=== PATIENT | male | born 1955 | race Caucasian/White ===

== ENCOUNTER 2025-03-05 13:26 | Outpatient (OUT) | payer MEDICARE, OTHER, SELFPAY ==
--- OUTSIDE RECORDS SUMMARY | 2025-02-19 23:59 | XMS_ITS | Continuity of Care Document ---
Author Organization [facility] Address Unknown Care Team Providers Care Egg Separator Name Role Phone ELIOT MUÑOZ Primary Care Physician Gladys Mix Unavailable Unavailable Encounter [facility] [id number] Date(s): 02/19/25 - 02/19/25 [address] [place], [place] [address] Discharge Disposition: Home (Routine DC) Attending Physician: Norman HOU MD Admitting Physician: Norman HOU MD Encounter Type: Lab Drop off Allergies, Adverse Reactions, Alerts SubstanceCriticalitySeverityReactionReaction SeverityStatusVicodinHigh criticalitySevereItchingActive Treatment Plan Future Appointments Appointment Date:02/26/2025 08:45:00 AM Scheduled Provider:Norman HOU MD Location:[facility] Appointment Type:URO Office Visit Immunizations Given and Recorded VaccineDateStatusRefusal Reasoninfluenza virus vaccine, dgepzetjuxn19/6/24 Recordedinfluenza virus vaccine, cylwydoykpq93/19/23Recordedinfluenza virus vaccine, kbduafzaecw77/8/22Recordedinfluenza virus vaccine, rjnxyddbulj86/23/21 Recordedinfluenza virus vaccine, inactivated01/06/20Recordedinfluenza virus vaccine, inactivated12/30/19Recordedinfluenza virus vaccine, inactivated01/03/19 Recordedinfluenza virus vaccine, xpsrucziznz19/8/18Recordedinfluenza virus vaccine, vlowkirhppl46/1/18Recordedinfluenza virus vaccine, inactivated12/31/16 Recordedinfluenza virus vaccine, rasjpzleafj11/9/16Recordedpneumococcal 23- valent kxmejet64/20/18XoalczyaRIZY-EjN-6 (COVID-19) mRNAMUL.ORD![id number] RecordedSARSCoV2 mRNA(nfsccwkdp-byiz-ixjdwf) vac07/17/2108BhodhlzrHFYE-FvR-9 (COVID- 19) mRNA BNT-162b2 vax10/09/2812UphlotjsPYCI-DqE-7 (COVID-19) mRNA BNT-162b2 vax2 07/10/2040KyfcsRERP-DjV-6 (COVID-19) mRNA BNT-162b2 vax3/03/30Givenzoster vaccine, ddnlbtsexkn03/10/19Recordeddiphtheria/pertussis, acel/tetanus adult09/18/18 Recordedpneumococcal 13-valent vaccine12/31/16Recorded 1Result Comment: 2023-07-03: TOLERATED WELL 2Reason for Medication: Prophylaxis 3Reason for Medication: Prophylaxis Medications atorvastatin 20 mg Tab 20 mg = 1 tab(s), Oral, Daily, Refills(s) 0, High cholesterol Start Date: 03/05/18 Status: Ordered Medication Dispense Status: Completed Total Allowed Fills: 1 Fills Dispensed: 0 Cipro 500 mg Tab 500 mg = 1 tab(s), Oral, q12hr, X 30 day(s), # 60 tab(s), Refills(s) 0, Pharmacy: [facility] [id number], 171, cm, 01/22/25 9:00:00 EDT, Height/Length Dosing, 90, kg, 01/22/25 9:00:00 EDT, Weight Dosing Start Date: 01/22/25 Stop Date: 02/21/25 Status: Ordered Medication Dispense Status: Completed Quantity: 60.0 Unit: tab(s) Total Allowed Fills: 1 Fills Dispensed: 0 Indications: Inflammatory disease of prostate, unspecified; duloxetine 30 mg oral delayed release capsule 30 mg = 1 cap(s), Oral, BID Start Date: 01/22/25 Status: Ordered Medication Dispense Status: Completed Total Allowed Fills: 1 Fills Dispensed: 0 Fiber Tabs 625 mg oral tablet 625 mg = 1 tab(s), Oral, BID, Constipation Start Date: 02/10/22 Status: Ordered Medication Dispense Status: Completed Total Allowed Fills: 1 Fills Dispensed: 0 Lunesta 3 mg Tab 3 mg = 1 tab(s), Oral, Once a day (at bedtime), PRN for insomnia Start Date: 01/22/25 Status: Ordered Medication Dispense Status: Completed Total Allowed Fills: 1 Fills Dispensed: 0 Lyrica 200 mg Cap 200 mg = 1 cap(s), Oral, BID Start Date: 01/22/25 Status: Ordered Medication Dispense Status: Completed Total Allowed Fills: 1 Fills Dispensed: 0 MCT MCT, 1 tab, Oral, Daily Start Date: 01/22/25 Status: Ordered Medication Dispense Status: Completed Total Allowed Fills: 1 Fills Dispensed: 0 metoprolol succinate 25 mg ER Tab 25 mg = 1 tab(s), Oral, Daily Start Date: 01/22/25 Status: Ordered Medication Dispense Status: Completed Total Allowed Fills: 1 Fills Dispensed: 0 [place]-3 Fish Oil Oral, Daily Start Date: 01/22/25 Status: Ordered Medication Dispense Status: Completed Total Allowed Fills: 1 Fills Dispensed: 0 tamsulosin 0.4 mg Cap 0.4 mg = 1 cap(s), Oral, BID, X 30 day(s), # 60 cap(s), Refills(s) 11, Pharmacy: [facility] [id number], 171, cm, 01/22/25 9:00:00 EDT, Height/Length Dosing, 90, kg, 01/22/25 9:00:00 EDT, Weight Dosing Start Date: 01/22/25 Stop Date: 01/17/26 Status: Ordered Medication Dispense Status: Completed Quantity: 60.0 Unit: cap(s) Total Allowed Fills: 12 Fills Dispensed: 0 Indications: Benign prostatic hyperplasia with lower urinary tract symptoms; Testosterone Cypionate 200 mg/mL intramuscular solution 200 mg = 1 mL, IntraMuscular, q2wk, Refills(s) 0 Start Date: 07/10/23 Status: Ordered Medication Dispense Status: Completed Total Allowed Fills: 1 Fills Dispensed: 0 Vitamin B-12 1000 mcg oral tablet 1,000 mcg = 1 tab(s), Oral, Daily Start Date: 01/22/25 Status: Ordered Medication Dispense Status: Completed Total Allowed Fills: 1 Fills Dispensed: 0 Vitamin D3 5000 intl units (125 mcg) oral tab 125 mcg = 1 tab(s), Oral, Daily Start Date: 01/22/25 Status: Ordered Medication Dispense Status: Completed Total Allowed Fills: 1 Fills Dispensed: 0 Problem List ConditionConfirmationCourseEffective DatesStatusHealth StatusInformantAnxiety ConfirmedActiveAsymptomatic microscopic hematuriaConfirmedActiveBPH with obstruction/lower urinary tract symptomsConfirmedActiveBMI 32.0-32.9,adult ConfirmedActiveCAD (coronary artery disease)ConfirmedActiveAnticoagulated ConfirmedActiveDysuriaConfirmedResolvedErectile dysfunctionConfirmedActiveFormer smokerConfirmedActiveHypercholesteremiaConfirmedResolvedHigh cholesterol ConfirmedActiveHTN (hypertension)ConfirmedResolvedImpotenceConfirmedActive Incomplete bladder emptyingConfirmedActiveLower back painConfirmedActiveMale hypogonadismConfirmedActiveMicroscopic hematuriaConfirmedResolvedNocturia ConfirmedActiveObesityConfirmedActiveHealed myocardial infarctionConfirmed ResolvedOsteoarthritisConfirmedActiveKnee qxuoxbvcwnvnkk9YqqbquadoUbwgfu Screening PSA (prostate specific antigen)ConfirmedActiveWeak urine stream ConfirmedResolvedProstate noduleConfirmedResolvedProstatitisConfirmedActive Elevated PSAConfirmedActiveRCT (rotator cuff tear)ConfirmedActiveSleep apnea ConfirmedActiveLeaking of urineConfirmedResolvedStarting and stopping of urinary stream during micturitionConfirmedResolved 1left Procedures ProcedureDateRelated DiagnosisBody FnhiBuygxqJtaosgf73874IeehutpziEybbnedbq of right sacroiliac puleq650/7/23CompletedIschial bursa dkecidxwc531/31/23Completed L4/5, L5/S1 left transforaminal epidural steroid ofdzkghza73/22/23Completed Injection of sacroiliac joint using fluoroscopic ecfxniqo49/13/23Completed Injection of nerve root of lumbar spine using fluoroscopic bxkyqnfj24/24/23 CompletedArthroscopy of gxsainpv63/18/79ZmzzmelxpZjbiptlsnv2/22/21Completed Transrectal biopsy of prostate using ultrasound (US) gsdwxuer42/29/19Completed Total knee tqytqopixsmw14/9/19CompletedACDF C5-S9IlpkmjaneCezjiunfe MBB L3-L58 CompletedInsertion of coronary artery eldrb8Vmcazsikaltcsi inguinal hernia repairCompleted 1penile 290% relief 3left ischial bursa injection-0% relief 430% relief 5Right- 100% relief 6L4/5 + L5/S1 65-70% relief 7left 8B/L MBB L3-L5 90% Relief for 6 hours 910 years ago Results Laboratory List NameDateCBC w/ Auto Diff02/19/25PSA Free & Total02/19/25 Most recent to oldest [Reference Range]:1PSA Free&Total [>=25.0 %]16.7 % *LOW* (02/19/25 9:45 AM)Basophil Auto [0.0-2.0 %]0.4 % (02/19/25 9:45 AM)Eos Auto [0.0-8.0 %]0.7 % (02/19/25 9:45 AM)Hct [37.7-49.0 %]41.3 % (02/19/25 9:45 AM)Hgb [13.5-17.5 gm/dL]13.5 gm/dL (02/19/25 9:45 AM)Lymph Auto [14.0-50.0 %]31.0 % (02/19/25 9:45 AM)PSA [0.1-3.5 ng/mL]2.4 ng/mL1 (02/19/25 9:45 AM)RBC [4.3-5.9 E12/L]5.1 E12/L (02/19/25 9:45 AM)RDW [10.9-14.2 %]21.3 % *HI* (02/19/25 9:45 AM)MCH [27.0-34.0 pg]26.5 pg *LOW* (02/19/25 9:45 AM)MCHC [31.4-36.0 gm/dL]32.7 gm/dL (02/19/25 9:45 AM)MCV [80.0-100.0 fL]81.0 fL (02/19/25 9:45 AM)[place] Auto [4.0-14.0 %]7.7 % (02/19/25 9:45 AM)MPV [6.4-10.8 fL]9.1 fL (02/19/25 9:45 AM)Neutro Auto [36.0-75.0 %]60.2 % (02/19/25 9:45 AM)Platelet [150.0-500.0 E9/L]159.0 E9/L (02/19/25 9:45 AM)WBC [4.0-11.0 E9/L]8.0 E9/L (02/19/25 9:45 AM)PSA Free0.4 ng/mL2 *NA* (02/19/25 9:45 AM)[place] Absolute [0.2-1.0 E9/L]0.6 E9/L (02/19/25 9:45 AM)Eos Absolute [0.0-0.5 E9/L]0.1 E9/L (02/19/25 9:45 AM)Basophil Absolute [0.0-0.2 E9/L]0.0 E9/L (02/19/25 9:45 AM)Neutro Absolute [2.0-7.5 E9/L]4.8 E9/L (02/19/25 9:45 AM)Lymph Absolute [1.0-4.0 E9/L]2.5 E9/L (02/19/25 9:45 AM) 1Interpretive Data: The concentration of PSA determined by different manufacturers can vary due to differences in assay methods and reagent specificity. Values obtained from different assay methods cannot be used interchangeably. The methodology used for this result was chemiluminescence using [employer]'s Access Hybritech PSA reagent. 2Interpretive Data: The concentration of free PSA and total PSA determined with assays from different manufacturers can vary due to differences in assay methods and specificity. Values obtained with different dock or pier laborer's assays cannot be used interchangeably. The methodology used to obtain this result was chemiluminescence using [employer]'s Access Hybritech PSA reagent and Access Hybritech free PSA reagent. Social History Social History TypeResponseSmoking StatusFormer smoker, quit more than 30 days ago; Tobacco Use: quit 40 years ago;Never; Type: Cigarettes; Tobacco use per day: 10; Stopped at age: 39; entered on: 01/22/25Birth SexMaleSex RepresentationMale (finding) Implantable Device List ProcedureProviderProcedure DateDevice TypeSiteSHOULDER ARTHROSCOPY W/ POSSIBLE REPAIRBrown Tevin NAVARRO A104/27/21UnknownShoulder RDevice IdentifierSerial Number Lot or Batch NumberManufacturing DateExpiration DateDistinct Identification Code MRI SafetyImplantable StatusAssigning [id number] 10/07/2539BzzojgwSbqdshtReg[id number]/31/26Unknown DtzuhreThc[id number]/UnknownUnknownActive [id number]/31/27UnknownUnknownActiveUnknownUnknown [id number]/31/27UnknownUnknownActiveUnknown Patient Care team information Care Team Personnel Name: ELIOT MUÑOZ MD Position: FT Physician Member Role: Primary Care Physician Address: [address] [place] [id number] Telecom: Name: Gladys Mix [facility] Staff Search Member Role: Other Care Team Related Persons Name: JUANA MOE Name: JUANA MOE Insurance Providers Guarantor name: MARÍA SANTIAGO [employer] Plan Information #: 1 Payer: MEDICARE Payer Identifier: [id number] Member Number: [id number] Group Number: AB Subscriber Identifier: [id number] Relationship to Subscriber: self Coverage Type: MEDICARE Coverage Verification Date: Telecom: [phone] Address: [facility] [address] Health Plan Information #: 2 Payer: [employer] Payer Identifier: [id number] Member Number: [id number] Group Number: [id number] Subscriber Identifier: [id number] Relationship to Subscriber: self Coverage Type: PRIVATE HEALTH INSURANCE Coverage Verification Date: LEONA Telecom: [phone] Address: [facility] [address] [place] [id number]
--- OUTSIDE RECORDS SUMMARY | 2025-02-19 23:59 | XMS_ITS | Continuity of Care Document ---
Author Organization [facility] Address [address] [place] [address] Care Team Providers Care Clinic Physician Director Name Role Phone ELIOT MUÑOZ Primary Care Physician [phone] Gladys Mix Unavailable Unavailable Encounter [facility] [id number] Date(s): 02/19/25 - 02/19/25 [facility] [address] [place] [address] [place] Encounter Diagnosis BPH with obstruction/lower urinary tract symptoms(Discharge Diagnosis) - 02/19/25 Discharge Disposition: Home (Routine DC) Attending Physician: Norman HOU MD Encounter Type: Clinic Allergies, Adverse Reactions, Alerts SubstanceCriticalitySeverityReactionReaction SeverityStatusVicodinHigh criticalitySevereItchingActive Treatment Plan Future Appointments Appointment Date:02/26/2025 08:45:00 AM Scheduled Provider:Norman HOU MD Location:[facility] Appointment Type:URO Office Visit Immunizations Given and Recorded VaccineDateStatusRefusal Reasoninfluenza virus vaccine, thyryjyatul14/6/24 Recordedinfluenza virus vaccine, odepfctwtfv32/19/23Recordedinfluenza virus vaccine, ahhsiugacug35/8/22Recordedinfluenza virus vaccine, mqistktgefv69/23/21 Recordedinfluenza virus vaccine, inactivated01/05/Recordedinfluenza virus vaccine, inactivated12/29/Recordedinfluenza virus vaccine, inactivated01/03/19 Recordedinfluenza virus vaccine, xgpmuueupph19/8/18Recordedinfluenza virus vaccine, orezscxbujh28/1/18Recordedinfluenza virus vaccine, inactivated12/31/16 Recordedinfluenza virus vaccine, qdvxkudocik08/9/16Recordedpneumococcal 23- valent /20/94YwntubvkWCEZ-LhY-1 (COVID-19) mRNAMUL.ORD![id number] RecordedSARSCoV2 mRNA(fwzihewxw-hpzg-megcaz) vac07/17/2126GarjlavtIKCQ-YbP-5 (COVID- 19) mRNA BNT-162b2 vax10/09/2804AybpenagABQF-CrQ-0 (COVID-19) mRNA BNT-162b2 vax2 07/10/2057KwshzURKV-MtV-7 (COVID-19) mRNA BNT-162b2 vax33/03/30Givenzoster vaccine, zjbtrbgjiff69/10/19Recordeddiphtheria/pertussis, acel/tetanus adult09/18/18 Recordedpneumococcal 13-valent vaccine12/31/16Recorded 1Result Comment: [...] day(s), # 60 tab(s), Refills(s) 0, Pharmacy: [facility] [id number], 171, cm, 01/22/25 9:00:00 EDT, Height/Length Dosing, [...] Total Allowed Fills: 1 Fills Dispensed: 0 Rose-3 Fish Oil Oral, Daily Start Date: 01/22/25 Status: Ordered Medication Dispense Status: Completed Total Allowed Fills: 1 Fills Dispensed: 0 tamsulosin 0.4 mg Cap 0.4 mg = 1 cap(s), Oral, BID, X 30 day(s), # 60 cap(s), Refills(s) 11, Pharmacy: [facility] [id number], 171, cm, 01/22/25 9:00:00 EDT, Height/Length Dosing, [...] painConfirmedActiveMale hypogonadismConfirmedActiveMicroscopic hematuriaConfirmedResolvedNocturia ConfirmedActiveObesityConfirmedActiveHealed myocardial infarctionConfirmed ResolvedOsteoarthritisConfirmedActiveKnee fkvtbfaegdvffu3ZhfzgagzvFcixci Screening PSA (prostate specific antigen)ConfirmedActiveWeak urine stream ConfirmedResolvedProstate noduleConfirmedResolvedProstatitisConfirmedActive Elevated PSAConfirmedActiveRCT (rotator cuff tear)ConfirmedActiveSleep apnea ConfirmedActiveLeaking of urineConfirmedResolvedStarting and stopping of urinary stream during micturitionConfirmedResolved 1left Procedures ProcedureDateRelated DiagnosisBody UomaRwdkczKxwjmre05317XvanomwowGfhxjsljz of right sacroiliac qxyue375/7/23CompletedIschial bursa xhojirwwm106/31/23Completed L4/5, L5/S1 left transforaminal epidural steroid lbudqmeus97/22/23Completed Injection of sacroiliac joint using fluoroscopic mslyzatd43/13/23Completed Injection of nerve root of lumbar spine using fluoroscopic /24/23 CompletedArthroscopy of bebjwtmf10/18/42WvvldcxfzSgopzwdizq4/22/21Completed Transrectal biopsy of prostate using ultrasound (US) rfzoudxe41/29/19Completed Total knee yzlwhqhyuifg05/9/19CompletedACDF C5-X9OaolhhqhkDioagkaio MBB L3-L58 CompletedInsertion of coronary artery cdfss8Nawkdlvvhcqjqm inguinal hernia repairCompleted 1penile 290% relief 3left ischial bursa injection-0% relief 430% relief 5Right- 100% relief 6L4/5 + L5/S1 65-70% relief 7left 8B/L MBB L3-L5 90% Relief for 6 hours 910 years ago Social History Social History TypeResponseSmoking StatusFormer smoker, quit more than 30 days ago; Tobacco Use: quit 40 years ago;Never; Type: Cigarettes; Tobacco use per day: 10; Stopped at age: 39; entered on: 01/22/25Birth SexMaleSex RepresentationMale (finding) Implantable Device List ProcedureProviderProcedure DateDevice TypeSiteSHOULDER ARTHROSCOPY W/ POSSIBLE REPAIRBrowTevin graham DO04/27/21UnknownShoulder RDevice IdentifierSerial Number Lot or Batch NumberManufacturing DateExpiration DateDistinct Identification Code MRI SafetyImplantable StatusAssigning [id number] 10/07/2556FvicqtcLpdsbgvZvq[id number]/31/26Unknown WbkxsmkYhnp[id number]/31/27UnknownUnknownActive [id number]/31/27UnknownUnknownActiveUnknownUnknown [id number]/31/27UnknownUnknownActiveUnknown Patient Care team information Care Team Personnel Name: ELIOT MUÑOZ MD Position: FT Physician Member Role: Primary Care Physician Address: [address] [place], [place] [address] Telecom: Name: Gladys Mix Position: [employer] Outreach Office Staff Search Member Role: Other Care Team Related Persons Name: JUANA MOE Name: JUANA MOE Insurance Providers Guarantor name: MARÍA Vazquez [facility] [place] Plan Information #: 1 Payer: MEDICARE Payer Identifier: [id number] Member Number: [id number] Group Number: AB Subscriber Identifier: [id number] Relationship to Subscriber: self Coverage Type: MEDICARE Coverage Verification Date: 25 Telecom: [phone] Address: [facility] [address] [place], [place] [address] Health Plan Information #: 2 Payer: [employer] Payer Identifier: [id number] Member Number: [id number] Group Number: [id number] Subscriber Identifier: [id number] Relationship to Subscriber: self Coverage Type: PRIVATE HEALTH INSURANCE Coverage Verification Date: 25 Telecom: [phone] Address: [address] [place] [address]
--- OUTSIDE RECORDS SUMMARY | 2025-02-25 13:20 | XMS_ITS | Encounter Summary ---
Author Organization [facility] Address [address] [facility] [place] [address] Care Team Providers Care Cloth Dyer Name Role Phone Moy Villa MD Primary Care Provider [phone] Moy Villa MD Unavailable [phone] Coral Ceballos [employer] Unavailable [phone] Radha Weiner RN Unavailable [phone] Encounter Details DateTypeDepartmentCare Team (Latest Contact Info)Srmkssjjrbw93/18/2025 1:20 PM ESTOffice Visit [facility] [address] [place] [address] Coral Ceballos, [place] [employer] [address] [place] [address] Routine general medical examination at health care facility (Primary Dx); Low libido; Major depressive disorder with single episode, in partial remission; Primary insomnia; Medicare annual wellness visit, subsequent; BMI 31.0-31.9,adult Social History Tobacco UseTypesPacks/DayYears UsedDateSmoking Tobacco: FormerCigarettesQuit: 1993Smokeless Tobacco: Never Tobacco Cessation:Counseling Given: Not Answered Alcohol UseStandard Drinks/WeekCommentsYes6 (1 standard drink = 0.6 oz pure alcohol)caffeine intake: 2-3 cups per day of [id number] Health LiteracyAnswer Date RecordedHow often do you [...] times a week11/01/2024How often do you attend christianity or zoroastrian services?Never11/01/2024Do you belong to any clubs or organizations such as christianity groups, unions, fraternal or athletic groups, or [...] have six or more drinks on one occasion?Gabtzb1708/13/2024Overall Financial Resource Strain (CARDIA)AnswerDate RecordedHow hard is it for you to pay for the very basics like food, housing, medical care, and heating?Not hard at all 04/09/2024HQ-2AnswerDate RecordedPatient Health Questionnaire-2 Score0 02/25/2025Fin[facility] [place] of Occupational Health - Occupational Stress QuestionnaireAnswerDate RecordedDo you feel stress - tense, restless, nervous, or anxious, or unable to sleep at night because yourmind is troubled all the time - these days?Only a phrjjq8204/09/2024Exercise Vital SignAnswerDate Recorded On average, how many [...] steady place to sleep or slept in [place]ter (including now)?No10/20/2022Housing Stability Vital SignAnswerDate RecordedIn the last 12 months, was there a time when you were not able to pay the mortgage or rent on time?No11/01/2024In the past 12 months, how many times have you moved where you were living? At any time in the past 12 months, were you homeless or living in a nursing home (including now)?No11/01/2024Sex and Gender InformationValueDate RecordedSex Assigned at BirthNot on fileLegal EuuZhsz9906/22/2022 7:05 PM EDTGender Identity Not on fileSexual VovovluxhuxNpkjwuwx88/24/2023 8:33 PM EDTOccupationIndustryJob Start DateJob End DateRetiredNot on fileNot on fileNot on filedocumented as of this encounter Last Filed Vital Signs Vital SignReadingTime TakenCommentsBlood Lehhgmaj938/7002/25/2025 1:21 PM EST Uxhdj883002/25/2025 1:21 PM DVUNgxayzhcqtj58.3 ??C (97.3 ??F)02/25/2025 1:21 PM ESTRespiratory Fsnt990204/27/2024 1:21 PM ESTOxygen Qdiepbszuu58%02/25/2025 1:21 PM ESTInhaled Oxygen Concentration--Pheags78.4 kg (206 lb)02/25/2025 1:21 PM EST Oomyis843.7 cm (5' 8 )02/25/2025 1:21 PM ESTBody [...] 1:00 PM Stella Law MAPatient Health Questionnaire-2 Algep82004/27/2024 1:00 PM Stella Law MA * QuestionAnswerDate [...] 1:00 PM Stella Law, MAPatient Health Questionnaire-9 Htysr33004/27/2024 1:00 PM Stella Law MA documented as of this encounter Progress Notes * oCral Ceballos, [place] - 02/25/2025 1:20 PM EST Images from [...] every 30 (thirty) days 9 each 0 kwmusctu-rolwxpwnf-wtyVMGGEpbckc (Polydex) 3.5-87806-5.1 ointment ophthalmic ointment pregabalin (Lyrica) 200 MG [...] Moy Villa MD as PCP - [facility] Coral Ceballos NP as Nurse Practitioner (Family [...] Do you have a medical power of crane operator cab?: Yes Who is your medical power of crane operator cab?: Daughter Objective : BP 102/70 Pulse 78 [...] Plan of Treatment DateTypeDepartmentCare Team (Latest Contact Info)Yyklruytsxc54/18/2026 10:00 AM ESTOffice Visit [facility] [address] [place] [address] Moy Villa MD [address] [place] [address] documented as of this encounter Visit Diagnoses Diagnosis Routine general medical examination at health care facility- Primary Routine general medical examination at a health care facility Low libido Major depressive disorder with single episode, in partial remission Primary insomnia Persistent disorder of initiating or maintaining sleep Medicare annual wellness visit, subsequent BMI 31.0-31.9,adult documented in this encounter Additional Health Concerns AssessmentNoted TimePHQ-9 Depression Total Score: 1:00 PM EST documented as of this encounter Care Teams Team MemberRelationshipSpecialtyStart DateEnd Date Moy Villa MD [address] [place] [address] PCP - GeneralFamily Medicine09/28/22 Moy Villa MD [address] [place] [address] PCP - ACO [facility]01/07/23 Coral Ceballos [place] [address] [place] [phone] Nurse PractitionerFamily Scucxvck03/30/24 Radha Weiner, YING [address] [place] [address] Registered NurseFamily Medicine10/30/24documented as of this encounter
--- OUTSIDE RECORDS SUMMARY | 2025-02-26 23:59 | XMS_ITS | Continuity of Care Document ---
Author Organization [facility] Address [address] [place] [address] Care Team Providers Care Manager Beauty Name Role Phone ELIOT MUÑOZ Primary Care Physician Gladys Mix Unavailable Unavailable Encounter [facility] [id number] Date(s): 02/26/25 - 02/26/25 [facility] [address] [facility] 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) - 02/26/25 Prostatitis(Discharge Diagnosis) - 02/26/25 Discharge Disposition: Home (Routine DC) Attending Physician: Norman HOU MD Encounter Type: Clinic Allergies, Adverse Reactions, Alerts SubstanceCriticalitySeverityReactionReaction SeverityStatusVicodinHigh criticalitySevereItchingActive Immunizations Given and Recorded VaccineDateStatusRefusal Reasoninfluenza virus vaccine, umejmvnicjy02/6/24 Recordedinfluenza virus vaccine, yftqhyqimna36/19/23Recordedinfluenza virus vaccine, znosikrwzna94/8/22Recordedinfluenza virus vaccine, znmakpbjfrs38/23/21 Recordedinfluenza virus vaccine, inactivated01/05/Recordedinfluenza virus vaccine, inactivated12/30/19Recordedinfluenza virus vaccine, inactivated01/03/19 Recordedinfluenza virus vaccine, pzpqyuvhfly10/8/18Recordedinfluenza virus vaccine, giaubyccmew06/1/18Recordedinfluenza virus vaccine, inactivated12/31/16 Recordedinfluenza virus vaccine, ppdjulyauto31/9/16Recordedpneumococcal 23- valent kmkboro15/20/93GjcplokdZEPZ-AoP-4 (COVID-19) mRNAMUL.ORD![id number] RecordedSARSCoV2 mRNA(ngkkgabxa-niet-axbgiz) vac07/17/2119XjlsdzbpQUML-DsC-4 (COVID- 19) mRNA BNT-162b2 vax10/09/2898IorjwlvgRHWV-LaU-5 (COVID-19) mRNA BNT-162b2 vax2 07/10/2028HtyovPIOS-DvX-2 (COVID-19) mRNA BNT-162b2 vax3/03/30Givenzoster vaccine, utkdfkwrwjz94/10/19Recordeddiphtheria/pertussis, acel/tetanus adult09/18/18 Recordedpneumococcal 13-valent vaccine12/31/16Recorded 1Result Comment: 2023-07-03: TOLERATED WELL 2Reason for Medication: Prophylaxis 3Reason for Medication: Prophylaxis Medications atorvastatin 20 mg Tab 20 mg = 1 tab(s), Oral, Daily, Refills(s) 0, High cholesterol Start Date: 03/05/18 Status: Ordered Medication Dispense Status: Completed Total Allowed Fills: 1 Fills Dispensed: 0 Cipro 500 mg Tab 500 mg = 1 tab(s), Oral, Daily, take one tab day before procedure and one tab after procedure, # 2 tab(s), Refills(s) 0, Pharmacy: [facility] [id number], 171, cm, 02/26/25 8:50:00 EST, Height/Length Dosing, 94.1, kg, 02/26/25 8:50:00 EST, Weight Dosing Start Date: 02/26/25 Status: Ordered Medication Dispense Status: Completed Quantity: 2.0 Unit: tab(s) Total Allowed Fills: 1 Fills Dispensed: 0 duloxetine 30 mg oral delayed release capsule [...] Total Allowed Fills: 1 Fills Dispensed: 0 Dorado-3 Fish Oil Oral, Daily Start Date: 01/22/25 Status: Ordered Medication Dispense Status: Completed Total Allowed Fills: 1 Fills Dispensed: 0 tamsulosin 0.4 mg Cap 0.4 mg = 1 cap(s), Oral, BID, X 30 day(s), # 60 cap(s), Refills(s) 11, Pharmacy: [facility] [id number], 171, cm, 01/22/25 9:00:00 EDT, Height/Length Dosing, [...] painConfirmedActiveMale hypogonadismConfirmedActiveMicroscopic hematuriaConfirmedResolvedNocturia ConfirmedActiveObesityConfirmedActiveHealed myocardial infarctionConfirmed ResolvedOsteoarthritisConfirmedActiveKnee avygrgsspnqnvs5CpdefajkeUpcmml Screening PSA (prostate specific antigen)ConfirmedActiveWeak urine stream ConfirmedResolvedProstate noduleConfirmedResolvedProstatitisConfirmedActive Elevated PSAConfirmedActiveRCT (rotator cuff tear)ConfirmedActiveSleep apnea ConfirmedActiveLeaking of urineConfirmedResolvedStarting and stopping of urinary stream during micturitionConfirmedResolved 1left Procedures ProcedureDateRelated DiagnosisBody WztuCqxmqdKspumcj11307IozigwkzdDssnvnthx of right sacroiliac anlra986/7/23CompletedIschial bursa koqdsstwa186/31/23Completed L4/5, L5/S1 left transforaminal epidural steroid hgdlakzly02/22/23Completed Injection of sacroiliac joint using fluoroscopic jgtkpuob84/13/23Completed Injection of nerve root of lumbar spine using fluoroscopic kfhparbs91/24/23 CompletedArthroscopy of ycixocdu06/18/65BwfjckrbhNombaperjc5/22/21Completed Transrectal biopsy of prostate using ultrasound (US) wrzkhirh56/29/19Completed Total knee hnnfhwvqatgz68/9/19CompletedACDF C5-D5HaahjlfybUwdgiwwdu MBB L3-L58 CompletedInsertion of coronary artery rhaqf7Jnbygfiauslcig inguinal hernia repairCompleted 1penile 290% relief 3left [...] 10; Stopped at age: 39; entered on: 02/26/25Birth SexMaleSex RepresentationMale (finding) Implantable Device List ProcedureProviderProcedure DateDevice TypeSiteSHOULDER ARTHROSCOPY W/ POSSIBLE REPAIRBrown DODavidTevin A104/27/21UnknownShoulder RDevice IdentifierSerial Number Lot or Batch NumberManufacturing DateExpiration DateDistinct Identification Code MRI SafetyImplantable StatusAssigning [id number] 10/07/2529RowwxxkPmxoiszCwv[id number]/31/26Unknown KfvvyqjQiw[id number]/31/27UnknownUnknownActive [id number]/31/27UnknownUnknownActiveUnknownUnknown [id number]/31/27UnknownUnknownActiveUnknown Hospital Discharge Instructions Patient Education 02/26/2025 09:34:13 Urodynamic Testing Urodynamic Testing Urodynamic tests are done to determine how well your lower urinary tract is working. The lower urinary tract includes your bladder and the part of your body that drains urine from the bladder (urethra). When your kidneys filter your blood, urine is stored in your bladder until you feel the urge to urinate. Urination requires coordination between the nerves and muscles of your bladder and urethra. When your lower urinary tract is working well, you should be able to: ??? Start urinating when your bladder is full. ??? Empty your bladder completely. ??? Control the flow of your urine. Why do I need urodynamic testing? You may need urodynamic testing to help find the cause of any of these problems: ??? Leaking urine (incontinence). ??? Problems starting or stopping your urine flow. ??? Frequent or painful urination. ??? Frequent urinary tract infections. ??? Being unable to empty your bladder completely. ??? Having strong urges to pass urine (urgency). ??? Having a weak flow of urine. What are the risks? Generally, these tests are safe. However, some of the tests have risks, including: ??? Discomfort. ??? Frequent urge to urinate. ??? Bleeding. ??? Infection. ??? Allergic reactions to medicines or dyes (contrast material). What happens before the test? Ask your health care provider about changing or stopping your regular medicines. This is especially important if you are taking diabetes medicines or blood thinners. ??? You may be asked to avoid urinating before coming to the test so that you arrive with a full bladder. ??? Tell a health care provider about: ??? Any allergies you have. ??? All medicines you are taking, including vitamins, herbs, eye drops, creams, and riqj-abz-judhcqn medicines. ??? Whether you are or may be . What happens during the test? You may have various urodynamic tests. The tests may be done separately or may all be done during one visit. You may be given an antibiotic medicine before or after testing to help prevent infection. The types of tests that may be done include: Uroflowmetry This test measures how much urine you pass and how long it takes to pass. ??? You will urinate into a certain type of toilet or device (flowmeter). ??? The device will measure the volume and the time of your urine flow. ??? These measurements will be sent to a computer that creates a graph of your urine flow. Postvoid residual measurement This test measures how much urine is left in your bladder after you urinate. ??? The test may be done with ultrasound. In this method, sound waves and a computer will be used to create an image of your bladder. ??? The test can also be done by inserting a thin, flexible tube (catheter) into your bladder afteryou urinate. The remaining urine will be removed through the catheter so it can be measured. ??? Remaining urine will be measured in milliliters (mL). If you have more than 100 mL left in yourbladder after you urinate, your bladder is not emptying as it should. Cystometric testing This test uses a type of bladder catheter that can measure pressure. ??? You may be given a medicine to numb the area (local anesthetic). ??? The area around the opening of your urethra will be cleaned. ??? A urinary catheter will be passed through your urethra into your bladder and used to empty yourbladder completely. ??? A measuring catheter will be placed, and your bladder will be filled with warm, germ-free (sterile) water. ??? Pressure measurements will be taken: ??? As your bladder fills. ??? When you feel the need to urinate. ??? As your bladder is emptied. ??? You may be asked to cough or bear down to check for leakage. ??? In some cases, your bladder may be filled with a material that shows up on X-rays (contrast material) so that X-ray pictures can be taken during the test. Electromyogram This test measures the electrical activity of the nerves and muscles of your bladder and the opening of your urethra. ??? Sticky patches (electrodes) will be placed near your rectum and urethra to measure electrical activity. ??? The measurements will show how well your nerves are communicating with your muscles. What can I expect after the test? You should be able to go home right away and do your usual activities. ??? You may be told to drink a glass of water every 30 minutes for the first 2 hours after testing. ??? Taking a warm bath or using warm, wet cloths (warm compresses) may relieve any discomfort near your urethra. What do the results mean? Talk with your health care provider about what your results mean. Some common causes for abnormal results from urodynamic tests include: ??? Enlarged prostate in men. ??? Overactive bladder. ??? Urinary tract infection. ??? Nervous system diseases. ??? Spinal cord damage. Questions to ask your health care provider Ask your health care provider, or the department that is doing the test: ??? When will my results be ready? How will I get my results? What are my treatment options? What other tests do I need? What are my next steps? Contact a health care provider if: ??? You have pain. ??? You have blood in your urine. ??? You have chills. ??? You have a fever. Summary ??? Urodynamic tests are done to determine how well your lower urinary tract is working. The lower urinary tract includes your bladder and urethra. ??? You may need urodynamic testing to help find the cause of various problems with urination, suchas leaking urine (incontinence) or problems starting or stopping your urine flow. ??? You may have various urodynamic tests. The tests may be done separately or may all be done during one testing visit. ??? Talk with your health care provider about what your results mean. ??? Contact your health care provider if you have pain, chills, a fever, or blood in your urine. This information is not intended to replace advice given to you by your health care provider. Make sure you discuss any questions you have with your health care provider. Document Revised: 12/08/2021 Document Reviewed: 10/30/2020 [employer] Patient Education ?? 2023 [employer]. 02/26/2025 09:34:11 Cystoscopy Cystoscopy Cystoscopy is a procedure that is used to help diagnose and sometimes treat conditions that affect the lower urinary tract. The lower urinary tract includes the bladder and the urethra. The urethra is the tube that drains urine from the bladder. Cystoscopy is done using a thin, tube-shaped instrument with a light and camera at the end (cystoscope). The cystoscope may be hard or flexible, depending on the goal of the procedure. The cystoscope is inserted through the urethra, into the bladder. Cystoscopy may be recommended if you have: ??? Urinary tract infections that keep coming back. ??? Blood in the urine (hematuria). ??? An inability to control when you urinate (urinary incontinence) or an overactive bladder. ??? Unusual cells found in a urine sample. ??? A blockage in the urethra, such as a urinary stone. ??? Painful urination. ??? An abnormality in the bladder found during an intravenous pyelogram (IVP) or CT scan. Cystoscopy may also be done to remove a sample of tissue to be examined under a microscope (biopsy). Tell a health care provider about: ??? Any allergies you have. ??? All medicines you are taking, including vitamins, herbs, eye drops, creams, and oxcx-bgj-kmdpgtq medicines. ??? Any problems you or family members have had with anesthetic medicines. ??? Any blood disorders you have. ??? Any surgeries you have had. ??? Any medical conditions you have. ??? Whether you are or may be . What are the risks? Generally, this is a safe procedure. However, problems may occur, including: ??? Infection. ??? Bleeding. ??? Allergic reactions to medicines. ??? Damage to other structures or organs. What happens before the procedure? Medicines Ask your health care provider about: ??? Changing or stopping your regular medicines. This is especially important if you are taking diabetes medicines or blood thinners. ??? Taking medicines such as aspirin and ibuprofen. These medicines can thin your blood. Do not take these medicines unless your health care provider tells you to take them. ??? Taking obtw-ncn-qcuuenk medicines, vitamins, herbs, and supplements. Tests You may have an exam or testing, such as: ??? X-rays of the bladder, urethra, or kidneys. ??? CT scan of the abdomen or pelvis. ??? Urine tests to check for signs of infection. General instructions ??? Follow instructions from your health care provider about eating or drinking restrictions. ??? Ask your health care provider what steps will be taken to help prevent infection. These steps may include: ??? Washing skin with a germ-killing soap. ??? Taking antibiotic medicine. ??? Plan to have a responsible adult take you home from the hospital or clinic. What happens during the procedure? You will be given one or more of the following: ??? A medicine to help you relax (sedative). ??? A medicine to numb the area (local anesthetic). ??? The area around the opening of your urethra will be cleaned. ??? The cystoscope will be passed through your urethra into your bladder. ??? Germ-free (sterile) fluid will flow through the cystoscope to fill your bladder. The fluid willstretch your bladder so that your health care provider can clearly examine your bladder matthew. ??? Your doctor will look at the urethra and bladder. Your doctor may take a biopsy or remove stones. ??? The cystoscope will be removed, and your bladder will be emptied. The procedure may vary among health care providers and hospitals. What can I expect after the procedure? After the procedure, it is common to have: ??? Some soreness or pain in your abdomen and urethra. ??? Urinary symptoms. These include: ??? Mild pain or burning when you urinate. Pain should stop within a few minutes after you urinate.This may last for up to 1 week. ??? A small amount of blood in your urine for several days. ??? Feeling like you need to urinate but producing only a small amount of urine. Follow these instructions at home: Medicines ??? Take wwze-eao-rkaxbkr and prescription medicines only as told by your health care provider. ??? If you were prescribed an antibiotic medicine, take it as told by your health care provider. Donot stop taking the antibiotic even if you start to feel better. General instructions ??? Return to your normal activities as told by your health care provider. Ask your health care provider what activities are safe for you. ??? If you were given a sedative during the procedure, it can affect you for several hours. Do not drive or operate machinery until your health care provider says that it is safe. ??? Watch for any blood in your urine. If the amount of blood in your urine increases, call your health care provider. ??? Follow instructions from your health care provider about eating or drinking restrictions. ??? If a tissue sample was removed for testing (biopsy) during your procedure, it is up to you to get your test results. Ask your health care provider, or the department that is doing the test, when your results will be ready. ??? Drink enough fluid to keep your urine pale yellow. ??? Keep all follow-up visits. This is important. Contact a health care provider if: ??? You have pain that gets worse or does not get better with medicine, especially pain when you urinate. ??? You have trouble urinating. ??? You have more blood in your urine. Get help right away if: ??? You have blood clots in your urine. ??? You have abdominal pain. ??? You have a fever or chills. ??? You are unable to urinate. Summary ??? Cystoscopy is a procedure that is used to help diagnose and sometimes treat conditions that affect the lower urinary tract. ??? Cystoscopy is done using a thin, tube-shaped instrument with a light and camera at the end. ??? After the procedure, it is common to have some soreness or pain in your abdomen and urethra. ??? Watch for any blood in your urine. If the amount of blood in your urine increases, call your health care provider. ??? If you were prescribed an antibiotic medicine, take it as told by your health care provider. Donot stop taking the antibiotic even if you start to feel better. This information is not intended to replace advice given to you by your health care provider. Make sure you discuss any questions you have with your health care provider. Document Revised: 12/08/2021 Document Reviewed: 11/06/2020 [employer] Patient Education ?? 2023 [employer]. 02/26/2025 09:31:50 Magnetic Resonance Imaging Magnetic Resonance Imaging Magnetic resonance imaging (MRI) is a painless test that produces detailed images of organs and tissues inside the body without using X-rays. During an MRI, strong magnets and radio waves work together to form images. MRI images may provide more details about a medical condition than X-rays, CT scans, and ultrasounds can provide. For a standard MRI, you will lie on a table that slides into a tunnel. In an open MRI, the tunnel will be open at the sides. In some cases, dye (contrast material) may be injected into your bloodstream to make the MRI images even clearer. Tell a health care provider about: ??? Any allergies you have. ??? All medicines you are taking, including vitamins, herbs, eye drops, creams, and xagb-piw-pmkrxps medicines. ??? Any surgeries you have had. ??? Any medical conditions you have. ??? Any metal you may have in your body. The magnets used in an MRI can cause metal objects in yourbody to move. Metal can also make it difficult to get clear images. Objects that may contain metal include: ??? Any joint replacement (prosthesis), such as an artificial knee or hip. ??? An implanted defibrillator, pacemaker, or neurostimulator. ??? A metallic ear implant (cochlear implant). ??? An artificial heart valve. ??? A metallic object in the eye. ??? Metal splinters. ??? Bullet fragments. ??? A port for delivering insulin or chemotherapy. ??? Any tattoos you have. Some of the darker inks can cause problems with testing. ??? Whether you are using a control implant such as an intrauterine device (IUD). ??? Whether you are , may be , or are . ??? Any fear of cramped spaces (claustrophobia). If this is a problem, it usually can be managed with medicines given prior to the MRI. What are the risks? Generally, this is a safe test. However, problems may occur, such as: ??? If you have metal in your body and it is close to the area being tested, it may be hard to get high-quality images. ??? If you are , you should avoid MRI tests during the first three months of . An MRI may affect an unborn baby. ??? If dye is used: ??? You may need to stop until the dye leaves your body naturally, if this applies. ??? There is a risk of an allergic reaction to the dye. You can take medicines to prevent this reaction or to treat it if you have allergy symptoms. ??? The dye can cause damage to your kidneys. Drinking plenty of water before and after the procedure can help prevent this problem. What happens before the procedure? You will be asked to remove all metal, including: ??? A watch, jewelry (including jewelry in piercings), and other metal objects. ??? Hearing aids. ??? Dentures. ??? An underwire bra. ??? Makeup. Some makeup contains small amounts of metal. ??? Braces and fillings are normally not a problem. ??? If you are , ask your health care provider if you need to pump before your test. You may need to stop temporarily if dye will be used. What happens during the procedure? You may be given earplugs or headphones to listen to music. The MRI machine can be noisy. ??? You will lie flat on your back on a long table. ??? If dye will be used, an IV will be inserted into one of your veins. Dye will be injected into your IV and travel through your bloodstream. ??? The table will slide into a tunnel that has magnets inside. When you are inside the tunnel, youwill still be able to talk to your health care provider. ??? You will be asked to lie very still while images are taken. Your health care provider will tellyou when you can move. You may have to wait a few minutes to make sure that the images produced during the test are clear. ??? When all images are produced, the table will slide out of the tunnel. The procedure can last from 30 minutes to over an hour. The procedure may vary among health care providers and hospitals. What can I expect after the procedure? You may be taken to a recovery area if sedation medicines were used. Your blood pressure, heartrate, breathing rate, and blood oxygen level will be monitored until you leave the hospital or clinic. ??? If dye was used: ??? It will leave your body through your urine within a day. You may be told to drink plenty of fluids to help flush the dye out of your system. ??? Do not breastfeed your child until your health care provider says that this is safe. Follow these instructions at home: ??? You may return to your normal activities right away, or as told by your health care provider. ??? It is up to you to get your test results. Ask your health care provider, or the department thatis doing the test, when your results will be ready. ??? Keep all follow-up visits. This is important. Talk with your health care provider about what your test results mean. Summary ??? Magnetic resonance imaging (MRI) is a painless test that produces detailed pictures of the inside of your body without using X-rays. Strong magnets and radio waves work together to form very detailed and clear images. ??? In some cases, dye (contrast material) may be injected into your body to make MRI images even clearer. ??? Before your MRI, be sure to tell your health care provider about any metal you may have in yourbody. ??? Talk with your health care provider about what your test results mean. This information is not intended to replace advice given to you by your health care provider. Make sure you discuss any questions you have with your health care provider. Document Revised: 12/08/2021 Document Reviewed: 07/29/2020 [employer] Patient Education ?? 2023 [employer] Follow Up Care 01/22/2025 09:43:24 With:SAVI PUGH, Norman Crowe, URL Address: [address] [place] [id number] When: Unknown Comments:sched??cysto/uros Patient Care team information Care Team Personnel Name: ELIOT MUÑOZ MD Position: FT Physician Member Role: Primary Care Physician Address: [address] [place] [id number] Telecom: Name: Gladys Mix Position: [facility] Staff Search Member Role: Other Care Team Related Persons Name: JUANA MOE Name: JUANA MOE Insurance Providers Guarantor name: MARÍA Taylor JACK Health Plan Information #: 1 Payer: MEDICARE Payer Identifier: [id number] Member Number: [id number] Group Number: [id number] Subscriber Identifier: [id number] Relationship to Subscriber: self Coverage Type: MEDICARE Coverage Verification Date: 25 Telecom: [phone] Address: [address] [address] [place] [id number] Health Plan Information #: 2 Payer: [employer] Payer Identifier: [id number] Member Number: [id number] Group Number: [id number] Subscriber Identifier: [id number] Relationship to Subscriber: self Coverage Type: PRIVATE HEALTH INSURANCE Coverage Verification Date: Telecom: [phone] Address: [address] [place] [address]
--- NOTE | 2025-03-05 13:31 | XR_ITS ---
The [address] [address] Patient Name: MARÍA SANTIAGO MRN: [id number] date: 1955 Sex: M Assigned Patient Location: [facility] Current Patient Location: [facility] Accession/Order Number: [id number] Exam Date: 03/05/2025 14:10 Report Date: 03/05/2025 16:33 At the request of: DINA HOU MD Procedure: XR chest 2V PA AND LATERAL CHEST: CLINICAL HISTORY: Preop exam COMPARISON: None FINDINGS: Unremarkable cardiomediastinal silhouette. Lungs clear. No effusion or pneumothorax. Degenerative changes of thoracic spine. XR/XR chest 2V IMPRESSION: NO ACUTE CARDIOPULMONARY ABNORMALITY. Impression dictated by: Deny Guadarrama M.D. 03/05/2025 4:33 PM Dictation Location: [place] [address] Electronically authenticated by: [id number] Y Date: 03/05/2025 16:33
--- OUTSIDE RECORDS SUMMARY | 2025-03-05 13:32 | XMS_ITS | Clinical Summary ---
Author Organization [facility] Address [address] [place] [address] Phone Care Team Providers Care Production Clerk Name Role Phone Moy Villa MD Primary Care Provider [phone] Allergies Active AllergyReactionsCriticalityNoted DateCommentsHydrocodone-Acetaminophen IstcidpGdx14/10/2024 Medications MedicationSigDispense QuantityRefillsLast FilledStart DateEnd DateStatus cholecalciferol (Vitamin D3) 50 MCG (1999 UT) tablet Take 1 tablet (50 mcg) by mouth once daily.Active celecoxib (CeleBREX) 100 mg capsule Take 1 capsule (100 mg) by mouth once daily.Active tamsulosin (Flomax) 0.4 mg 24 hr capsule Take 1 capsule (0.4 mg) by mouth once daily.Active pregabalin (Lyrica) 225 mg capsule Take 1 capsule (225 mg) by mouth 2 times a day.Active tadalafil (Cialis) 5 mg tablet Take 1 tablet (5 mg) by mouth once daily as needed for erectile dysfunction. Active DULoxetine (Cymbalta) [address] capsule Take 1 capsule (60 mg) by mouth once daily. Do not crush or chew.Active meloxicam (Mobic) 15 mg tablet Take 1 tablet (15 mg) by mouth once daily.Active atorvastatin (Lipitor) 20 mg tablet Take 1 tablet (20 mg) by mouth once daily at bedtime.Active FIBER-CAPS, PSYLLIUM HUSK, ORAL Take 1 capsule by mouth 2 times a day.Active melatonin 5 mg tablet,chewable Chew 5 mg once daily at bedtime.Active eszopiclone (Lunesta) 3 mg tablet Take 1 tablet (3 mg) by mouth once daily at bedtime. Take immediately before bedtimeActive cyclobenzaprine (Flexeril) 10 mg tablet Take 1 tablet (10 mg) by mouth if needed for muscle spasms.Active omega-3 acid ethyl esters (Lovaza) 1 gram capsule Take 1 capsule (1 g) by mouth 2 times a day.Active testosterone cypionate (Depo-Testosterone) 200 mg/mL injection Inject 1 mL (200 mg) into the muscle every 14 (fourteen) days.03/27/2023ctive magnesium 200 mg tablet Take 1 tablet (200 mg) by mouth early in the morning..Active aspirin 81 mg EC tablet Indications:ASHD (arteriosclerotic heart disease)Take 1 tablet (81 mg) by mouth once daily. 30 tablet 11006/04/66367906/04/2025ctive metoprolol succinate XL (Toprol-XL) 25 mg 24 hr tablet Indications:ASHD (arteriosclerotic heart disease)Take 0.5 tablets (12.5 mg) by mouth once daily. Do not crush or chew.ctive metoprolol succinate XL (Toprol-XL) 50 mg 24 hr tablet Take 1 tablet (50 mg) by mouth once daily. Do not crush or chew.02/04/2025 Discontinued(Dose adjustment) metoprolol succinate XL (Toprol-XL) 25 mg 24 hr tablet Indications:ASHD (arteriosclerotic heart disease)Take 1 tablet (25 mg) by mouth once daily. Do not crush or chew. 90 tablet Discontinued(Reorder) Active Problems ProblemNoted DateDiagnosed DateEssential rmkvcvzugluv47/25/2025 Assessment & Plan (02/05/2025 10:58 AM EDT): Asymptomatic hypotension noted in the office today, he reports this is unusual for him At time of stress test systolic blood pressure in the 100-110s Will reduce Toprol Assessment & Plan (06/04/2024 3:09 PM EST): Optimal in office BMI 31.0-31.9,adult06/04/2024 Assessment & Plan (02/05/2025 10:58 AM EDT): Reviewed the merits of healthy lifestyle choices on overall cardiovascular health. Assessment & Plan (06/04/2024 3:09 PM EST): Reviewed the merits of healthy lifestyle choices on overall cardiovascular health. Mixed laartvtbqzeidh53/10/2024 Assessment & Plan (02/05/2025 10:58 AM EDT): Moderate intensity statin January 2025 LDL 61, HDL 39 Assessment & Plan (06/04/2024 3:09 PM EST): Moderate intensity statin February 2024 LDL 59, HDL 39 History of percutaneous transluminal coronary jjndpuyovkl79/10/2024SHD (arteriosclerotic heart disease)04/19/2023 Assessment & Plan (02/05/2025 10:57 AM EDT): September 2010 no ACS admit pLAD PCI/stent March 2013 cardiac cath Proximal LAD patent stent with mild diffuse luminal regularities Circumflex luminal regularities RCA luminal regularities LVEF 65% March 2018 MPI no ischemia, no infarct. EF 69%. TID ratio 0.Jan MPI No ischemia/infarct EF 50% TID ratio 1.09 Assessment & Plan (06/04/2024 3:10 PM EST): September 2010 - no ACS admit pLAD PCI/stent March 2013 cardiac cath Proximal LAD patent stent with mild diffuse luminal regularities Circumflex luminal regularities RCA luminal regularities LVEF 65% March 2018 MPI no ischemia, no infarct. EF 69%. TID ratio 0.99 Former feoqod8404/19/2023 Encounters DateTypeDepartmentCare ShytOqvsopxcyni48/21/2025Telephone [address] [address] Faina Sebastian LPN 02/10/2025Refill [address] [place] [address] Faina Sebastian LPN ASHD (arteriosclerotic heart disease)02/04/2025 2:30 PM EDTOffice Visit [address] [place] [address] Ashvin Jc, INTERSTATE BUS DRIVER-AIR POLLUTION COMPLIANCE INSPECTOR ASHD (arteriosclerotic heart disease) (Primary Dx); Essential hypertension; Mixed hyperlipidemia; BMI 31.0-31.9,adult02/04/20250549Wysbsz64/15/2025Results Follow-Up [place] [address] [place] [address] Leann Renteria LPN Nuclear Stress Test01/20/2025 8:25 AM EDT - 01/20/2025 11:59 PM EDTHospital Encounter at [facility] [address] [place] [phone] Discharge Disposition: Home01/20/2025 8:25 AM EDT - 01/20/2025 11:59 PM EDT Hospital Encounter [facility] [address] [place] [phone] Discharge Disposition: Home01/20/2025 8:25 AM EDTHospital Encounter [facility] [address] [facility] [place] [address] Discharge Disposition: Home01/20/2025 8:24 AM EDTHospital Encounter [facility] [address] [facility] [place] [address] Discharge Disposition: Home01/20/2025 8:24 AM EDTHospital Encounter [facility] [address] [facility] [place] [address] ASHD (arteriosclerotic heart disease) Discharge Disposition: Home01/20/2025Scanned Document [facility] [address] [place] [address] Scanning, Generic Provider 01/20/20251744Umekbf11/24/2025Telephone [place] [address] [place] [address] Cyndi Younger, ONELIA from Last 3 Months Family History Medical HistoryRelationNameCommentsLung cancerFatherAAAMotherRelationNameStatus CommentsFatherMother Social History Tobacco UseTypesPacks/DayYears UsedDateSmoking Tobacco: FormerCigarettesQuit: 1990Smokeless Tobacco: NeverAlcohol UseStandard Drinks/WeekCommentsYes6 (1 standard drink = 0.6 oz pure alcohol)Sex and Gender InformationValueDate RecordedSex Assigned at BirthNot on fileLegal RahCwal45/26/2022 7:55 PM EST Gender IdentityNot on fileSexual OrientationNot on file Last Filed Vital Signs Vital SignReadingTime TakenCommentsBlood Mouurhbr62/6602/04/2025 2:38 PM EDT Quadv135802/04/2025 2:38 PM EDTTemperature--Respiratory Rate--Oxygen Saturation-- Inhaled Oxygen Concentration--Dtfrxs57.3 kg (210 lb)02/04/2025 2:38 PM EDTHeight 172.7 cm (5' 8 )02/04/2025 2:38 PM EDTBody Mass Index31.9302/04/2025 2:38 PM EDT Plan of Treatment DateTypeDepartmentCare Team (Latest Contact Info)Fqzoktndhdn23/25/2026 1:00 PM ESTOffice Visit [address] [address] Ashvin Jc, INTERSTATE BUS DRIVER-AIR POLLUTION COMPLIANCE INSPECTOR [address] [facility] 2, [address] [address] 10/01/2025 2:30 PM EDTOffice Visit [address] [address] Ashvin Jc, INTERSTATE BUS DRIVER-AIR POLLUTION COMPLIANCE INSPECTOR [address] [facility] 2, [facility] [address] [place] [address] Health MaintenanceDue DateLast DoneCommentsCT Shfduicxyixo11/10/1956FIT 1955Medicare Annual Wellness Visit (AWV)1955 7346Degdtxbfexmcb13/01/1956 MMR Vaccines (1 of 1 - Standard series)11/18/1955Diabetes Wwcggcbcs52/10/1973 Hepatitis C Noezyvksp69/10/1973RSV High Risk: (Elderly (60+) or Population) (1 - Risk 50-74 years 1-dose series)2004Zoster Vaccines (2 of 2)Abdominal Aortic Aneurysm (AAA) Doitziksu13/10/2020 Influenza Vaccine (#1)/09/2023, 01/26/2023, 01/15/2022, Additional history existsCOVID-19 Vaccine ( season)/11/2021, 07/17/2021, 07/10/2020, Additional history existsFIT-DNA (Cologuard)03/27/2025 2DTaP/Tdap/Td Vaccines (2 - Td or Tdap)Lipid Panel 5Colonoscopy, 3Colorectal Cancer Duggcycbp07/31/2033Pneumococcal FvzuabuTzrhprnza33/20/2023, 12/31/2016, 02/26/2015HIB VaccinesAged OutNo longer eligible based on patient's age to complete this topicHPV VaccinesAged OutNo longer eligible based on patient's age to complete this topicHepatitis A VaccinesAged OutNo longer eligible based on patient's age to complete this topicHepatitis B VaccinesAged OutNo longer eligible based on patient's age to complete this topicIPV VaccinesAged OutNo longer eligible based on patient's age to complete this topicMeningococcal VaccineAged OutNo longer eligible based on patient's age to complete this topic Rotavirus VaccinesAged OutNo longer eligible based on patient's age to complete this topic Procedures Procedure NamePriorityDate/TimeAssociated DiagnosisCommentsSTRESS TEST, REGADENOSON W MYOCARDIAL PERFUSION SPECT (MULTI STUDY)Glwaegk3701/20/2025 10:52 AM EDT ASHD (arteriosclerotic heart disease) from Last 3 Months Results * STRESS TEST, REGADENOSON W MYOCARDIAL PERFUSION SPECT (MULTI STUDY) (01/20/2025 10:52 AM EDT)Anatomical RegionLateralityModalityNuclear Medicine Specimen (Source)Anatomical Location / LateralityCollection Method / Volume Collection TimeReceived Time01/21/2025 5:11 PM EDT1 5:11 PM EDT Impressions 01/21/2025 5:10 PM EDT Normal Lexiscan Myoview cardiac perfusion stress test. No evidence of ischemia or myocardial infarction by perfusion imaging. Normal left ventricular systolic function, ejection fraction 50%. No previous study available for comparison. ? Signed by: Kris Tate 01/21/2025 5:10 PM Dictation workstation: ?? [id number] Narrative 01/21/2025 5:10 PM EDT Interpreted By: Kris Tate and Giannuzzi Michael STUDY: MYOCARDIAL PERFUSION STRESS TEST WITH LEXISCAN ?? Performing facility: [facility], [address] [place] [address], [address], [place] [id number] [facility] Provider: ??Ashvin Jc RN, AIR POLLUTION COMPLIANCE INSPECTOR PCP: ??Dr. Kun Villa Supervising provider: ??[facility] ?? INDICATION: Signs/Symptoms:chest pain. ?? ,I25.10 Atherosclerotic heart disease of [place] coronary artery without angina pectoris ?? HISTORY: Gender: ??M; Age: ??69 y/o ; Height: ??HT 172.7 cm cm; Weight: ?? WT 95.981 kg kg. ?? High Cholesterol; ??CAD; ??HTN; ??Fatigue; Quit smoking 35 years ago. ?? Cardiac catheterization on 2012. ??PTCA on 2010. ?? COMPARISON: Previous nuclear testing completed [id number] at [facility]. ? ACCESSION NUMBER(S): [id number] ?? ORDERING CLINICIAN: ASHVIN JC ?? TECHNIQUE: ONE DAY protocol. Stress injection: Date:01-20-25, 32.8 mCi of Myoview IV 20 seconds after rapid injection of Lexiscan. Rest injection: Date: 01-20-25, 10.5 mCi of Myoview IV at rest. The patient had a rapid injection of 0.4 mg of Lexiscan IV over 10 seconds. Imaging was performed by gated tomographic technique. Reason for Lexiscan: ??DJD ?? STRESS TEST DATA: Resting heart rate was 71 BPM. Resting blood pressure was 120/76 mmHg. Peak blood pressure was 116/62 mmHg. Peak heart rate was 82 BPM. ?? TEST TERMINATED DUE TO: ??Protocol completed ?? FINDINGS: STRESS TEST RESULTS: ?? Resting electrocardiogram revealed normal sinus rhythm. There were no significant ischemic ECG changes or dysrhythmias. The patient did not have chest pains/symptoms during procedure. There was a normal recovery phase. ?? IMAGING RESULTS: ?? Image quality was good. Rest and stress tomographic images were reviewed and revealed normal perfusion without evidence of ischemia, myocardial infarction, or left ventricular dilatation with stress. Overall left ventricular systolic function appeared to be normal without regional wall motion abnormalities. Ejection fraction was 58%. TID is 1.09 and is normal. There were no evidence of ??attenuation artifact. ?? Procedure Note Kris Tate MD - 01/21/2025 Interpreted By: Kris Tate and Giannuzzi Michael STUDY: MYOCARDIAL PERFUSION STRESS TEST WITH LEXISCAN Performing facility: [facility], [address] [place] [address], [address], [address] Provider: Ashvin Jc RN, AIR POLLUTION COMPLIANCE INSPECTOR PCP: Dr. Kun Villa Supervising provider: Nhung Rader MD, [facility] INDICATION: Signs/Symptoms:chest pain. ,I25.10 Atherosclerotic heart disease of [place] coronary artery without angina pectoris HISTORY: Gender: M; Age: 69 y/o ; Height: HT 172.7 cm cm; Weight: WT 95.981 kg kg. High Cholesterol; CAD; HTN; Fatigue; Quit smoking 35 years ago. Cardiac catheterization on 2012. PTCA on 2010. COMPARISON: Previous nuclear testing completed [id number] at [facility]. ACCESSION NUMBER(S): [id number] ORDERING CLINICIAN: ASHVIN JC TECHNIQUE: ONE DAY protocol. Stress injection: Date:01-20-25, 32.8 mCi of Myoview IV 20 seconds after rapid injection of Lexiscan. Rest injection: Date: 01-20-25, 10.5 mCi of Myoview IV at rest. The patient had a rapid injection of 0.4 mg of Lexiscan IV over 10 seconds. Imaging was performed by gated tomographic technique. Reason for Lexiscan: DJD STRESS TEST DATA: Resting heart rate was 71 BPM. Resting blood pressure was 120/76 mmHg. Peak blood pressure was 116/62 mmHg. Peak heart rate was 82 BPM. TEST TERMINATED DUE TO: Protocol completed FINDINGS: STRESS TEST RESULTS: Resting electrocardiogram revealed normal sinus rhythm. There were no significant ischemic ECG changes or dysrhythmias. The patient did not have chest pains/symptoms during procedure. There was a normal recovery phase. IMAGING RESULTS: Image quality was good. Rest and stress tomographic images were reviewed and revealed normal perfusion without evidence of ischemia, myocardial infarction, or left ventricular dilatation with stress. Overall left ventricular systolic function appeared to be normal without regional wall motion abnormalities. Ejection fraction was 58%. TID is 1.09 and is normal. There were no evidence of attenuation artifact. IMPRESSION: Normal Lexiscan Myoview cardiac perfusion stress test. No evidence of ischemia or myocardial infarction by perfusion imaging. Normal left ventricular systolic function, ejection fraction 50%. No previous study available for comparison. Signed by: Kris Tate 01/21/2025 5:10 PM Dictation workstation: [id number] Authorizing ProviderResult TypeResult Seema Jc INTERSTATE BUS DRIVER-CNPCV STRESS PROCEDURESFinal Result from Last 3 Months Insurance MemberSubscriberPlan / Payer (Effective 2021-Present)Name:Rob Hernandez Relation to Subscriber:SelfName:MaryRob Taylor Payer ID:Not on file Type:Not on file Address: [facility] [address] [place] [id number] Care Teams Team MemberRelationshipSpecialtyStart DateEnd Moy Villa MD [address] [place] [address] [facility] - [facility] Gxdmlpnj04/27/23
--- OUTSIDE RECORDS SUMMARY | 2025-03-05 13:32 | XMS_ITS | Clinical Summary ---
Author Organization [facility] Address [address] [place] [address] Care Team Providers Care Dental Hygiene Instructor Name Role Phone Moy Villa MD Primary Care Provider [phone] Moy Villa MD Unavailable [phone] Coral Ceballos DATA NETWORK ARCHITECT Unavailable [phone] Radha Weiner RN Unavailable [phone] Allergies Active AllergyReactionsCriticalityNoted DateCommentsAcetaminophenUnknown 05/04/2021 Other Reaction(s): Itching TjoqedvkcraHwoxjno26/20/2023Hydrocodone-AnqmjncjwsjrfYlypabyCmq63/10/2024 Medications MedicationSigDispense QuantityRefillsLast FilledStart DateEnd DateStatus metoprolol succinate XL (Toprol-XL) 25 MG 24 hr tablet Indications:Essential hypertensionTake 1 tablet (25 mg) by mouth Daily 90 tablet 5Active atorvastatin (Lipitor) 20 MG tablet Indications:Pure hypercholesterolemiaTake 1 tablet (20 mg) by mouth Daily 90 tablet 6Active pregabalin (Lyrica) 200 MG capsule Indications:Lumbar radiculopathyTake 1 capsule (200 mg) by mouth every 12 (twelve) hours 180 capsule 5Active acetaminophen (Tylenol) 500 MG tablet Take 1,000 mg by mouth every 8 (eight) hours if rhgouy7303/04/2024ctive celecoxib (CeleBREX) 100 MG capsule Take 100 mg by mouth in the morning.Active chlorhexidine (Peridex) 0.12 % solution 5Active cbgcefqv-npmxpolju-ijyHATVGfsimo (Polydex) 3.5-26846-4.1 ointment ophthalmic ointment 5Active tamsulosin (Flomax) 0.4 MG 24 hr capsule Take 0.4 mg by mouth6Active erythromycin (Romycin) 5 MG/GM ophthalmic ointment 5Active testosterone cypionate (Depo-Testosterone) 200 MG/ML injection Indications:Low libidoInject 1 mL (200 mg) into the shoulder, thigh, or buttocks every 14 (fourteen) days 2 mL 6Active DULoxetine (Cymbalta) [address] capsule Indications:Major depressive disorder with single episode, in partial remission Take 1 capsule (30 mg) by mouth in the morning and 1 capsule (30 mg) before bedtime. Do not crush or chew. 180 capsule 6Active eszopiclone (Lunesta) 3 MG tablet Indications:Primary insomniaTake 1 tablet (3 mg) by mouth at bedtime 90 tablet ctive Needle, Disp, (B-D DISP NEEDLE 25GX1 ) 25G X 1 misc Indications:Low testosterone level in maleInject 1 Needle into the shoulder, thigh, or buttocks every 14 (fourteen) days 9 each tive cyclobenzaprine (Flexeril) 10 MG tablet Indications:Lumbar radiculopathyTake 1 tablet (10 mg) by mouth at bedtime for 20 days 20 tablet Discontinued(Therapy completed) DULoxetine (Cymbalta) [address] capsule Indications:Major depressive disorder with single episode, in partial remission Take 1 capsule (30 mg) by mouth in the morning and 1 capsule (30 mg) before bedtime. Do not crush or chew. 180 capsule Discontinued(Reorder) eszopiclone (Lunesta) 3 MG tablet Indications:Primary insomniaTake 1 tablet (3 mg) by mouth at bedtime 90 tablet Discontinued(Reorder) Needle, Disp, (B-D DISP NEEDLE 25GX1 ) 25G X 1 misc Indications:Low testosterone level in maleInject 1 Needle into the shoulder, thigh, or buttocks every 30 (thirty) days 9 each Discontinued(Dose adjustment) testosterone cypionate (Depo-Testosterone) 200 MG/ML injection Indications:Low libidoInject 1 mL (200 mg) into the shoulder, thigh, or buttocks every 14 (fourteen) days 2 mL Discontinued(Reorder) Cipro 500 MG tablet Take 500 mg by mouthDiscontinued(Therapy completed) testosterone cypionate (Depo-Testosterone) 200 MG/ML injection Indications:Low libidoInject 1 mL (200 mg) into the shoulder, thigh, or buttocks every 14 (fourteen) days 2 mL Discontinued(Reorder)Hospital, Clinic, or Other Facility Administered MedicationOrdered DoseRouteFrequencyStart DateEnd DateStatus betamethasone acetate-betamethasone sodium phosphate (Celestone) injection 0.5 mL Indications:Trigger middle finger of left hand.5 mLIXOnce PRN Procedure Ended Active Problems ProblemNoted DateDiagnosed DateElevated PSA02/05/20255717Rcyykcxlsbl13/29/2025 Incomplete bladder /25/2025Male sevunakfevzm38/25/2025PH with obstruction/lower urinary tract /08/2024Engages in binge consumption of tqymgah6502/16/2024S/P PTCA (percutaneous transluminal coronary angioplasty) 02/16/2024MI 31.0-31.9,adult02/16/2024elayed ucycevabhud84/26/2024eyronie's cbwmtic4611/03/2023Sacroiliac joint dysfunction of right side08/21/2023History of percutaneous transluminal coronary muqvazyirmc97/10/2024Mixed hyperlipidemia 04/19/2023Former hkxgzj8011/01/2022rteriosclerosis of coronary indshm3910/27/2022 Lower back pain10/27/2022Sleep apnea10/27/2022Lumbar iwnookoihktku00/20/2021 Assessment & Plan (08/13/2024 9:34 AM EDT): Patient did report some flare-up for pain but of her all pain meds well refills sent Orders: pregabalin (Lyrica) 200 MG capsule; Take 1 capsule (200 mg) by mouth every 12 (twelve) hours Mcwlgtc41/17/2021rolapsed internal rogmavffeub96/03/2021lcohol abuse09/21/2020 Chronic pain04/29/2020ower urinary tract symptoms due to benign prostatic kbfmeghvkbj46/15/2020 Assessment & Plan (08/13/2024 9:34 AM EDT): - Due for blood work for PSA and testosterone. - Blood work for PSA and testosterone to be conducted when due. Labs were sent to [facility]. Organic erectile hpxfwmvcivy32/16/2019 Assessment & Plan (08/13/2024 9:34 AM EDT): Patient reports needing a note from his PCP Dr. Villa regarding the medical necessity of his recent urologic procedure for implantation of penis prosthesis pump Primary aunxpirrwvbjja24/11/0873Rfpiyaawbvzzca86/22/2019Artificial knee joint grhtylv7705/08/2018Essential putqnmtibusk16/15/2018 Assessment & Plan (08/13/2024 9:34 AM EDT): - BP well controlled in office today. Continue current med regimen. Orders: metoprolol succinate XL (Toprol-XL) 25 MG 24 hr tablet; Take 1 tablet (25 mg) by mouth Daily Vitamin D /15/2018Atherosclerosis of coronary artery without angina adxlkkri48/16/2018Pure yivhwlgkufzwqyxckyoe99/16/2018 Assessment & Plan (08/13/2024 9:34 AM EDT): Orders: atorvastatin (Lipitor) 20 MG tablet; Take 1 tablet (20 mg) by mouth Daily Generalized anxiety cxkwiuik71/15/2018BMI 32.0-32.9,adult12/13/2016Fatigue 02/12/2008 Resolved Problems ProblemNoted DateDiagnosed DateResolved DateAsymptomatic microscopic hematuria Screening PSA (prostate specific antigen)11/01/2024 11/01/2024Stage 3 chronic kidney scucpjq66Major depression, single Encounters DateTypeDepartmentCare DguuMcjrtknwhqd80/26/2025Patient Outreach [facility] [address] [place] [address] Radha Weiner, YING 03/04/2025Refill formerly [facility] [address] [place] [address] Coral Ceballos NP Primary joiijiht91/19/2025Orders Only formerly [facility] [address] [place] [address] Coral Ceballos NP 02/26/2025Telephone formerly [facility] [address] [place] [address] Coral Ceballos NP lab icyfryaa69/19/2025Telephone formerly [facility] [address] [place] [address] Stella Child MA 02/25/2025 1:20 PM ESTOffice Visit formerly [facility] [address] [place] [address] Coral Ceballos, DATA NETWORK ARCHITECT Routine general medical examination at health care facility (Primary Dx); Low libido; Major depressive disorder with single episode, in partial remission; Primary insomnia; Medicare annual wellness visit, subsequent; BMI 31.0-31.9,adult02/25/20250959Jiatcu39/18/2025[facility] [address] [place] [address] Radha Weiner, YIGN 02/24/2025Refill formerly [facility] [address] [place] [address] Coral Ceballos NP Low vrqaij5802/20/2025bstract [facility] [address] [place] [address] Moy Villa MD 02/18/2025 10:30 AM ESTOffice Visit [facility] [address] [place] [address] Tevin Lake, DO Pain in both knees, unspecified chronicity (Primary Dx); Trigger middle finger of left hand02/18/2025 8:30 AM ESTAncillary Procedure [facility] [address] [place] [address] 02/18/2025 8:25 AM ESTAncillary Procedure [facility] [address] [place] [address] 02/18/20251523Mswcjp72/05/2025Telephone formerly [facility] [address] [place] [address] [phone] Coral Ceballos NP Form that needs tigydx6502/12/2025Patient Outreach [facility] [address] [place] [address] Radha Weiner RN 02/05/2025bstract formerly [facility] [address] [place] [address] Moy Villa MD 02/05/2025Patient Outreach [facility] [address] [place] [address] Radha Weiner, YING 01/29/2025Results Follow-Up formerly [facility] [address] [place] [address] Coral Ceballos NP CBC auto differential, Magnesium, TSH, Additional followed-up results: 6 01/27/2025 3:00 PM EDTFollow-Up formerly [facility] [address] [place] [address] Coral Ceballos NP Right hip pain (Primary Dx); Low testosterone level in male; Low libido; Left hip pain; Elevated PSA; Left hand pain01/27/20250370Cnwchr36/17/2025Refill formerly [facility] [address] [place] [address] Christian Angulo, DO Benign prostatic hyperplasia without lower urinary tract /13/2025 Results Follow-Up formerly [facility] [address] [place] [address] Coral Ceballos NP PSA SCREEN (YEARLY) W/REFLEX ([facility])01/02/2025Patient Outreach [facility] [address] [place] [address] Radha Weiner, RN 12/16/2024 3:20 PM EDTOffice Visit formerly [facility] [address] [place] [address] Coral Ceballos NP Left hand weakness (Primary Dx); Alcohol abuse; Left hand pain; Screening for prostate nvigpj9212/16/2024amboo flowsheet formerly [facility] [address] [place] [address] Coral Ceballos NP 12/16/20247821Ytfkgr03/27/2025Patient Outreach [facility] [address] [place] [address] Radha [place], RN 12/04/2024Refill formerly [facility] [address] [place] [address] Christian Angulo, DO Primary tsjtcyeu65/27/2025Refill formerly [facility] [address] [place] [address] Christian Angulo DO Primary uchkdvrg87/26/2025[facility] [address] [place] [address] Victoria Longoria LPN Primary insomnia; Pure hypercholesterolemia ; Lumbar radiculopathy; Major depressive disorder with single episode, in partial remission ; Low libidofrom Last 3 Months Immunizations ImmunizationAdministration DatesNext DueInfluenza, High Dose Seasonal, Preservative Free01/06/2020Influenza, High-dose Seasonal, Quadrivalent, Preservative Free01/15/2022,03/02/2021,12/30/2019Influenza, Seasonal, Quadrivalent, Nivbfgyqze85/19/2023Influenza, injectable, MDCK, preservative free, nqmtikwgufhz52/08/2018Influenza, injectable, quadrivalent, preservative free01/03/2019,01/08/2018,12/31/2016Influenza, recombinant, quadrivalent, injectable, preservative free01/19/2018Influenza, seasonal, intradermal, preservative free02/17/2016,02/26/2015Influenza, trivalent, /06/2024 Moderna Bivalent Booster Sybeddgzjcb54/08/2022neumococcal Conjugate PCV 13 12/31/2016,02/26/2015Pneumococcal Polysaccharide [id number] (COVID-19) vaccine, mRNA, spike protein, LNP, bivalent, preservative free, 30 mcg/0.3 mLdose, kennedy-sucrose otcufnmqigt09/08/8984Drvs31/11/2019Zoster, Wnaawrgyzyw30/10/2019 Family History Medical HistoryRelationNameCommentsArthritisBrother 2WilliamMental illness Brother 3MickeyCancerFatherRichard OwenDepressionMotherGrace WilhelminaHearing lossMotherGrace WilhelminaBreast cancerNeg HxColon cancerNeg HxOvarian cancerNeg HxRelationNameStatusCommentsBrother 8x0Cecmdch 2WilliamAliveBrother 3MickeyAlive FatherRob OwenAliveMotherGrrebeca WilhelminaAliveSisterx4 Social History Tobacco UseTypesPacks/DayYears UsedDateSmoking Tobacco: FormerCigarettesQuit: 1993Smokeless Tobacco: Never Tobacco Cessation:Counseling Given: Not Answered Alcohol UseStandard Drinks/WeekCommentsYes6 (1 standard drink = 0.6 oz pure alcohol)caffeine intake: 2-3 cups per day of [id number] Health LiteracyAnswer Date RecordedHow often do you [...] times a week11/01/2024How often do you attend pentecostalism or mosque services?Never11/01/2024Do you belong to any clubs or organizations such as pentecostalism groups, unions, fraternal or athletic groups, or [...] have six or more drinks on one occasion?Hludwy8508/13/2024Overall Financial Resource Strain (CARDIA)AnswerDate RecordedHow hard is it for you to pay for the very basics like food, housing, medical care, and heating?Not hard at all 04/09/2024HQ-2AnswerDate RecordedPatient Health Questionnaire-2 Score0 02/25/2025[facility] [place] [facility] - Occupational Stress QuestionnaireAnswerDate RecordedDo you feel stress - tense, restless, nervous, or anxious, or unable to sleep at night because yourmind is troubled all the time - these days?Only a rrkggt2004/09/2024Exercise Vital SignAnswerDate Recorded On average, how many [...] steady place to sleep or slept in [facility] (including now)?No10/20/2022Housing Stability Vital SignAnswerDate RecordedIn the last 12 months, was there a time when you were not able to pay the mortgage or rent on time?No11/01/2024In the past 12 months, how many times have you moved where you were living? At any time in the past 12 months, were you homeless or living in a alf (including now)?No11/01/2024Sex and Gender InformationValueDate RecordedSex Assigned at BirthNot on fileLegal VfvXvfq2906/22/2022 7:05 PM EDTGender Identity Not on fileSexual UzmjewsvuydVlwcntvk53/24/2023 8:33 PM EDTOccupationIndustryJob Start DateJob End DateRetiredNot on fileNot on fileNot on file Last Filed Vital Signs Vital SignReadingTime TakenCommentsBlood Rmextvjs246/7002/25/2025 1:21 PM EST Pxssf141102/25/2025 1:21 PM KTSKtpjddhqqnf75.3 ??C (97.3 ??F)02/25/2025 1:21 PM ESTRespiratory Yszw993704/27/2024 1:21 PM ESTOxygen Khuiovapca53%02/25/2025 1:21 PM ESTInhaled Oxygen Concentration--Qbxcsj64.4 kg (206 lb)02/25/2025 1:21 PM EST Splbff685.7 cm (5' 8 )02/25/2025 1:21 PM ESTBody Mass Index31.32104/27/2024 1:21 PM EST Plan of Treatment DateTypeDepartmentCare Team (Latest Contact Info)Nfztbacwwzp86/18/2026 10:00 AM ESTOffice Visit [facility] [address] [place] [address] Moy Villa MD [address] [place] [address] Health MaintenanceDue DateLast DoneCommentsCT Zmmcimuyqpzc98/10/1955FIT 1954FOBT1954 4778Wflramtpetael59/10/1955FIT-DNA5105/28/2021, 03/27/2022, 03/21/2019, Additional history existsInfluenza Vaccine (#1) 6104/15/2023, 01/26/2023, 01/15/2022, Additional history existsPostponed from 12/09/2024 (Patient Refused)Medicare Annual Wellness (AWV)02/25/2026 02/25/2025, 02/25/2025, 02/14/2024, Additional history existsColonoscopy 3Colorectal Cancer Gosstbsyr65/31/2033COVID-19 Vaccine Efedatfqbhao91/08/2022, 07/17/2021, 01/13/2021, Additional history exists Pneumococcal Vaccine: 65+ QlkduBonvejnjq11/20/2023, 12/31/2016, 02/26/2015 Procedures Procedure NamePriorityDate/TimeAssociated DiagnosisCommentsCBC (INCLUDES DIFF/PLT)Jodnmyl4902/26/2025 11:30 AM ESTPSA, TOTAL AND JXVCKtrztun30/19/2025 11:30 AM ESTPR ARTHROCENTESIS ASPIR&/INJ SMALL JT/BURSA W/O FEUyvynyv24/11/2025 11:06 AM EST Trigger middle finger of left hand XR LUMBAR SPINE 2-3 ZAWGOIhuycpy79/11/2025 8:21 AM EST Pain in both knees, unspecified chronicity XR HIPS BILATERAL 2 VW WITH OR WITHOUT CRZPDAOyxnbuk19/11/2025 8:21 AM EST Pain in both knees, unspecified chronicity PSA SCREEN (YEARLY) W/REFLEX ([facility])Eywbmli4101/20/2025 8:03 AM EDT Screening for prostate cancer MALCOLM SCREEN W/WWGDDILlghtjh92/13/2025 8:03 AM EDT Left hand weakness Left hand pain RHEUMATOID PXYHYQNwdrulo67/13/2025 8:03 AM EDT Left hand weakness Left hand pain TESTOSTERONE FREE AND VLNWDCxwaunp28/13/2025 8:03 AM EDT Low libido COMPREHENSIVE METABOLIC DMNVVElcospo53/13/2025 8:03 AM EDT Peripheral vascular disease, unspecified IRON AND TOTAL IRON BINDING ZPENUAATCqaukrj80/13/2025 8:03 AM EDT Peripheral vascular disease, unspecified LIPID JPUUNXnceoob41/13/2025 8:03 AM EDT Pure hypercholesterolemia VITAMIN D 25 HYDROXY TBDAXAsdeevs85/13/2025 8:03 AM EDT Vitamin D deficiency URIC AVWGFnfxoic00/13/2025 8:03 AM EDT Lumbar radiculopathy IFNRknoiah96/13/2025 8:03 AM EDT Essential hypertension JDVLVYZNGXkkzqhk90/13/2025 8:03 AM EDT Routine general medical examination at health care facility Essential hypertension CBC WITH AUTO BQJHQWYOHPJDSgktidw06/13/2025 8:03 AM EDT Adult general medical examination HNJCBCMLKQQPwscxmu58/31/2023 12:00 PM EST LAB COLOGUARD?? COLON CANCER MNWRHEZttodic89/18/2022 from Last 3 Months or Most Recently Relevant to Health Maintenance Results * CBC and differential (02/26/2025 11:30 AM EST)Specimen (Source)Anatomical Location / LateralityCollection Method / VolumeCollection TimeReceived Time BloodVenous blood specimen / Unknown Narrative Authorizing ProviderResult TypeResult StatusJeingrid Ceballos NPLAB BLOOD ORDERABLESFinal Result * PSA, total and free (02/26/2025 11:30 AM EST)Specimen (Source)Anatomical Location / LateralityCollection Method / VolumeCollection TimeReceived Time BloodVenous blood specimen / Unknown Narrative Authorizing ProviderResult TypeResult StatusCoral Ceballos NPLAB BLOOD ORDERABLESFinal Result * IA ARTHROCENTESIS ASPIR&/INJ SMALL JT/BURSA W/O US (02/18/2025 11:06 AM EST) Narrative Gladys Mix, ARRT - 02/18/2025 11:06 AM EST Gladys MixJENNIE 02/19/2025 4:52 PM S Inj/Asp: L long MCP on 02/18/2025 11:06 AM Indications: pain Details: 25 G needle Medications: 0.5 mL betamethasone acetate-betamethasone sodium phosphate 6 (3-3) MG/ML Consent was given by the patient. Authorizing ProviderResult TypeResult Chris [facility]/BEDSIDE ORDERABLESFinal Result * XR lumbar spine 2 or 3 views (02/18/2025 8:21 AM EST)Anatomical Region LateralityModalitySpine, L-spineRadiographic ImagingSpecimen (Source) Anatomical Location / LateralityCollection Method / VolumeCollection Time Received Time Narrative 02/19/2025 4:50 PM EST Imaging Result: 3 views lumbar spine, AP/lateral/L5-S1, taken today and saved to the permanent medical record. Mild scoliosis. ??Large bridging osteophytes anteriorly between L5 and S1 which has progressed compared to his previous radiographs. ??To space narrowing at all levels with endplate osteophytes at all levels. ??Severe facet joint arthritis at L3, L4, L5. Authorizing ProviderResult TypeResult Chris LUNDY XR PROCEDURES Final Result * XR hips bilateral 2 views (02/18/2025 8:21 AM EST)Anatomical RegionLaterality ModalityLower Extremities, HipBilateralRadiographic ImagingSpecimen (Source) Anatomical Location / LateralityCollection Method / VolumeCollection Time Received Time Narrative 02/19/2025 4:51 PM EST Imaging Result: AP pelvis, lateral bilateral hip(s) taken today and saved to the permanent medical record. Joint spaces at the hips are well-preserved. ??No avascular changes. ??No cam lesions. Authorizing ProviderResult TypeResult StatusJason A Brown DOIMG XR PROCEDURES Final Result * (ABNORMAL) PSA SCREEN (YEARLY) W/REFLEX ([facility]) (01/20/2025 8:03 AM EDT) ComponentValueRef RangeTest MethodAnalysis TimePerformed AtPathologist SignaturePSA SCREEN (YEARLY) W/GJGZTA57.960(H)0.000 - 4.000 ng/mL01/20/2025 1:02 PM [facility] CtrComment: Serial tumor marker results determined by assays using different manufacturers or methods may not be comparable. [facility] technology sales representative and method: [employer] DXI, CHEMILUMINESCENT IMMUNOASSAY. Specimen (Source)Anatomical Location / LateralityCollection Method / Volume Collection TimeReceived TimeOtherTopography unknown / Kxnfdkj7501/20/2025 8:03 AM EDT1 8:03 AM EDT Narrative Authorizing ProviderResult TypeResult StatusJessjerry Ceballos NPLAB BLOOD ORDERABLESFinal ResultPerforming OrganizationAddressCity/State/ZIP CodePhone Number [facility] [address] [place] [address], [facility] [address] [place] [address] * (ABNORMAL) CBC auto differential (01/20/2025 8:03 AM EDT)ComponentValueRef RangeTest MethodAnalysis TimePerformed AtPathologist OmoedeafcJIR01.1(H)4.1 - 10.5 [CFU]/mL01/20/2025 12:03 PM [facility] CtrUNCORRECTED WHITE BLOOD COUNT14.1(H)4.1 - 10.5 10*3/uL01/20/2025 12:03 PM [facility] CtrRBC5.093.90 - 5.60 10*6/uL01/20/2025 12:03 PM [facility] BzaKUNLLAVBDS98.113.0 - 17.0 g/dL01/20/2025 12:03 PM EDT [facility] CifMGIMFFVXSZ04.238.8 - 50.0 %01/20/2025 12:03 PM [facility] UlkCLA84.0(L)83.5 - 101 fL01/20/2025 12:03 PM [facility] BoxQPE36.7(L)27.5 - 35.2 pg10/ 12:03 PM [facility] VifHVGF66.532.5 - 35.6 g/dL01/20/2025 12:03 PM [facility] CtrRED CELL DISTRIBUTION WIDTH, RDW19.5(H)12.0 - 14.8 %01/20/2025 12:03 PM [facility] CtrPLATELET HREYE920 150 - 450 10*3/uL01/20/2025 12:03 PM [facility] CtrMEAN PLATELET VOLUME, MPV8.16.6 - 10.1 fL01/20/2025 12:03 PM [facility] CtrNEUTROPHILS, %74.2. %01/20/2025 12:03 PM [facility] CtrLYMPHOCYTES, %15.9. %01/20/2025 12:03 PM [facility] CtrMONOCYTE/MACROPHAGE, %9.0. %01/20/2025 12:03 PM [facility] CtrEOSINOPHILS, %0.6. %01/20/2025 12:03 PM [facility] CtrBASOPHILS, %0.3. %01/20/2025 12:03 PM [facility] CtrNRBC0.00 - 0.5 /100{WBC}01/20/2025 12:03 PM [facility] HjiYPQZYWOENRO47.5(H)1.8 - 7.7 10*3/uL01/20/2025 12:03 PM [facility] CtrLYMPHOCYTES2.31.00 - 4.8 10*3/uL01/20/2025 12:03 PM [facility] CtrMONOCYTES1.3(H)0.0 - 0.8 10*3/uL 01/20/2025 12:03 PM [facility] CtrEOSINOPHILS0.10.0 - 0.45 10*3/uL01/20/2025 12:03 PM [facility] CtrBASOPHILS0.00.0 - 0.2 10*3/uL01/20/2025 12:03 PM [facility] CtrSpecimen (Source)Anatomical Location / LateralityCollection Method / VolumeCollection TimeReceived TimeBlood (Blood)01/20/2025 8:03 AM EDT1 8:03 AM EDT Narrative Authorizing ProviderResult TypeResult StatusMoy GARCÍA BLOOD ORDERABLESFinal ResultPerforming OrganizationAddressCity/State/ZIP CodePhone Number [facility] [address] [place] [address], [facility] [address] [place] [address] * (ABNORMAL) Iron and TIBC (01/20/2025 8:03 AM EDT)ComponentValueRef RangeTest MethodAnalysis TimePerformed AtPathologist CdtwmyhckKUUV18(L)50 - 212 ug/dL 01/20/2025 12:21 PM [facility] CtrTOTAL IRON BINDING OMRXGVCS060332 - 450 ug/dL01/20/2025 12:21 PM [facility]% IRON SATURATION5.1(L)20 - 50 %01/20/2025 12:21 PM [facility] VlvTJPAVXVFYXZ963542 - 362 mg/dL01/20/2025 12:21 PM [facility] CtrSpecimen (Source)Anatomical Location / Laterality Collection Method / VolumeCollection TimeReceived TimeOtherTopography unknown / Qzbhkcx3601/20/2025 8:03 AM EDT1 8:03 AM EDT Narrative Authorizing ProviderResult TypeResult StatusMoy GARCÍA BLOOD ORDERABLESFinal ResultPerforming OrganizationAddressCity/State/ZIP CodePhone Number [facility] [address] [place] [address], [facility] [address] [place] [address] * Vitamin D 25 hydroxy Total (01/20/2025 8:03 AM EDT)ComponentValueRef RangeTest MethodAnalysis TimePerformed AtPathologist SignatureVITAMIN D 25 HYDROXY TOTAL87.330 - 100 ng/mL01/20/2025 12:48 PM [facility] Comment: VITAMIN D STATUS ?? 25(OH)VITAMIN D RANGE (ng/mL) Deficient <20 Insufficient 20 to <30 Sufficient ? 30 to 100 Reference: Chester MF,Speedy [place], Noemy AMAYA, et al. Evaluation,treatment, and prevention of vitamin D deficiency; an Endocrine Society clinical practice guideline. JCEM. 2010; 96(7):1911-30. Specimen (Source)Anatomical Location / LateralityCollection Method / Volume Collection TimeReceived TimeOtherTopography unknown / Pbclysg5401/20/2025 8:03 AM EDT1 8:03 AM EDT Narrative Authorizing ProviderResult TypeResult StatusMoy Villa [facility] BLOOD ORDERABLESFinal ResultPerforming OrganizationAddressty/[facility]/RUST CodePhone Number [facility] [address] [place] [address], [place] [address] * Rheumatoid factor (01/20/2025 8:03 AM EDT)ComponentValueRef RangeTest Method Analysis TimePerformed AtPathologist SignatureRHEUMATOID ROCHRZ78.0<14.0 01/21/2025 3:36 AM EDTFIRELANDSComment: Performed at: ??[facility] - [facility] [address] ??[id number] Talent Scout: Sergio Fox PhD, Phone: ??[phone] Specimen (Source)Anatomical Location / LateralityCollection Method / Volume Collection TimeReceived TimeOtherTopography unknown / Dhmemyc6501/20/2025 8:03 AM EDT1 8:03 AM EDT Narrative Authorizing ProviderResult TypeResult StatusCoral Ceballos [facility] BLOOD ORDERABLESFinal ResultPerforming OrganizationAddressWhite Hospital/[facility]/ZIP CodePhone Number [address] * Testosterone, free, total (01/20/2025 8:03 AM EDT)ComponentValueRef RangeTest MethodAnalysis TimePerformed AtPathologist SignatureTESTOSTERONE,401920 - 916 ng/dL01/22/2025 3:07 AM EDTFIRELANDSComment: Adult male reference interval is based on a population of healthy nonobese males (BMI <30) between 19 and 39 years old. Haley et.al. JCEM 2017,102;8036-4946. PMID: [id number]. TESTOSTERONE,FREE3.06.6 - 18.1 pg/mL01/22/2025 3:07 AM EDTFIRELANDSComment: Performed at: ??[facility] ??[id number] Talent Scout: Sergio oFx PhD, Phone: ??[phone] Performed at: ??[facility] ??[id number] Talent Scout: Siddhartha Lomeli MD, Phone: ??[phone] Specimen (Source)Anatomical Location / LateralityCollection Method / Volume Collection TimeReceived TimeOtherTopography unknown / Gthxmob5201/20/2025 8:03 AM EDT1 8:03 AM EDT Narrative Authorizing ProviderResult TypeResult StatusMoy Villa [facility] BLOOD ORDERABLESFinal ResultPerforming OrganizationAddressCity/State/RUST CodePhone Number [address] [address], * [place] (01/20/2025 8:03 AM EDT)ComponentValueRef RangeTest MethodAnalysis Time Performed AtPathologist SignatureANTINUCLEAR ABS, IFANegative.01/21/2025 5:08 PM EDTFIRELANDSComment: Negative <1:80 ? Borderline ??1:80 Positive >1:80 ICAP nomenclature: AC-0 For more information about Hep-2 cell patterns use ANApatterns.org, the official website for the International Consensus on Antinuclear Antibody ([place]) Patterns (ICAP). Performed at: ??[facility] ??[id number] Talent Scout: Sergio Fox PhD, Phone: ??[phone] Specimen (Source)Anatomical Location / LateralityCollection Method / Volume Collection TimeReceived TimeOtherTopography unknown / Iqfyqib7801/20/2025 8:03 AM EDT1 8:03 AM EDT Narrative Authorizing ProviderResult TypeResult StatusCoral Crowe Tucker [facility] BLOOD ORDERABLESFinal ResultPerforming OrganizationAddressty/State/ZIP CodePhone Number [address] [place] [address], * Uric acid (01/20/2025 8:03 AM EDT)ComponentValueRef RangeTest MethodAnalysis TimePerformed AtPathologist SignatureURIC ACID4.84.4 - 7.6 mg/dL01/20/2025 12:21 PM [facility] CtrSpecimen (Source)Anatomical Location / LateralityCollection Method / VolumeCollection TimeReceived TimeOther Topography unknown / Gcqmzcw7601/20/2025 8:03 AM EDT1 8:03 AM EDT Narrative Authorizing ProviderResult TypeResult StatusMoy Villa [facility] BLOOD ORDERABLESFinal ResultPerforming OrganizationAddressCity/State/ZIP CodePhone Number [address] [place] [address], [facility] [address] [place] [address] * TSH (01/20/2025 8:03 AM EDT)ComponentValueRef RangeTest MethodAnalysis Time Performed AtPathologist SignatureTHYROID STIMULATING HORMONE1.980.45 - 5.33 u[iU]/mL01/20/2025 12:36 PM [facility] CtrSpecimen (Source) Anatomical Location / LateralityCollection Method / VolumeCollection Time Received TimeOtherTopography unknown / Dfvirah9701/20/2025 8:03 AM EDT1 8:03 AM EDT Narrative Authorizing ProviderResult TypeResult StatusMoy Villa [facility] BLOOD ORDERABLESFinal ResultPerforming OrganizationAddressCity/State/ZIP CodePhone Number [address] [place] [address], [facility] [address] [place] [address] * Magnesium (01/20/2025 8:03 AM EDT)ComponentValueRef RangeTest MethodAnalysis TimePerformed AtPathologist SignatureMAGNESIUM2.41.9 - 2.7 mg/dL01/20/2025 12:21 PM [facility] CtrSpecimen (Source)Anatomical Location / LateralityCollection Method / VolumeCollection TimeReceived TimeOther Topography unknown / Wbkofba6901/20/2025 8:03 AM EDT1 8:03 AM EDT Narrative Authorizing ProviderResult TypeResult StatusMoy GARCÍA BLOOD ORDERABLESFinal ResultPerforming OrganizationAddressCity/State/ZIP CodePhone Number [facility] [address] [place] [address], [facility] [address] [place] [address] * (ABNORMAL) Lipid panel (01/20/2025 8:03 AM EDT)ComponentValueRef RangeTest MethodAnalysis TimePerformed AtPathologist PfnqysvrpZCENPBDWYOS492(L)140 - 200 mg/dL01/20/2025 12:21 PM [facility] CtrComment: Chol less than 200 mg/dl ?low risk Chol 201-239 mg/dl ?borderline risk Chol 240 mg/dl and greater ?high risk HDL ZFRRSIWJPRF9655 - 92 mg/dL01/20/2025 12:21 PM [facility] CtrComment: HDL CHOL ATP-III CLASSIFICATION ? Cardiovascular ? Risk HDL > or equal to 60 mg/dL LOW HDL < 40 mg/dL HIGH TRIGLYCERIDE W/LKPZJN579 - 149 mg/dL01/20/2025 12:21 PM [facility] CtrComment: TRIG ATP III CLASSIFICATION TRIG less than 150 mg/dL ?Normal TRIG 150-199 mg/dL ?Borderline high TRIG 200-500 mg/dL ?High TRIG greater than 500 mg/dL ?? Very high Standard traceable to the Center for Disease Conrtrol and Prevention (CDC) test method. LDL CHOLESTEROL,KBTAEARAUK844 - 100 mg/dL01/20/2025 12:21 PM [facility] CtrComment: LDL ATP III CLASSIFICATION LDL less than 100 mg/dL ? Optimal LDL 100-129 mg/dL ? Near or above optimal LDL 130-159 mg/dL ? Borderline high LDL 160-189 mg/dL ? High LDL greater than 189 mg/dL ?Very high VLDL SSCKZQSUNCX87uk/dL01/20/2025 12:21 PM [facility] CHOL/HDL RATIO3.1<5.010 12:21 PM [facility] Specimen (Source)Anatomical Location / LateralityCollection Method / Volume Collection TimeReceived TimeOtherTopography unknown / Dffmhgu7901/20/2025 8:03 AM EDT1 8:03 AM EDT Narrative Authorizing ProviderResult TypeResult StatusMoy Villa [facility] BLOOD ORDERABLESFinal ResultPerforming OrganizationAddressCity/State/ZIP CodePhone Number [facility] [address] [place] [address], [facility] [address] [place] [address] * (ABNORMAL) Comprehensive metabolic panel (01/20/2025 8:03 AM EDT)Component ValueRef RangeTest MethodAnalysis TimePerformed AtPathologist SignatureGlucose 9870 - 100 mg/dL01/20/2025 12:21 PM [facility] CtrComment: Random Glucose Reference Range is dependent on time and content of last meal. Glucose of more than 200 mg/dL in a nonstressed, ambulatory subject supports the diagnosis of Diabetes Mellitus. ADA recommended reference range OKC489 - 25 mg/dL01/20/2025 12:21 PM [facility] CtrCREATININE 1.100.70 - 1.30 mg/dL01/20/2025 12:21 PM [facility] ESTIMATED GFR>60. 12:21 PM [facility] HlxOijoyc413 136 - 145 mmol/L1 12:21 PM [facility] CtrPotassium, Bld4.43.5 - 5.1 mmol/L1 12:21 PM [facility] Iyuackzb1196 - 107 mmol/L1 12:21 PM [facility] Carbon Mihptqa57.1(H)21.0 - 31.0 mmol/L1 12:21 PM [facility] CtrAnion Gap11.36.0 - 15.010 12:21 PM [facility] CtrCalcium9.08.6 - 10.3 mg/dL01/20/2025 12:21 PM [facility] CtrTOTAL PROTEIN7.06.4 - 8.9 g/dL01/20/2025 12:21 PM [facility] CtrALBUMIN LEVEL3.93.5 - 5.7 g/dL01/20/2025 12:[facility]trGLOBULIN3.1g/dL01/20/2025 12:21 PM [facility] CtrALBUMIN/GLOBULIN RATIO1.310 12:21 PM [facility] CtrBILIRUBIN,TOTAL0.70.3 - 1.0 mg/dL01/20/2025 12:21 PM EDT [facility] CtrASPARTATE AMINO YNLZNCXDPVH2610 - 39 U/L1 12:21 PM [facility] CtrALANINE JXYSUHYSBYFGTXPW947 - 52 U/L 01/20/2025 12:21 PM [facility] CtrALKALINE VIVFNCUUJEG3168 - 104 U/L1 12:21 PM [facility] CtrSpecimen (Source) Anatomical Location / LateralityCollection Method / VolumeCollection Time Received TimeOtherTopography unknown / Ejsotfj9701/20/2025 8:03 AM EDT1 8:03 AM EDT Narrative Authorizing ProviderResult TypeResult StatusBranthony Villa [facility] BLOOD ORDERABLESFinal ResultPerforming OrganizationAddressCity/State/ZIP CodePhone Number [facility] [address] [place] [address], [facility] [address] [place] [address] * Colonoscopy (05/10/2022 12:00 PM EST)Anatomical RegionLateralityModality EndoscopySpecimen (Source)Anatomical Location / LateralityCollection Method / VolumeCollection TimeReceived Time05/10/2022 12:00 PM EST Narrative 06/14/2022 12:00 PM EST PERFORMED AT [facility] LOCATION:[id number] Diverticulosis Procedure Note CONVERSION, GENERIC - 08/25/2022 PERFORMED AT [facility] LOCATION:[id number] Diverticulosis Authorizing ProviderResult TypeResult StatusAmy Warchol NPENDOSCOPY PROCEDURE ORDERABLESFinal Result * (ABNORMAL) Cologuard?? colon cancer screening (03/27/2022)ComponentValueRef RangeTest MethodAnalysis TimePerformed AtPathologist SignatureCOLOGUARD RESULT REPORTABLEPositive(A)NegativeNOMS LEGACY EXTERNAL LABComment: POSITIVE TEST RESULT. A positive Cologuard result should be followed with a colonoscopy or visual examination of the colon. The normal value (reference range) for this assay is negative. TEST DESCRIPTION: Composite algorithmic analysis of stool DNA-biomarkers with hemoglobin immunoassay. ?? Quantitative values of individual biomarkers are not reportable and are not associated with individual biomarker result reference ranges. Cologuard is intended for colorectal cancer screening ofadults of either sex, 45 years or older, who are at average-risk for colorectal cancer (CRC). Cologuard has been approved for use by the U.S. FDA. The performance of Cologuard was established in a cross sectional study of average-risk adults aged 50-84. Cologuard performance in patients ages 45 to 49 years was estimated by sub-group analysis of near-age groups. Colonoscopies performed for a positive result may find as the most clinically significant lesion: colorectal cancer [4.0%], advanced adenoma (including sessile serrated polyps greater than or equal to 1cm diameter) [20%] or non- advanced adenoma [31%]; or no colorectal neoplasia [45%]. These estimates are derived from a prospective cross-sectional screening study of 10,000 individuals at average risk for colorectal cancer who were screened with both Cologuard and colonoscopy. (Deepali Montoya al, N Engl J Med 2014;370(14):4939-2211.) Cologuard may produce a false negative or false positive result (no colorectal cancer or precancerous polyp present at colonoscopy follow up). A negative Cologuard test result does not guarantee the absence of CRC or advanced adenoma (pre-cancer). The current Cologuard screening interval is every 3 years. ([place] Cancer Society and U.S. Multi-Society Task Force). Cologuard performance data in a 10,000 patient pivotal study using colonoscopy as the reference method can be accessed at the following location: www.[employer].com/results. Additional description of the Cologuard test process, warnings and precautions can be found at www.cologuard.com. Specimen (Source)Anatomical Location / LateralityCollection Method / Volume Collection TimeReceived Time03/27/2022 Narrative Authorizing ProviderResult TypeResult StatusCarrie Taylor [facility] MOLECULAR DIAGNOSTICS ORDERABLESFinal ResultPerforming OrganizationAddressCity/State/ZIP CodePhone Number [facility] from Last 3 Months or Most Recently Relevant to Health Maintenance Insurance Care Teams Team MemberRelationshipSpecialtyStart DateEnd Date Moy Villa MD [address] [place] [address] PCP - GeneralFamily Medicine09/28/22 Moy Villa MD [address] [place] [address] PCP - ACO [facility]01/07/23 Coral Ceballos NP [address] [place] [address] Nurse PractitionerFaAdventHealth Murray04/08/24 Radha Weiner, YING [address] [place] [address] Registered NurseP[facility]10/30/24
--- OUTSIDE RECORDS SUMMARY | 2025-03-05 13:32 | XMS_ITS | Encounter Summary ---
Author Organization [facility] Address [address] [place] [address] Phone Care Team Providers Care Tumbling Machine Operator Name Role Phone Moy Villa MD Primary Care Provider [phone] Encounter Details DateTypeDepartmentCare Team (Latest Contact Info)Uyrofczpnno86/21/2025Telephone [facility] [address] [address] Faina Sebastian LPN Social History Tobacco UseTypesPacks/DayYears UsedDateSmoking Tobacco: FormerCigarettesQuit: 1990Smokeless Tobacco: NeverAlcohol UseStandard Drinks/WeekCommentsYes6 (1 standard drink = 0.6 oz pure alcohol)Sex and Gender InformationValueDate RecordedSex Assigned at BirthNot on fileLegal VreWmsq98/26/2022 7:55 PM EST Gender IdentityNot on fileSexual OrientationNot on filedocumented as of this encounter Miscellaneous Notes * Telephone Encounter - Nel Freitas LPN - 03/05/2025 11:[address] Lucia's office update. Note faxed to given number at [phone]. This fax number was confirmed. * Telephone Encounter - Faina Sebastian LPN - 02/28/2025 10:52 AM EST Call from [place] with Dr. Wakefield' office. Patient has MRI guided prostate biopsy scheduled under [facility] 12.02.25. Inquiring about holding ASA 1 week prior to surgery. And requesting cardiac clearance for anesthesia. (F) [phone] (F) [phone] documented in this encounter Plan of Treatment DateTypeDepartmentCare Team (Latest Contact Info)Joushkvnuyj28/25/2026 1:00 PM ESTOffice Visit [address] [place] [address] Jo Ann Jc, INCOMING INSPECTOR-FIG CAPRIFIER [address] [facility] [address], [address] [place] [address] 10/01/2025 2:30 PM EDTOffice Visit [address] [place] [address] Jo Ann Jc, INCOMING INSPECTOR-FIG CAPRIFIER [address] [facility] 2, [facility] [address] [place] [address] documented as of this encounter Visit Diagnoses Not on filedocumented in this encounter Additional Health Concerns AssessmentNoted TimeA fall risk assessment has been completed for the patient 02/04/2025 2:37 PM EDTdocumented as of this encounter Care Teams Team MemberRelationshipSpecialtyStart DateEnd Date Moy Villa MD [address] [place] [id number] PCP - GeneralFamily Bkdhnfvt63/27/23documented as of this encounter
--- OUTSIDE RECORDS SUMMARY | 2025-03-05 13:32 | XMS_ITS | Clinical Summary ---
Author Organization [facility] Address [address] [place] [address] Care Team Providers Care Electronic Equipment Installer Name Role Phone Unavailable Primary Care Provider Unavailabl e Social History Tobacco UseTypesPacks/DayYears UsedDateSmoking Tobacco: Never AssessedSex and Gender InformationValueDate RecordedSex Assigned at BirthNot on fileLegal Sex Male10/07/2021 12:21 AM EDTGender IdentityNot on fileSexual OrientationNot on file Plan of Treatment Not on file
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
--- OUTSIDE RECORDS SUMMARY | 2025-03-05 13:33 | XMS_ITS | Encounter Summary ---
Author Organization [facility] Address [address] [place] [address] Care Team Providers Care Staff Antisubmarine Officer Name Role Phone Moy Villa MD Primary Care Provider [phone] Moy Villa MD Unavailable [phone] Coral Ceballos INDUCTION MACHINE SETTER Unavailable [phone] Radha Weiner RN Unavailable [phone] Reason for Visit * ReasonOnset DateCommentslab ofaafbcv61/19/2025 Encounter Details DateTypeDepartmentCare Team (Latest Contact Info)Mlrgoaxvaem22/19/2025Telephone [facility] [place] [facility] [address] [place] [address] Coral Ceballos, INDUCTION MACHINE SETTER [address] [place] [address] lab question Social History Tobacco UseTypesPacks/DayYears UsedDateSmoking Tobacco: FormerCigarettesQuit: 1992Smokeless Tobacco: NeverAlcohol UseStandard Drinks/WeekCommentsYes6 (1 standard drink [...] times a week11/01/2024How often do you attend baptist or gnosticism services?Never11/01/2024Do you belong to any clubs or organizations such as baptist groups, unions, fraternal or athletic groups, or [...] have six or more drinks on one occasion?Vvqham9308/13/2024Overall Financial Resource Strain (CARDIA)AnswerDate RecordedHow hard is it for you to pay for the very basics like food, housing, medical care, and heating?Not hard at all 04/09/2024HQ-2AnswerDate RecordedPatient Health Questionnaire-2 Score0 02/25/2025[facility] [place] [facility] - Occupational Stress QuestionnaireAnswerDate RecordedDo you feel stress - tense, restless, nervous, or anxious, or unable to sleep at night because yourmind is troubled all the time - these days?Only a vfezld8104/09/2024Exercise Vital SignAnswerDate Recorded On average, how many [...] steady place to sleep or slept in [facility] (including now)?No10/20/2022Housing Stability Vital SignAnswerDate RecordedIn the last 12 months, was there a time when you were not able to pay the mortgage or rent on time?No11/01/2024In the past 12 months, how many times have you moved where you were living? At any time in the past 12 months, were you homeless or living in a detention (including now)?No11/01/2024Sex and Gender InformationValueDate RecordedSex Assigned at BirthNot on fileLegal CerJgny6006/22/2022 7:05 PM EDTGender Identity Not on fileSexual TzomsaxxwcuBrnaqofe11/24/2023 8:33 PM EDTOccupationIndustryJob Start DateJob End DateRetiredNot on fileNot on fileNot on filedocumented as of this encounter Miscellaneous Notes * Telephone Encounter - Coral Ceballos NP - 02/26/2025 11:36 AM EST These labs are stable from previous labs. Patient not currently having any outward signs of bleeding. Would likely improve as alcohol use decreases. * Telephone Encounter - Marlys Fuller - 02/26/2025 11:26 AM EST Patient dropped off labs from Dr Wakefield. Stated his anemic levels were low. Please advise documented in this encounter Plan of Treatment DateTypeDepartmentCare Team (Latest Contact Info)Lstosfhjjtk28/18/2026 10:00 AM ESTOffice Visit [facility] [place] [facility] [address] [place] [address] Moy Villa MD [address] [place] [address] documented as of this encounter Visit Diagnoses Not on filedocumented in this encounter Additional Health Concerns AssessmentNoted TimePHQ-9 Depression Total Score: 1:00 PM EST documented as of this encounter Care Teams Team MemberRelationshipSpecialtyStart DateEnd Date Moy Villa MD [address] [place] [address] PCP - GeneralFamily Medicine09/28/22 Moy Villa MD [address] [place] [address] PCP - ACO [facility]01/07/23 Coral Ceballso NP [address] [place] [address] Nurse PractitionerFamily Neconjuj09/30/24 Radha Weiner, YING [address] [place] [address] Registered NurseFamily Medicine10/30/24documented as of this encounter
--- OUTSIDE RECORDS SUMMARY | 2025-03-05 13:33 | XMS_ITS | Encounter Summary ---
Author Organization [facility] Address [address] [place] [address] Care Team Providers Care Saddle Stitcher Name Role Phone Moy Villa MD Primary Care Provider [phone] Moy Villa MD Unavailable [phone] 54 Coral Ceballos VICE PRESIDENT INVESTOR RELATIONS Unavailable [phone] Radha Weiner RN Unavailable [phone] Encounter Details DateTypeDepartmentCare Team (Latest Contact Info)Zngpoptwmgg80/18/2025Travel Social History Tobacco UseTypesPacks/DayYears UsedDateSmoking Tobacco: FormerCigarettesQuit: [...] times a week11/01/2024How often do you attend restorationism or sikhism services?Never11/01/2024Do you belong to any clubs or organizations such as restorationism groups, unions, [employer] or athletic groups, or school groups?Yes11/01/2024How often [...] have six or more drinks on one occasion?Hwispb4608/13/2024Overall Financial Resource Strain (CARDIA)AnswerDate RecordedHow hard is it for you to pay for the very basics like food, housing, medical care, and heating?Not hard at all 04/09/2024HQ-2AnswerDate RecordedPatient Health Questionnaire-2 Score0 02/25/2025[facility] [place] of Occupational Health - Occupational Stress QuestionnaireAnswerDate RecordedDo you feel stress - tense, restless, nervous, or anxious, or unable to sleep at night because yourmind is troubled all the time - these days?Only a nwsqec6604/09/2024Exercise Vital SignAnswerDate Recorded On average, how many [...] steady place to sleep or slept in [facility] (including now)?No10/20/2022Housing Stability Vital SignAnswerDate RecordedIn the [...] InformationValueDate RecordedSex Assigned at BirthNot on fileLegal LxtJoob9906/22/2022 7:05 PM EDTGender Identity Not on fileSexual BtbpenstsmbIhpetane21/24/2023 8:33 PM EDTOccupationIndustryJob Start DateJob End DateRetiredNot on fileNot on fileNot on filedocumented as of this encounter Functional Status * Over the past 2 weeks, how often have you been bothered by any of the following problems?QuestionAnswerDate of AssessmentAuthorLittle interest or pleasure in doing thingsNot at all02/25/2025 1:00 PM Stella Law MA Feeling down, depressed, or hopelessNot at all02/25/2025 1:00 PM Stella Law MAPatient Health Questionnaire-2 Lydwq88104/27/2024 1:00 PM Stella Law MA * QuestionAnswerDate [...] your family downNot at all02/25/2025 1:00 PM Stella Law MATrouble concentrating on things, such as reading the newspaper or watching television Not at all02/25/2025 1:00 PM Stella Law, MAMoving or speaking so slowly that other people could have noticed? Or the opposite - being so fidgety or restless that you have been moving around a lot more than usual.Not at all 02/25/2025 1:00 PM Stella Law MAThoughts that you would be better off or hurting yourself in some wayNot at all02/25/2025 1:00 PM Stella Law MAPatient Health Questionnaire-9 Embwo67504/27/2024 1:00 PM Stella Law MA documented as of this encounter Plan of Treatment DateTypeDepartmentCare Team (Latest Contact Info)Eyyibovrrjr61/18/2026 10:00 AM ESTOffice Visit [facility] [address] [place] [phone] Moy Villa MD [address] [place] [address] documented as of this encounter Visit Diagnoses Not on filedocumented in this encounter Additional Health Concerns AssessmentNoted TimePHQ-9 Depression Total Score: 1:00 PM EST documented as of this encounter Care Teams Team MemberRelationshipSpecialtyStart DateEnd Date Moy Villa MD [address] [place] [address] PCP - GeneralFanmly Medicine09/28/22 Moy Villa MD [address] [place] [address] PCP - ACO [facility]01/07/23 Coral Ceballos NP [address] [place] [address] Nurse PractitionerFawrentham developmental center Dwbqpgpo77/30/24 Radha Weiner, YING [address] [place] [address] Registered NurseFamily Medicine10/30/24documented as of this encounter
--- OUTSIDE RECORDS SUMMARY | 2025-03-05 13:33 | XMS_ITS | Encounter Summary ---
Author Organization [facility] Address [address] [place] [address] Care Team Providers Care Lpn Private Duty Name Role Phone Moy Villa MD Primary Care Provider [phone] Moy Villa MD Unavailable [phone] Coral Ceballos HIDE INSPECTOR Unavailable [phone] Radha Weiner RN Unavailable [phone] Encounter Details DateTypeDepartmentCare Team (Latest Contact Info)Xzgsptqvvvd77/26/2025Patient Outreach [facility] [address] [place] [phone] Radha Weiner, YING [address] [place] [address] Social History Tobacco UseTypesPacks/DayYears UsedDateSmoking Tobacco: FormerCigarettesQuit: [...] week11/01/2024How often do you attend protestant or hinduism services?Never11/01/2024Do you belong to any clubs or [...] have six or more drinks on one occasion?Pmpuni1008/13/2024Overall Financial Resource Strain (CARDIA)AnswerDate RecordedHow hard is it for you to pay for the very basics like food, housing, medical care, and heating?Not hard at all 04/09/2024HQ-2AnswerDate RecordedPatient Health Questionnaire-2 Score0 02/25/2025[facility] [place] of Occupational Health - Occupational Stress QuestionnaireAnswerDate RecordedDo you feel stress - tense, restless, nervous, or anxious, or unable to sleep at night because yourmind is troubled all the time - these days?Only a emwigh9604/09/2024Exercise Vital SignAnswerDate Recorded On average, how many [...] steady place to sleep or slept in [facility] (including now)?No10/20/2022Housing Stability Vital SignAnswerDate RecordedIn the last 12 months, was there a time when you were not able to pay the mortgage or rent on time?No11/01/2024In the past 12 months, how many times have you moved where you were living? At any time in the past 12 months, were you homeless or living in a long term (including now)?No11/01/2024Sex and Gender InformationValueDate RecordedSex Assigned at BirthNot on fileLegal XlgJqsf7706/22/2022 7:05 PM EDTGender Identity Not on fileSexual OdhylpfxepfMkyrpcak09/24/2023 8:33 PM EDTOccupationIndustry Job Start DateJob End DateRetiredNot on fileNot on fileNot on filedocumented as of this encounter Progress Notes * Radha Weiner RN - 03/05/2025 8:04 AM EST Pt calls re: luneststephanie refill. Reviewed chart. [facility]. He is advised to contact [facility] pharmacy when they open to check on medication. The only other issue that sheet writer could see is possible need for a PA that office would need to complete. Advised will send to office for review. <March 05, 2025, 12:07 - Radha Weiner RN> [employer] is prescription coverage, per pt report. He is now stating Deejay, is filling medication. documented in this encounter Plan of Treatment DateTypeDepartmentCare Team (Latest Contact Info)Jomnuwupwve38/18/2026 10:00 AM ESTOffice Visit [facility] [address] [place] [address] Moy Villa MD [address] [place] [address] documented as of this encounter Visit Diagnoses Diagnosis Essential hypertension- Primary Unspecified essential hypertension Insomnia, unspecified type documented in this encounter Additional Health Concerns AssessmentNoted TimePHQ-9 Depression Total Score: 1:00 PM EST documented as of this encounter Care Teams Team MemberRelationshipSpecialtyStart DateEnd Date Moy Villa MD [address] [place] [address] PCP - GeneralFamily Medicine09/28/22 Moy Villa MD [address] [place] [address] PCP - ACO [facility]01/07/23 Coral Ceballos NP [address] [place] [address] Nurse PractitionerFamily Gsolldvh76/30/24 Radha Weiner, YING [address] [place] [address] Registered NurseFamily Medicine10/30/24documented as of this encounter
--- OUTSIDE RECORDS SUMMARY | 2025-03-05 13:33 | XMS_ITS | Clinical Summary ---
Author Organization [facility] Address [address] [place] [address] Care Team Providers Care Cutting Room Supervisor Name Role Phone Moy Villa MD Unavailable [phone] Moy Villa MD Primary Care Provider [phone] Allergies Active AllergyReactionsCriticalityNoted DateCommentsHydrocodone-Acetaminophen Zwgdnzc4603/09/2016 Medications MedicationSigDispense QuantityRefillsLast FilledStart DateEnd DateStatus DULoxetine (CYMBALTA) 30 mg capsule Take 60 mg by mouth.05/25/2023ctive Pregabalin (LYRICA) 200 mg capsule Take 200 mg by mouth every 12 hours.08/14/2023ctive tamsulosin (FLOMAX) 0.4 mg Take 0.4 mg by mouth.Active testosterone cypionate (DEPO-TESTOSTERONE) 200 mg/mL injection Inject 200 mg intramuscularly every 2 weeks.03/27/2023ctive atorvastatin (LIPITOR) 20 mg tablet Take 20 mg by mouth.03/05/2018Active meloxicam (MOBIC) 15 mg tablet Take 15 mg by mouth.07/10/2023ctive metoprolol succinate ER (TOPROL XL) 50 mg 24 hr tablet Take 50 mg by mouth.03/05/2018Active docosahexaenoic acid/epa (FISH OIL ORAL) Take by mouth once daily.Active ascorbic acid (KATYA-C ORAL) Take by mouth once daily.Active ergocalciferol, vitamin D2, (VITAMIN D2 ORAL) Take by mouth once daily.Active acetaminophen (TYLENOL EXTRA STRENGTH) 500 mg tablet Take 2 tablets by mouth every 8 hours as needed for pain for up to 40 doses. 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 11/03/2023 Social History Tobacco UseTypesPacks/DayYears UsedDateSmoking Tobacco: FormerCigarettes Smokeless Tobacco: Never Comments:1 ppd x 10 years qu it in his 0s Alcohol UseStandard Drinks/WeekCommentsYes0 (1 standard drink = 0.6 oz pure alcohol)6-8 drinks once a weekSex and Gender InformationValueDate RecordedSex Assigned at BirthNot on fileLegal QycNtwv43/17/2016 12:35 PM ESTGender Identity Not on fileSexual OrientationNot on file Last Filed Vital Signs Vital SignReadingTime TakenCommentsBlood Nomtshbc842/6503/05/2024 7:39 AM EST Ntgty071903/05/2024 7:39 AM GPQNkkyrcpspga61.8 ??C (98.2 ??F)03/05/2024 7:39 AM ESTRespiratory Imeo747003/05/2024 7:39 AM ESTOxygen Pvexbzfmcz814%03/05/2024 7:39 AM ESTInhaled Oxygen Concentration--Vbxlmy13.7 kg (206 lb 9.1 oz)03/04/2024 11:52 AM KEAKxdcdv109.2 cm (5' 7.01 )03/04/2024 11:52 AM ESTBody Mass Index32.35 03/04/2024 11:52 AM EST Plan of Treatment Health MaintenanceDue DateLast DoneCommentsAbdominal Aortic Aneurysm Screening 5Annual PCP Team Chronic Disease Visit1972Anxiety Screening 1972Depression Pffndbbgs47/10/1973Hepatitis C Yepwhddul58/10/1973CT Sgshvhuztnvn56/10/2000Fecal Occult Blood11/18/19995100Auxlfosjcpidj95/10/2000RSV Vaccine (1 - Risk 60-74 years 1-dose series)2014Shingrix Vaccine (2 of 2) Medicare Annual Wellness Visit11/09/2019Colonoscopy dvance Directive Wzjhqzacst83/01/2025Covid-19 Vaccine ( season), 07/17/2021, 01/13/2021, Additional history existsInfluenza Vaccine (#1)/09/2023, 01/26/2023, 01/15/2022, Additional history existsLDL Urptsevldfb49, 02/23/2024, 3Cologuard (FIT-DNA), 03/21/2019Colorectal Cancer Gkhimkhlx86/18/2025Diabetes Hniueswby51, 11/14/2023, 3DTaP,Tdap,Td Vaccine (2 - Td or Tdap)Lipid Ghmntneyi05, 02/23/2024, 3Pneumococcal Vaccine: 50+ Hocnehksd38/20/2023, 12/31/2016, 02/26/2015 Procedures Procedure NamePriorityDate/TimeAssociated DiagnosisCommentsCOMPREHENSIVE METABOLIC VWZIZIodrtal56/15/2024 8:38 AM EST Peripheral vascular disease, unspecified (HCC) Pure hypercholesterolemia Routine general medical examination at a health care facility Low libido Unspecified essential hypertension Lumbar radiculopathy Vitamin D deficiency 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 pectoris, unspecified vessel or lesion type Former smoker Engages in binge consumption of alcohol LIPID PANEL, IQEHUMJGbrktxw28/15/2024 8:38 AM EST Peripheral vascular disease, unspecified (HCC) Pure hypercholesterolemia Routine general medical examination at a health care facility Low libido Unspecified essential hypertension Lumbar radiculopathy Vitamin D deficiency 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 pectoris, unspecified vessel or lesion type Former smoker Engages in binge consumption of alcohol from Last 3 Months or Most Recently Relevant to Health Maintenance Results * (ABNORMAL) LIPID PANEL BASIC (02/23/2024 8:38 AM EST)ComponentValueRef Range Test MethodAnalysis TimePerformed AtPathologist SignatureCholesterol, Mhtgn034 <200 mg/dL02/23/2024 5:05 PM [facility]: <200 mg/dL, Desirable 200-239 mg/dL, Borderline high >239 mg/dL, High Jvleycidpdce041<150 mg/dL02/23/2024 5:05 PM [facility] Comment: <150 mg/dL, Normal 150-199 mg/dL, Borderline high 200-499 mg/dL, High >499 mg/dL, Very high HDL Omctiklkwsw48(L)>39 mg/dL02/23/2024 5:05 PM [facility]Comment: 40-59 mg/dL, Acceptable >59 mg/dL, High: Negative risk factor for coronary heart disease <40 mg/dL, Low: Positive risk factor for coronary heart disease Non HDL Mbbpzqdvzlc68<130 mg/dL02/23/2024 5:05 PM [facility]: <130 mg/dL, Optimal 130-159 mg/dL, Near optimal/above optimal 160-189 mg/dL, Borderline high 190-219 mg/dL, High >219 mg/dL, Very high Secondary prevention optimal non HDL Cholesterol levels are recommended to be <100 mg/dL Fasting Crwn43akj03/15/2024 5:[address] [facility] LABVLDL Grzbdznerqj81<30 mg/dL02/23/2024 5:05 PM [facility] TC:HDL Ratio3.13<5.10104/24/2023 5:05 PM [facility] LABLDL Cholesterol, Hnpozcorvj48<100 mg/dL02/23/2024 5:05 PM [facility]Comment: <100 mg/dL, Optimal 100-129 mg/dL, Near optimal/above optimal 130-159 mg/dL, Borderline high 160-189 mg/dL, High >189 mg/dL, Very high Secondary prevention optimal LDL Cholesterol levels are recommended to be < 70 mg/dL LDL:HDL Ratio1.51<2.5402/23/2024 5:[address] [facility] Comment: Reference: 1. National Cholesterol Education Program ATP III Guideline At-A-Glance Quick Desk Reference: National Heart, Lung, and Blood [place]. National Institutes of Health. 2001: NIH Publication No. 01-3305. 2. An International Atherosclerosis Society position paper: global recommendations for the management of dyslipidemia: executive summary, Atherosclerosis. 2014: 232(2):410-413. Specimen (Source)Anatomical Location / LateralityCollection Method / Volume Collection TimeReceived TimeBloodBLOOD SPECIMEN / UnknownVenipuncture / Unknown 02/23/2024 8:38 AM EST02/23/2024 8:39 AM EST Narrative Authorizing ProviderResult TypeResult StatusBranthony Villa MDLABORATORYFinal ResultPerforming OrganizationAddressCity/State/ZIP CodePhone Number [facility] [address] [place] [address], [facility] [address] [place] [phone] * COMPREHENSIVE METABOLIC PANEL (02/23/2024 8:38 AM EST)ComponentValueRef Range Test MethodAnalysis TimePerformed AtPathologist SignatureProtein, Total6.96.3 - 8.0 g/dL02/23/2024 9:10 AM ESTNOR[facility]CO[facility] LABAlbumin 4.23.9 - 4.9 g/dL02/23/2024 9:10 AM ESTNOR[facility]CO[facility] Calcium, Total9.48.5 - 10.2 mg/dL02/23/2024 9:10 AM ESTNORTHCOAST [facility] LABBilirubin, Total0.40.2 - 1.3 mg/dL02/23/2024 9:10 AM EST [facility] LABAlkaline Saixjvjspit3212 - 113 U/L 02/23/2024 9:[address] [facility] TUCZWK7119 - 40 U/L 02/23/2024 9:[address] [facility] ZXVCMS7599 - 54 U/L 02/23/2024 9:[address] [facility] XKRLpfqwum0592 - 99 mg/dL02/23/2024 9:[address] [facility] LABComment: The [place] Diabetes Association (ADA) provides guidance for cutoff values for fasting glucose andrandom glucose. The ADA defines fasting as no caloric intake for at least 8 hours. Fasting plasma glucose results between 100 to 125 mg/dL indicate increased risk for diabetes (prediabetes). Fasting plasma glucose results greater than or equal to 126 mg/dL meet the criteria for diagnosis of diabetes. In the absence of unequivocal hyperglycemia, results should be confirmed by repeat testing. In a patient with classic symptoms of hyperglycemia or hyperglycemic crisis, random plasma glucose results greater than or equal to 200 mg/dL meet the criteria for diagnosis of diabetes. Reference: Standards of Medical Care in Diabetes 2016, [place] Diabetes Association. Diabetes Care. 2016.39(Suppl 1). JYI181 - 24 mg/dL02/23/2024 9:[address] [facility] Creatinine0.990.73 - 1.22 mg/dL02/23/2024 9:[address] [facility] GBSAzkjco823559 - 144 mmol/L104/24/2023 9:[address] [facility] LABPotassium4.33.7 - 5.1 mmol/L104/24/2023 9:[address] [facility] KUODrvnjfcp83988 - 107 mmol/L104/24/2023 9:10 AM [facility] JEJDL56359 - 30 mmol/L104/24/2023 9:10 AM [facility] LABAnion Gap88 - 15 mmol/L104/24/2023 9:[address] [facility] LABEstimated Glomerular Filtration Rate82 >=60 mL/min/1.73m 02/23/2024 9:10 AM ESTNORTHCOAST MCL[facility]EN [facility] LABComment:Estimated Glomerular Filtration Rate (eGFR) is calculated using the 2020 CKD-EPI creatinine equation. This equation utilizes serum creatinine, sex, and age as parameters. The creatinine assay has traceable calibration to isotope dilution- mass spectrometry. Refer to KDIGO guidelines for clinical interpretation. In patients with unstable renal function, e.g. those with acute kidney injury, the eGFRmay not accurately reflect actual GFR.Specimen (Source)Anatomical Location / LateralityCollection Method / VolumeCollection TimeReceived TimeBloodBLOOD SPECIMEN / UnknownVenipuncture / Pgudrtf5502/23/2024 8:38 AM EST02/23/2024 8:39 AM EST Narrative Authorizing ProviderResult TypeResult StatusBranthony Villa MDLABORATORYFinal ResultPerforming OrganizationAddressCity/State/ZIP CodePhone Number [facility] [address] [place] [phone] from Last 3 Months or Most Recently Relevant to Health Maintenance Insurance Care Teams Team MemberRelationshipSpecialtyStart DateEnd Moy Villa MD [address] [place] [address] PCP - [facility]02/12/24 Moy Villa MD [address] [place] [address] [facility]11/06/23
--- OUTSIDE RECORDS SUMMARY | 2025-03-05 13:33 | XMS_ITS | Encounter Summary ---
Author Organization [facility] Address [address] [place] [address] Care Team Providers Care Toll Transmission Worker Name Role Phone Moy Villa MD Primary Care Provider [phone] Moy Villa MD Unavailable [phone] Coral Ceballos BUSINESS CHANGE MANAGER Unavailable [phone] Radha Weiner RN Unavailable [phone] Encounter Details DateTypeDepartmentCare Team (Latest Contact Info)Xpqswkmupue77/18/2025Patient Outreach [facility] [address] [place] [address] Radha Weiner, YING [address] [place] [address] Social History Tobacco UseTypesPacks/DayYears UsedDateSmoking Tobacco: FormerCigarettesQuit: [...] times a week11/01/2024How often do you attend caodaism or gnosticist services?Never11/01/2024Do you belong to any clubs or organizations such as caodaism groups, unions, fraternal or athletic groups, or [...] have six or more drinks on one occasion?Pllsdm9508/13/2024Overall Financial Resource Strain (CARDIA)AnswerDate RecordedHow hard is it for you to pay for the very basics like food, housing, medical care, and heating?Not hard at all 04/09/2024HQ-2AnswerDate RecordedPatient Health Questionnaire-2 Score0 02/25/2025[facility] [place] of Occupational Health - Occupational Stress QuestionnaireAnswerDate RecordedDo you feel stress - tense, restless, nervous, or anxious, or unable to sleep at night because yourmind is troubled all the time - these days?Only a drriou1504/09/2024Exercise Vital SignAnswerDate Recorded On average, how many [...] place to sleep or slept in [facility] (including now)?No10/20/2022Housing Stability Vital SignAnswerDate RecordedIn the last 12 months, was there a time when you were not able to pay the mortgage or rent on time?No11/01/2024In the past 12 months, how many times have you moved where you were living? At any time in the past 12 months, were you homeless or living in a [facility] (including now)?No11/01/2024Sex and Gender InformationValueDate RecordedSex Assigned at BirthNot on fileLegal YpxJygq1906/22/2022 7:05 PM EDTGender Identity Not on fileSexual KcetscidmzvWrynjwws03/24/2023 8:33 PM EDTOccupationIndustryJob Start DateJob End DateRetiredNot on fileNot on fileNot on filedocumented as of this encounter Progress Notes * Radha Weiner RN - 02/25/2025 9:10 AM EST Refill request [facility] 01/27/25 NOV 03/03/25 Advised will send to provider. Pt had requested paperwork completed 02/12 - encounter appears paperwork completed but holding onto it per note for pt to come into office for his appt to ensure he completes appt. The issue is he hada timeline to return the paperwork and now if not returned will need to start over. Advised will reach out to provider for release of paperwork. Pt has no intention of missing appt. <February 25, 2025, 11:44 - Radha Weiner, YING> Provider still wants pt to have appt before releasing paperwork back to him. States appt availability today. Call to pt he is willing to come in today. Schedule reviewed, MWV changed to today at 1:20 pm. documented in this encounter Plan of Treatment DateTypeDepartmentCare Team (Latest Contact Info)Gpumffdhape21/18/2026 10:00 AM ESTOffice Visit [facility] [address] [place] [address] Moy Villa MD [address] [place] [address] documented as of this encounter Visit Diagnoses Diagnosis Essential hypertension Unspecified essential hypertension Other chronic pain documented in this encounter Additional Health Concerns AssessmentNoted TimePHQ-9 Depression Total Score: 1:00 PM EST documented as of this encounter Care Teams Team MemberRelationshipSpecialtyStart DateEnd Date Moy Villa MD [address] [place] [address] PCP - GeneralFamily Medicine09/28/22 Moy Villa MD [address] [place] [address] PCP - [facility]01/07/23 Coral Ceballos NP [address] [place] [address] Nurse PractitionerFamily Suwcnxnt90/30/24 Radha Weiner, YING [address] [place] [address] Registered NurseFamily Medicine10/30/24documented as of this encounter
--- OUTSIDE RECORDS SUMMARY | 2025-03-05 13:33 | XMS_ITS | Encounter Summary ---
Author Organization [facility] Address [address] [place] [address] Care Team Providers Care Manager Actuarial Name Role Phone Moy Villa MD Primary Care Provider [phone] Moy Villa MD Unavailable [phone] Coral Ceballos GAS OPERATOR Unavailable [phone] Radha Weiner RN Unavailable [phone] Encounter Details DateTypeDepartmentCare Team (Latest Contact Info)Bbusshfvdtm86/19/2025Orders Only [facility] [address] [place] [address] Coral Ceballos GAS OPERATOR [address] [place] [address] Social History Tobacco UseTypesPacks/DayYears UsedDateSmoking Tobacco: FormerCigarettesQuit: [...] times a week11/01/2024How often do you attend gnosticist or yazidi services?Never11/01/2024Do you belong to any clubs or organizations such as gnosticist groups, unions, fraternal or athletic groups, or [...] have six or more drinks on one occasion?Qyvzjr4908/13/2024Overall Financial Resource Strain (CARDIA)AnswerDate RecordedHow hard is it for you to pay for the very basics like food, housing, medical care, and heating?Not hard at all 04/09/2024HQ-2AnswerDate RecordedPatient Health Questionnaire-2 Score0 02/25/2025[facility] [place] [facility] - Occupational Stress QuestionnaireAnswerDate RecordedDo you feel stress - tense, restless, nervous, or anxious, or unable to sleep at night because yourmind is troubled all the time - these days?Only a hjtand0504/09/2024Exercise Vital SignAnswerDate Recorded On average, how many [...] were you homeless or living in a fdc (including now)?No11/01/2024Sex and Gender InformationValueDate RecordedSex Assigned at BirthNot on fileLegal AhhYfki9306/22/2022 7:05 PM EDTGender Identity Not on fileSexual UhnnlcvmudoQlhytoja46/24/2023 8:33 PM EDTOccupationIndustry Job Start DateJob End DateRetiredNot on fileNot on fileNot on filedocumented as of this encounter Plan of Treatment DateTypeDepartmentCare Team (Latest Contact Info)Acwypvfrjap32/18/2026 10:00 AM ESTOffice Visit [facility] [address] [place] [address] Moy Villa MD [address] [place] [address] documented as of this encounter Procedures Procedure NamePriorityDate/TimeAssociated DiagnosisCommentsCBC (INCLUDES DIFF/PLT)Xjfdtif0502/26/2025 11:30 AM ESTPSA, TOTAL AND XAPFMdjilmp41/19/2025 11:30 AM ESTdocumented in this encounter Results * CBC and differential (02/26/2025 11:30 AM EST)Specimen (Source)Anatomical Location / LateralityCollection Method / VolumeCollection TimeReceived Time BloodVenous blood specimen / Unknown Narrative Authorizing ProviderResult TypeResult StatusJeingrid Moranuse NPLAB BLOOD ORDERABLESFinal Result * PSA, total and free (02/26/2025 11:30 AM EST)Specimen (Source)Anatomical Location / LateralityCollection Method / VolumeCollection TimeReceived Time BloodVenous blood specimen / Unknown Narrative Authorizing ProviderResult TypeResult StatusJessica R Luisause NPLAB BLOOD ORDERABLESFinal Result documented in this encounter Visit Diagnoses Not on filedocumented in this encounter Additional Health Concerns AssessmentNoted TimePHQ-9 Depression Total Score: 1:00 PM EST documented as of this encounter Care Teams Team MemberRelationshipSpecialtyStart DateEnd Date Moy Villa MD [address] [place] [address] PCP - GeneralFamily Medicine09/28/22 Moy Villa MD [address] [place] [address] PCP - ACO Reach01/07/23 Coral Ceballos NP [address] [place] [place] [address] Nurse PractitionerFamily Zjihiwyl43/30/24 Radha Weiner, YING [address] [place] [address] Registered NurseFamily Medicine10/30/24documented as of this encounter
--- OUTSIDE RECORDS SUMMARY | 2025-03-05 13:33 | XMS_ITS | Encounter Summary ---
Author Organization [facility] Address [address] [place] [address] Care Team Providers Care Slab Miller Operator Name Role Phone Moy Villa MD Primary Care Provider [phone] Moy Villa MD Unavailable [phone] Coral Ceballos PRESCHOOL ASSISTANT DIRECTOR Unavailable [phone] Radha Weiner RN Unavailable [phone] Encounter Details DateTypeDepartmentCare Team (Latest Contact Info)Bmzvkajnech43/19/2025Telephone [facility] [address] [place] [address] Stella Child MA Social History Tobacco UseTypesPacks/DayYears UsedDateSmoking Tobacco: FormerCigarettesQuit: [...] times a week11/01/2024How often do you attend sikh or latter-day services?Never11/01/2024Do you belong to any clubs or organizations such as sikh groups, unions, fraExp[employer] Entertainment or athletic groups, or school groups?Yes11/01/2024How often [...] have six or more drinks on one occasion?Dtyaad6508/13/2024Overall Financial Resource Strain (CARDIA)AnswerDate RecordedHow hard is it for you to pay for the very basics like food, housing, medical care, and heating?Not hard at all 04/09/2024HQ-2AnswerDate RecordedPatient Health Questionnaire-2 Score0 02/25/2025[facility] [place] [facility] - Occupational Stress QuestionnaireAnswerDate RecordedDo you feel stress - tense, restless, nervous, or anxious, or unable to sleep at night because yourmind is troubled all the time - these days?Only a cgpkqd0604/09/2024Exercise Vital SignAnswerDate Recorded On average, how many [...] steady place to sleep or slept in [facility] (including now)?No10/20/2022Housing Stability Vital SignAnswerDate RecordedIn the last 12 months, was there a time when you were not able to pay the mortgage or rent on time?No11/01/2024In the past 12 months, how many times have you moved where you were living? At any time in the past 12 months, were you homeless or living in a long-term (including now)?No11/01/2024Sex and Gender InformationValueDate RecordedSex Assigned at BirthNot on fileLegal GhwQeol5206/22/2022 7:05 PM EDTGender Identity Not on fileSexual AnsogvrgpoiYfdmycgj30/24/2023 8:33 PM EDTOccupationIndustryJob Start DateJob End DateRetiredNot on fileNot on fileNot on filedocumented as of this encounter Progress Notes * Radha Weiner RN - 02/26/2025 9:15 AM EST <February 26, 2025, 09:17 - Radha Weiner RN> Call to [facility] for follow up <February 26, 2025, 09:34 - Radha Weiner RN> Remain on hold <February 26, 2025, 09:40 - Radha Weiner RN> Call answered by Lance. Explained calling for follow up on a call received from Melchor Larsen NP re: pt having a diagnosis of DM Placed on hold again <February 26, 2025, 09:44 - Radha Weiner RN> Transferred to provider. She reports the question arose due to a med list that was sent and indicated his Needle use was for DM. That is incorrect information - the pt takes testosterone injections, therefore this was incorrectly marked from our office. Tuan Ceballos PRESCHOOL ASSISTANT DIRECTOR signed form. They would like an updated form that states the needles are for his testosterone injections. documented in this encounter Miscellaneous Notes * Telephone Encounter - Stella Child MA - 02/26/2025 10:17 AM EST Letter wrote faxed to number with [place]. * Telephone Encounter - Stella Child MA - 02/26/2025 8:58 AM EST Lakia Larsen PRESCHOOL ASSISTANT DIRECTOR at the [facility] stating that the form we filled out stated he has type 2 DM and is not currently taking any medications for it and was asking if he was doing diet control for his DM. Call back number [phone]. Looking through patients chart he is not a DM and the form Coral Ceballos filled out had anywhere tomark off that he was a DM. The form just asked about his medications and if he was cleared to work. Spoke with patients BARRON Garcia on what is going on and she will contact [facility]. documented in this encounter Plan of Treatment DateTypeDepartmentCare Team (Latest Contact Info)Aorbiegztro80/18/2026 10:00 AM ESTOffice Visit [facility] [address] [place] [address] Moy Villa MD [address] [place] [address] documented as of this encounter Visit Diagnoses Diagnosis Low testosterone level in male documented in this encounter Additional Health Concerns AssessmentNoted TimePHQ-9 Depression Total Score: 1:00 PM EST documented as of this encounter Care Teams Team MemberRelationshipSpecialtyStart DateEnd Date Moy Villa MD [address] [place] [address] PCP - GeneralFamily Medicine09/28/22 Moy Villa MD [address] [place] [address] PCP - ACO Reach01/07/23 Coral Ceballos PRESCHOOL ASSISTANT DIRECTOR [address] [place] [address] Nurse PractitionerFami Urpjrnlf72/30/24 Radha Weiner, YING [address] [place] [address] Registered NurseFamily Medicine10/30/24documented as of this encounter
--- OUTSIDE RECORDS SUMMARY | 2025-03-05 13:33 | XMS_ITS | Encounter Summary ---
Author Organization [facility] Address [address] [place] [address] Care Team Providers Care Dry Cleaner Apprentice Name Role Phone Moy Villa MD Primary Care Provider [phone] Moy Villa MD Unavailable [phone] Coral Ceballos MOTORIZED SQUAD LIEUTENANT Unavailable [phone] Radha Weiner RN Unavailable [phone] Encounter Details DateTypeDepartmentCare Team (Latest Contact Info)Ryclcsljxav02/13/2025bstract [facility] [address] [place] [address] Moy Villa MD [address] [place] [address] Social History Tobacco UseTypesPacks/DayYears UsedDateSmoking Tobacco: FormerCigarettesQuit: [...] week11/01/2024How often do you attend christianity or methodist services?Never11/01/2024Do you belong to any clubs or [...] have six or more drinks on one occasion?Ferwim2608/13/2024Overall Financial Resource Strain (CARDIA)AnswerDate RecordedHow hard is it for you to pay for the very basics like food, housing, medical care, and heating?Not hard at all 04/09/2024HQ-2AnswerDate RecordedPatient Health Questionnaire-2 Score0 12/16/2024[facility] [place] of Occupational Health - Occupational Stress QuestionnaireAnswerDate RecordedDo you feel stress - tense, restless, nervous, or anxious, or unable to sleep at night because yourmind is troubled all the time - these days?Only a dclpte3304/09/2024Exercise Vital SignAnswerDate Recorded On average, how many [...] steady place to sleep or slept in [facility] (including now)?No10/20/2022Housing Stability Vital SignAnswerDate RecordedIn the last 12 months, was there a time when you were not able to pay the mortgage or rent on time?No11/01/2024In the past 12 months, how many times have you moved where you were living? At any time in the past 12 months, were you homeless or living in a care home (including now)?No11/01/2024Sex and Gender InformationValueDate RecordedSex Assigned at BirthNot on fileLegal WdoKmon9506/22/2022 7:05 PM EDTGender Identity Not on fileSexual DlwitarczajTgzspgbp00/24/2023 8:33 PM EDTOccupationIndustryJob Start DateJob End DateRetiredNot on fileNot on fileNot on filedocumented as of this encounter Plan of Treatment DateTypeDepartmentCare Team (Latest Contact Info)Yrvfylubkmh70/18/2026 10:00 AM ESTOffice Visit [facility] [address] [place] [address] Moy Villa MD [address] [place] [address] documented as of this encounter Visit Diagnoses Not on filedocumented in this encounter Additional Health Concerns AssessmentNoted TimePHQ-9 Depression Total Score: 10:31 AM EDT documented as of this encounter Care Teams Team MemberRelationshipSpecialtyStart DateEnd Date Moy Villa MD [address] [place] [place] [address] PCP - GeneralFamily Medicine09/28/22 Moy Villa MD [address] [place] [address] PCP - ACO Reach01/07/23 Coral Ceballos, MOTORIZED SQUAD LIEUTENANT [address] [place] [address] Nurse PractitionerFamily Efzlbtdm44/30/24 Radha Weiner RN [address] [place] [address] Registered NurseFamily Medicine10/30/24documented as of this encounter
--- OUTSIDE RECORDS SUMMARY | 2025-03-05 13:33 | XMS_ITS | Encounter Summary ---
Author Organization [facility] Address [address] [place] [address] Care Team Providers Care Parts Room Clerk Name Role Phone Moy Villa MD Primary Care Provider [phone] Moy Villa MD Unavailable [phone] Coral Ceballos DIGITAL FORENSICS EXAMINER Unavailable [phone] Radha Weiner RN Unavailable [phone] Reason for Visit * ReasonOnset DateCommentsMed Xfzhwe4302/24/2025 Encounter Details DateTypeDepartmentCare Team (Latest Contact Info)Brxidcfoxrs38/17/2025Refill [facility] [address] [place] [address] Coral Ceballos, DIGITAL FORENSICS EXAMINER [address] [place] [address] Low libido Social History Tobacco UseTypesPacks/DayYears UsedDateSmoking Tobacco: FormerCigarettesQuit: [...] times a week11/01/2024How often do you attend moravian or roman catholic services?Never11/01/2024Do you belong to any clubs or organizations such as moravian groups, unions, fraternal or athletic groups, or [...] have six or more drinks on one occasion?Mkywit3208/13/2024Overall Financial Resource Strain (CARDIA)AnswerDate RecordedHow hard is it for you to pay for the very basics like food, housing, medical care, and heating?Not hard at all 04/09/2024HQ-2AnswerDate RecordedPatient Health Questionnaire-2 Score0 02/25/2025[facility] [place] of Occupational Health - Occupational Stress QuestionnaireAnswerDate RecordedDo you feel stress - tense, restless, nervous, or anxious, or unable to sleep at night because yourmind is troubled all the time - these days?Only a bnaqih93/31/2024Exercise Vital SignAnswerDate Recorded On average, how many [...] were you homeless or living in a longterm (including now)?No11/01/2024Sex and Gender InformationValueDate RecordedSex Assigned at BirthNot on fileLegal TbhInpw3706/22/2022 7:05 PM EDTGender Identity Not on fileSexual EwvpxuuybikYlbqahan81/24/2023 8:33 PM EDTOccupationIndustryJob Start DateJob End DateRetiredNot on fileNot on fileNot on filedocumented as of this encounter Miscellaneous Notes * Telephone Encounter - Natalie Mackay MA - 02/25/2025 8:07 AM EST [place]: 01/27/2025 NOV: 03/03/2025 documented in this encounter Plan of Treatment DateTypeDepartmentCare Team (Latest Contact Info)Clhqtyeuubt22/18/2026 10:00 AM ESTOffice Visit [facility] [address] [place] [address] Moy Villa MD [address] [place] [address] documented as of this encounter Visit Diagnoses Diagnosis Low libido documented in this encounter Additional Health Concerns AssessmentNoted TimePHQ-9 Depression Total Score: 10:31 AM EDT documented as of this encounter Care Teams Team MemberRelationshipSpecialtyStart DateEnd Date Moy Villa MD [address] [place] [address] PCP - GeneralFamily Medicine09/28/22 Moy Villa MD [address] [place] [address] PCP - ACO [facility]01/07/23 Coral Ceballos NP [address] [place] [address] Nurse PractitionerFamily Idsedrea46/30/24 Radha Weiner, YING [address] [place] [address] Registered NurseFamily Medicine10/30/24documented as of this encounter
--- NOTE | 2025-03-05 14:23 | PM.PRESUREVA ---
History of Present Illness History of Present Illness Chief complaint: Elevated PSA, Prostate lesion on MRI Narrative: Patient presents for presurgical testing accompanied by his . The patient reports an elevated PSA. He states about 2 months ago he was having difficulty with urination, urinary retention, urgency, frequency, and constipation. He states his symptoms have improved at this time. He denies dysuria, hematuria, abdominal pain, nausea, vomiting, fever, or any other complaints. Review of Systems ROS Narrative REVIEW OF SYSTEMS: Negative except as stated in HPI, ten or more systems reviewed. Constitutional: No fever, chills, weakness ENT: No sore throat or epistaxis Cardiovascular: No edema, chest pain, palpitations, or activity intolerance Respiratory: No shortness of breath, cough, or wheezing Musculoskeletal: No joint pain or swelling Gastrointestinal: No abdominal pain, constipation, diarrhea, or vomiting Genitourinary: No dysuria or hematuria Neurological: No numbness, tingling, weakness, or headache Psychiatric: No mood changes [facility] Medical History (Updated 03/05/25 @ 14:00 by Halima Bolden NP) Arthritis ?M19.90 - Unspecified osteoarthritis, unspecified site (ICD-10) Low iron ?E61.1 - Iron deficiency (ICD-10) Anxiety ?F41.9 - Anxiety disorder, unspecified (ICD-10) Constipation ?K59.00 - Constipation, unspecified (ICD-10) Myocardial infarction ?I21.9 - Acute myocardial infarction, unspecified (ICD-10) Anemia ?D64.9 - Anemia, unspecified (ICD-10) Sleep apnea ?G47.30 - Sleep apnea, unspecified (ICD-10) Prostatitis ?N41.9 - Inflammatory disease of prostate, unspecified (ICD-10) Osteoarthritis ?M19.90 - Unspecified osteoarthritis, unspecified site (ICD-10) Back pain ?M54.9 - Dorsalgia, unspecified (ICD-10) Incomplete bladder emptying ?R33.9 - Retention of urine, unspecified (ICD-10) Erectile dysfunction ?N52.9 - Male erectile dysfunction, unspecified (ICD-10) BPH with obstruction/lower urinary tract symptoms ?N40.1 - Benign prostatic hyperplasia with lower urinary tract symptoms (ICD-10) ?N13.8 - Other obstructive and reflux uropathy (ICD-10) Asymptomatic microscopic hematuria ?R31.21 - Asymptomatic microscopic hematuria (ICD-10) Anticoagulated ?Z79.01 - terminal system operator (current) use of anticoagulants (ICD-10) Hyperlipidemia ?E78.5 - Hyperlipidemia, unspecified (ICD-10) Hypertension ?I10 - Essential (primary) hypertension (ICD-10) CAD (coronary artery disease) ?I25.10 - Atherosclerotic heart disease of [place] coronary artery without angina pectoris (ICD-10) Lesion of prostate ?N42.9 - Disorder of prostate, unspecified (ICD-10) Elevated PSA ?R97.20 - Elevated prostate specific antigen [PSA] (ICD-10) Surgical History (Updated 03/05/25 @ 14:11 by Halima Bolden NP) S/P cervical spinal fusion ?Z98.1 - Arthrodesis status (ICD-10) History of penile implant ?Z96.0 - Presence of urogenital implants (ICD-10) History of surgical removal of skin lesion ?Z98.890 - Other specified postprocedural states (ICD-10) ?Z87.2 - Personal history of diseases of the skin and subcutaneous tissue (ICD-10) History of arthroplasty of knee ?Z96.659 - Presence of unspecified artificial knee joint (ICD-10) History of heart artery stent ?Z95.5 - Presence of coronary angioplasty implant and graft (ICD-10) H/O right inguinal hernia repair ?Z98.890 - Other specified postprocedural states (ICD-10) ?Z87.19 - Personal history of other diseases of the digestive system (ICD-10) H/O prostate biopsy ?Z98.890 - Other specified postprocedural states (ICD-10) H/O cystoscopy ?Z98.890 - Other specified postprocedural states (ICD-10) H/O arthroscopy of shoulder ?Z98.890 - Other specified postprocedural states (ICD-10) History of cardiac catheterization ?Z98.890 - Other specified postprocedural states (ICD-10) S/P arterial stent ?Z95.9 - Presence of cardiac and vascular implant and graft, unspecified (ICD-10) Family History (Updated 03/05/25 @ 13:54 by Halima Bolden NP) Other Family history of aneurysm Family history of cancer Family history of heart disease Family history of hypertension Family history of myocardial infarction Social History (Updated 03/05/25 @ 13:50 by Halima Bolden NP) Within the past year, how often did you have a drink containing alcohol: monthly or less Smoking status: Former smoker Non-prescribed substance use: denies use Highest level of school completed/degree received: high school graduate Meds Home Medications and Allergies Home Medications ?Medication ?Instructions ?Recorded ?Confirmed ?Type atorvastatin 20 mg tablet 20 mg PO DAILY 03/05/25 03/05/25 History cholecalciferol (vitamin D3) 125 125 mcg PO DAILY 03/05/25 03/05/25 History mcg (5,000 unit) capsule duloxetine 30 mg capsule,delayed 30 mg PO BID 03/05/25 03/05/25 History release eszopiclone 3 mg tablet (Lunesta) 3 mg PO QPM 03/05/25 03/05/25 History ferrous sulfate 325 mg (65 mg 325 mg PO DAILY 03/05/25 03/05/25 History iron) tablet fiber 625 tab PO DAILY 03/05/25 03/05/25 History metoprolol succinate 25 mg 25 mg PO DAILY 03/05/25 03/05/25 History tablet,extended release 24 hr omega-3 fatty acids 500 mg PO DAILY 03/05/25 03/05/25 History pregabalin 200 mg capsule (Lyrica) 200 mg PO BID 03/05/25 03/05/25 History tamsulosin 0.4 mg capsule 0.4 mg PO BID 03/05/25 03/05/25 History testosterone cypionate 200 mg/mL 200 mg IM .Q4 Weeks 03/05/25 03/05/25 History intramuscular oil vitamin B complex 1 tab PO DAILY 03/05/25 03/05/25 History zinc 50 mg capsule 50 mg PO DAILY 03/05/25 03/05/25 History Allergies Allergy/AdvReac Type Severity Reaction Status Date / Time hydrocodone Allergy itching Verified 03/05/25 13:36 Exam Narrative Exam Narrative: Constitutional: Awake, alert, comfortable, well-appearing, nontoxic, interactive, vital signs as charted Head: Normocephalic, atraumatic Neck: Supple, normal appearance, normal range of motion, no meningeal signs, no lymphadenopathy Respiratory: No respiratory distress, breath sounds clear Cardiovascular: Regular rate and rhythm, strong and regular heart tones Abdomen: Nontender, normal bowel sounds, soft, no CVA tenderness Musculoskeletal: Normal gait, no swelling or edema Skin: No rashes or induration, no lesions, only visible skin inspected Neuro: No neurological deficits, normal sensation Psychiatric: Oriented ?3, normal affect Assessment and Plan Assessment and Plan (1) Elevated PSA: (2) Lesion of prostate: Plan Transperineal MRI prostate fusion biopsy scheduled with Dr. Wakefield March 11, 2025.
[2025-03-05 14:36] LABS: INR 1.04; Partial Thromboplastin Time 25.2 sec (22.3-36.2); Prothrombin Time 11.0 sec (9.0-11.6)
[2025-03-05 14:47] LABS: Anion Gap 8.3; Blood Urea Nitrogen 15.0 mg/dL (7.0-18.0); Calcium 8.9 mg/dL (8.5-10.1); Carbon Dioxide 31.5 mmol/L (21.0-32.0); Chloride 102 mmol/L (98-107); Estimated GFR (African America >60 (>=60 mL/min/1.73m^2); Estimated GFR (Non-African Ame >60 (>=60 mL/min/1.73m^2); Glucose 105 mg/dL (74-106); Potassium 4.8 mmol/L (3.5-5.1); Sodium 137 mmol/L (136-145)
[2025-03-05 15:38] LABS: Hematocrit 43.9 % (42.0-54.0); Hemoglobin 14.1 g/dL (14.0-18.0); Immature Granulocytes Abs Auto 0.02 10^3/uL (0.00-0.03); Immature Granulocytes Pct Auto 0.3 % (0.0-0.5); Lymphocytes Absolute Auto 2.7 10^3/uL (1.2-3.8); Mean Corpuscular HGB Conc 32.1 g/dL (29.9-35.2); Mean Corpuscular Hemoglobin 27.4 pg (25.9-34.0); Mean Corpuscular Volume 85.4 fL (80.0-94.0); Platelet Count 158 10^3/uL (150-450); Red Blood Count 5.14 10^6/uL (4.70-6.10); White Blood Count 6.9 10^3/uL (4.0-11.0)
== END 2025-03-05 13:27 | disposition home or self-care (01) ==
PROVIDERS: PCP Family Medicine; Visit Provider Urology
DX: Z01.812 Encounter for preprocedural laboratory examination (principal); Z01.818 Encounter for other preprocedural examination; R97.20 Elevated prostate specific antigen [PSA]
CPT/HCPCS: 36415; 71046; 80048; 85025; 85610; 85730; G0463

== ENCOUNTER 2025-03-11 09:08 | Day surgery (SDC) | payer MEDICARE, OTHER, SELFPAY ==
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
[2025-03-05 14:08] VITALS: BP 121/73; PULSE 68; TEMP 36.2; O2SAT 97; BMI 32.5
--- OUTSIDE RECORDS SUMMARY | 2025-03-07 19:12 | XMS_ITS | Continuity of Care Document ---
Author Organization [facility] Address [address] [place] [address] Phone Care Team Providers Care Technical Trainer Name Role Phone Moy Villa MD Primary Care Provider [phone] Moy Villa MD Attending Provider Norman Wakefield MD Attending Provider Tevin Lake DO Attending Provider Care Teams Patient Care Team Team Status: Active Member Role/Relationship Status Dates Moy Villa MD Primary Care Provider Active Visit Care Team Team Status: Inactive Member Role/Relationship Status Dates Moy Villa MD Primary Care Provider Active S tart: January 20, 2025 End: January 20Stacey Redman ProviderActiveStart: January 20, 2025 End: January 20, 2025 Visit Care Team Team Status: Inactive Member Role/Relationship Status Dates Moy Villa MD Primary Care Provider Active S tart: February 27, 2025 End: February 27, 2025Stacey Kline ProviderActiveStart: February 27, 2025 End: February 27, 2025 Visit Care Team Team Status: Inactive Member Role/Relationship Status Dates Moy Villa MD Primary Care Provider Active S tart: March 07, 2025 End: March 07, 2025Tevin Lake DOAttdarryn ProviderActiveStart: March 07, 2025 End: March 07, 2025 Chief Complaint and Reason for Visit Chief Complaint Admit Date i73.9 i10 m54.16 e55.9 e78.00 r68.82 Oct azalia 2024 7:49am R97.20 February 27, 2025 7:38am M47.816 March 07, 2025 9:38am Allergies, Adverse Reactions, Alerts Allergen Type Severity Reaction Last Updated Verified Status acetaminophen Allergy Unknown Itching February 28, 2024 2:36pm Yes Active hydrocodone Allergy Unknown Itching February 28, 2024 2:36pm Y es Active Social History Smoking Status Status Start Date End Date Date of Observa tion Never smoked tobacco (finding) September 18, 2023 8:55am Observation Status Observation Response Date of Response Legal Sex Male (finding) [facility] 1955 Family History Relationship Condition Age at Onset Recorded Date/T marleny father Malignant neoplasm Unknown motherAbdominal aortic aneurysm (AAA)UnknownAbnormality of breathingUnknown brotherFamily history of mental disorderUnknownfatherMalignant neoplasmUnknown fatherMalignant neoplasmUnknownmotherHearing lossUnknownsisterFamily history of mental disorderUnknownDepressionUnknown Problems Active Problems Problem Diagnosis/Recorded Date Onset Date Stat us Generalized anxiety disorder September 19, 2023 1:07pm Un known Active Laceration September 18, 2018 3:31pm Unknown Activ e Pure hypercholesterolemia September 19, 2023 1:07pm Unkno wn Active Medications Medication Status Dose Units Route Directions Qty Days Refills S tart Date Stop Date End Date Reason(s) Instructions Adherence Prednisone 20 mg tablet Active 40 MG PO Daily 12 0December 2023 12:00amUnknownMetoprolol Succinate 50 mg tablet extended release 24 tpYqtxjk45APXCVhnhgAzlyjhc 2022 12:00amUnknownTamsulosin 0.4 mg capsuleActive0.4MGPODailyJanuary 2022 12:00amUnknownTadalafil 5 mg tablet Inlbxw5EDSJCypgvZftoyqw 2022 12:00amUnknownPregabalin 50 mg CapsuleActive 50MGPODailyJanuary 2022 12:00amUnknownAtorvastatin 20 mg ctlwfdOxqzks00TL PODailyJun2018 11:00pmUnknownMeloxicam 15 mg gmtsbeGinluhmvecgw41VNUY DailySeptember 17, 2018 11:00pmOct2023 9:07amGabapentin 800 mg tablet Rewiqutrfzxn365JBFJAajyq dailySeptember 17, 2018 11:00pmJanuary 2022 7:24am Lisinopril 10 mg zrpvvaKjiadtzjprkt66LRPVVufhcVasf 10th, 2019 11:00pmJanuary 2022 7:24amAspirin 81 mg Tablet,KhuumjvgOexmta37TNDBNcjdaYfhs 10th, 2019 11:00pmUnknownDuloxetine 60 mg capsule,delayed release(DR/EC)Xulqig38PZWWWdlbd September 17, 2018 11:00pmUnknown Immunizations Immunization Event Date Not Given Reason Dose Number 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 Lot Number Reason(s) Given Vaccine Information Statement (VIS) Detail Administration Location COVID-19 mRNA, Comirnaty (Pfizer) January 13 021 Tetanus, Diphtheria, Pertussis (Tdap)September 18, [id number] Procedures Procedure Date Performed Status MR lumbar spine wo con March 07, 2025 12:00 am completed MR prostate wo/w con February 27, 2025 7:52am completed Relevant Diagnostic Tests and/or Laboratory Data Laboratory Results Test Collection Date/Time Result Date/Time Result Interpretation Reference Range Result Comment Performing Site Corrected White Blood Count January 20, 2025 7:03am January 20, 2025 11:03am 14.1 10*3/uL Above high normal 4.1-10.5 [facility] [id number] [address] [facility] [address]Lscsezqgcic WBC CountOctober 2024 7:03amOctober 2024 11:03am14.1 10*3/uLAbove high normal4.1-10.5[facility] [id number] [address] [facility] 98652Spd Blood CountOctober 2024 7:03amOctober 2024 11:03am5.09 10*6/uL3.90-5.60[facility] [id number] [address] [facility] 21186KnqpwrwsjoBrwghbe 2024 7:03amOctober 2024 11:03am 13.1 g/dL13.0-17.0[facility] [id number] [address] [facility] 96535WjloxuthihIamdljt 2024 7:03amOct2024 11:03am 40.2 %38.8-50.0[facility] [id number] [address] [facility] 24575Ybnn Corpuscular VolumeOctober 2024 7:03amOctober 2024 11:03am79.0 fLBelow low gfdqri99.5-101[facility] [id number] [address] [facility] 806[address]Rdob Corpuscular HemoglobinOctober 2024 7:03amOctober 2024 11:03am25.7 pgBelow low kqzadx71.5-35.2[facility] [id number] [address] [facility] 13520Wxev Corpuscular Hemoglobin ConcentOctober 2024 7:03am January 20, 2025 11:03am32.5 g/dL32.5-35.6[facility] [id number] [address] [facility] [address]Fdt Cell Distribution WidthOctober 2024 7:03amOctober 2024 11:03am19.5 %Above high dptanq69.0-14.8[facility] [id number] [address] [facility] 68162Utgnronr CountOctober 2024 7:03amOctober 2024 11:62fn513 10*3/iG570-441DamxvygeiMiami Valley Hospital [facility] [id number] [address] [facility] 66846Uxrz Platelet VolumeOctober 2024 7:03amOctober 2024 11:03am8.[address] [facility] [id number] [address] [facility] 75510Xqmcfteengg (%) (Auto)January 20, 2025 7:03amOctober 2024 11:03am74.2 %.[facility] [id number] [address] [facility] 557[address]Apjejyyeyui (%) (Auto)January 20, 2025 7:03amOctober 2024 11:03am15.9 %.[facility] [id number] [address] [facility] 65105Ixhpzsxjd (%) (Auto)January 20, 2025 7:03amOctober 2024 11:03am9.0 %.[facility] [id number] [address] [facility] 72393Kvabthfqtmk (%) (Auto)January 20, 2025 7:03amOctober 2024 11:03am0.6 %.[facility] [id number] [address] [facility] 69866Tmwqgslmi (%) (Auto)January 20, 2025 7:03amOctober 2024 11:03am0.3 %.[facility] [id number] [address] [facility] 20854Lsehggbzx RBC Relative Count (auto)January 20, 2025 7:03am January 20, 2025 11:03am0.0 /100{WBC}0-0.5FW[facility] [id number] [address] [facility] 85503Xnoocnsyidm # (Auto)January 20, 2025 7:03amOctober 2024 11:03am10.5 10*3/uLAbove high normal1.8-7.7FW[facility] [id number] [address] [facility] 44[address]Sxpfqnoicpb # (Auto)January 20, 2025 7:03amOctober 2024 11:03am2.3 10*3/uL1.00-4.8[facility] [id number] [address] [facility] 57081Jzicabndc # (Auto)January 20, 2025 7:03amOctober 2024 11:03am1.3 10*3/uLAbove high normal0.0-0.8[facility] [id number] [address] [facility] 32516Vnjobhdnkow # (Auto)January 20, 2025 7:03amOctober 2024 11:03am0.1 10*3/uL0.0-0.45[facility] [id number] [address] 3598770Basophils # (Auto)January 20, 2025 7:03amOctober 2024 11:03am0.0 10*3/uL0.0-0.2FW[facility] [id number] [address] [facility] 717[address]Wfoijax LevelOctober 2024 7:03amOctober 2024 11:21am98 mg/vS50-251SQW recommended reference rangeRandom Glucose Reference Range is dependent on time and content of last meal. Glucose of more than 200 mg/dL in a nonstressed, ambulatory subject supports the diagnosisof Diabetes Mellitus.[facility] [id number] [address] [facility] 446[address]Dvpvd Urea NitrogenOctober 2024 7:03amOctober 2024 11:21am15 mg/dL7-25[facility] [id number] [address] 3598770CreatinineOctober 2024 7:03amOctober 2024 11:21am 1.10 mg/dL0.70-1.30[facility] [id number] [address] [facility] 21016Ikuggzmzp GFR (CKD-EPI)January 20, 2025 7:03amOctober 2024 11:21am> 60.0 mL/MinMiami Valley Hospital [facility]tr [id number] [address] 3598770Sodium LevelOctober 2024 7:03amOctober 2024 11:21am 137 mmol/Z807-236XezfkygeoMiami Valley Hospital [facility] [id number] [address] 3598770Potassium LevelOctober 2024 7:03amOctober 2024 11:21am4.4 mmol/L3.5-5.1FW[facility] [id number] [address] [facility] 95405Jptohcdr LevelOctober 2024 7:03amOctober 2024 11:21am99 mmol/B02-897ZtuqaexgjMiami Valley Hospital [facility] [id number] [address] [facility] 57443Dayuwq Dioxide LevelOctober 2024 7:03amOctober 2024 11:21am31.1 mmol/LAbove high unhaws44.0-31.0[facility] [id number] [address] [facility] 73375Obnxv GapOctober 2024 7:03amOctober 2024 11:21am 11.3 mEq/L6.0-15.0[facility] [id number] [address] [facility] 07353Lhazonz LevelOctober 2024 7:03amOctober 2024 11:21am9.0 mg/dL8.6-10.3FW[facility] [id number] [address] [facility] 94895Zvbzbqmeh LevelOctober 2024 7:03amOctober 2024 11:21am2.4 mg/dL1.9-2.7FW[facility] [address] [facility] [id number] [address] [facility] 54533Etxqv ProteinOctober 2024 7:03amOctober 2024 11:21am7.0 g/dL6.4-8.9[facility] [id number] [address] [facility] 34116BdblrloCyvoalc 2024 7:03amOctober 2024 11:21am3.9 g/dL3.5-5.7FW[facility] [id number] [address] [place] [address] 41317KdsfjjxuDonqpmk 2024 7:03amOctober 2024 11:21am3.1 g/dLMiami Valley Hospital [facility] [id number] [address] [facility] 45556Grmpfqp/Globulin RatioOct2024 7:03amOct2024 11:21am1.3[address] [facility] [id number] [address] [facility] 88993Kkqjx BilirubinOct2024 7:03amOct2024 11:21am0.7 mg/dL0.3-1.0[facility] [id number] [address] [facility] 04956Jbxrwxsnk Amino Transf (AST/SGOT)January 20, 2025 7:03am January 20, 2025 11:21am15 U/S03-20QwbvaoongMiami Valley Hospital Ctr [id number] [address] [place] [address] 74421Zdebudd Aminotransferase (ALT/SGPT)January 20, 2025 7:03am January 20, 2025 11:21am15 U/L7-52[facility] [id number] [address] [place] [address] 94155Fhkbitqc PhosphataseOct2024 7:03amOct2024 11:21am97 U/A88-699XesvxlbhhMiami Valley Hospital [facility]tr [id number] [address] [place] [address] 83711Ulmd AcidOct2024 7:03amOct2024 11:21am4.8 mg/dL4.4-7.6FWil[facility] [address] [facility] [id number] [address] [place] [address] 24537Mlnv LevelOctober 2024 7:03amOct2024 11:21am17 ug/dLBelow low dcjbon10-887TulccidndMiami Valley Hospital Ctr [id number] [address] [place] [address] 50572Engkv Iron Binding CapacityOctober 2024 7:03amOct2024 11:74ah201 ug/mG252-457WsvzzttyoMiami Valley Hospital [facility] [id number] [address] [place] [address] 36891Ycmw SaturationOctober 2024 7:03amOctober 2024 11:21am5.1 %Below low -46AbbwjqzjiMiami Valley Hospital Ctr [id number] [address] [place] [address] 35621YfhapdajafnFlfrmpd 2024 7:03amOctober 2024 11:21am 239 mg/nD341-757OobsgwwxcMiami Valley Hospital [facility] [id number] [address] [facility] 80579Hpgyqewitqb LevelOctober 2024 7:03amOctober 2024 11:87vp835 mg/dLBelow low -820Kbwb less than 200 mg/dl low riskChol 201-239 mg/dl borderline riskChol 240 mg/dl and greater high riskMiami Valley Hospital Ctr [id number] [address] [facility] 08246VSG CholesterolOctober 2024 7:03amOctober 2024 11:21am39 mg/bJ95-99MBE CHOL ATP-III CLASSIFICATION Cardiovascular RiskHDL > or equal to 60 mg/dL LOWHDL < 40 mg/dL HIGHMiami Valley Hospital Ctr [id number] [address] [facility] 21606Wpseysiiwtozw LevelOctober 2024 7:03amOctober 2024 11:21am93 mg/dL0-149TRIG ATP III CLASSIFICATIONTRIG less than 150 mg/dL NormalTRIG 150-199 mg/dL Borderline highTRIG 200-500 mg/dL High TRIG greater than 500 mg/dL Very highStandard traceable to the Center for Disease Conrtrol and Prevention (CDC) test method.[facility] [id number] [address] [facility] 12323BSR Cholesterol, CalculatedOctober 2024 7:03amOctober 2024 11:21am61 mg/dL0-100LDL ATP III CLASSIFICATIONLDL less than 100 mg/dL OptimalLDL 100-129 mg/dL Near or above qwzumpfSNM563-405 mg/dL Borderline highLDL 160-189 mg/dL HighLDL greater than 189 mg/dL Very highMiami Valley Hospital Ctr [id number] [address] [facility] 33077KSZR CholesterolOctober 2024 7:03amOctober 2024 11:21am18 mg/dLMiami Valley [facility] [id number] [address] [facility] 10569Nwkotsjggsw/HDL RatioOctober 2024 7:03amOctober 2024 11:21am3.1<5.0[facility] [id number] [address] [facility] 11253Hlgdxbct Specific Antigen ScreenOctober 2024 7:03am January 20, 2025 12:02pm97.960 ng/mLAbove high normal0.000-4.000Serial tumor marker results determined by assays using different manufacturers or methods may not be comparable.[facility] Laboratory marketing co op and method:Smart Education DXI, CHEMILUMINESCENT IMMUNOASSAY.[facility] [id number] [address] [facility] 52903Ikqsqmg Stimulating Hormone 3rd GenOctober 2024 7:03am January 20, 2025 11:36am1.98 u[iU]/mL0.45-5.33[facility] [id number] [address] [facility] 2734299-Vvhuhqz Vitamin D TotalOctober 2024 7:03amOctober 2024 11:48am87.3 ng/eN20-310YYHYFRS D STATUS 25(OH)VITAMIN D RANGE (ng/mL) Deficient <20 Insufficient 20 to <30Sufficient 30 to 100Reference: Chester MF,Speedy NC, Noemy AMAYA, et al. Evaluation,treatment, and prevention of vitamin D deficiency; an Endocrine Society clinical practice guideline. JCEM. 2010; 96(7):1911-30.[facility] [id number] [address] [facility] 26636Lkvympsu Creatinine Clearance (ChemOctober 2024 7:03am January 20, 2025 11:21amN/AFFirelands [facility] [id number] [address] [facility] 07483Chigpawljnyk (ng/dl)January 20, 2025 7:03amOctober 2024 2:30ez909 ng/dLBelow low gucwvw113-954Mjwrn male reference interval is based on a population ofhealthy nonobese males (BMI <30) between 19 and 39 yearsold. Haley et.al. JCEM 2017,102;7350-1510. PMID:47447475.[facility] Free TestosteroneOctober 2024 7:03amOct2024 2:07am3.0 pg/mL Below low normal6.6-18.1Performed at: [address] [id number] Director: Sergio Fox PhD, Phone: [phone] at: [address] [id number] Director: Siddhartha Lomeli MD, Phone: [phone] FactorOctober 2024 7:03amOctober 2024 2:36am 22.0 [IU]/mLAbove high normal<14.0Performed at: [address] [id number] Director: Sergio Fox PhD, Phone: [phone] [facility] Antibody ScreenOctober 2024 7:03am January 21, 2025 4:08pmNegative.Negative <1:80 Borderline 1:80 Positive >1:80ICAP nomenclature: AC-0For more information about Hep-2 cell patterns useANApatterns.org, the official website for theInternational Consensus on Anti nuclear Antibody (MALCOLM)Patterns (ICAP).Performed at: [id number] Director: Sergio Fox PhD, Phone: [phone] Ab Homogeneous PatternOctober 2024 7:03amOctober 2024 7:03amN/ALabCorp Diagnostic Imaging Reports Author Feroz Hartmann [facility] HospitalReport Date/TimeNovember 2024 1:09pm [facility] Main [address] [address] MRI Report Signed Patient: Rob Hernandez MR#: [id number] : 1955 Acct:[id number] Age/Sex: 69 / M ADM Date: 5 Loc: [facility] Room: Type: [facility] Attending Dr: Tevin Lake DO Copies to: Tevin Lake DO~ Ordering Provider: Tevin Lake DO Date of Service: 03/07/25 MR/MR lumbar spine wo con: M47.816 MR lumbar spine wo con 03/07/2025 10:34 AM SIGNS AND SYMPTOMS: Low back pain PROTOCOL: Multiplanar multisequence MR images of the lumbar spine without IV contrast COMPARISON: 03/31/2014 FINDINGS: The bones of the lumbar spine are in anatomic alignment. There is preservation of vertebral body. There is moderate to severe disc height loss atL4-5 and L5-S1. There is mild disc height loss throughout otherwise. There is Modic type I endplate edema at L4-5 and to lesser extent at L3-L4.Modic type II fatty endplate degenerative changes are noted at L5-S1. The conus terminatesat the inferior endplate of the L1 vertebral body level. No epidural or paraspinous fluid collection is appreciated. At T12-L1: There is left-sided facet hypertrophy. There is mild left neural foraminal narrowing with no significant spinal canal stenosis. This is unchanged. At L1-L2: There is a broad-based disc bulge. There is facet hypertrophy with ligamentum flavum thickening. There is mild spinal canal narrowing with mild bilateral neural foraminal narrowing. This isunchanged. At L2-L3: There is a broad-based disc bulge with facet hypertrophy and ligamentum flavum thickening. There is moderate spinal canal stenosis with mildbilateral neural foraminal narrowing. This is relatively unchanged. At L3-L4: There is a broad-based disc bulge with facet hypertrophy and worseningligamentum flavum thickening. There is moderate to severe spinal canal stenosiswith moderate right and mild left neuralforaminal narrowing. This is worse when compared to the prior exam. At L4-L5: There is a circumferential disc bulge with facet hypertrophy and ligamentum flavum thickening. There is severe spinal canal stenosis with mild left and moderate to severe right neural foraminal narrowing with mild mass effect on the exiting right L4 nerve roots. This is slightly worse when compared to the prior exam. At L5-S1: There is a broad-based disc bulge with facet hypertrophy and endplate osteophyte formation. There is moderate to severe left and moderate right neural foraminal narrowing with mild mass effect on the exiting left L5 nerve roots. This is slightly worse. MR/MR lumbar spine wo con IMPRESSION: At L3-L4: There is a broad-based disc bulge with facet hypertrophy and worseningligamentum flavum thickening. There is moderate to severe spinal canal stenosiswith moderate right and mild left neuralforaminal narrowing. This is worse when compared to the prior exam. At L4-L5: There is a circumferential disc bulge with facet hypertrophy and ligamentum flavum thickening. There is severe spinal canal stenosis with mild left and moderate to severe right neural foraminal narrowing with mild mass effect on the exiting right L4 nerve roots. This is slightly worse when compared to the prior exam. At L5-S1: There is a broad-based disc bulge with facet hypertrophy and endplate osteophyte formation. There is moderate to severe left and moderate right neural foraminal narrowing with mild mass effect on the exiting left L5 nerve roots. This is slightly worse. Impression dictated by: Feroz Hartmann M.D. 03/07/2025 1:09 PM Dictation Location: [facility]--24 Transcribed By: [facility] 03/07/25 1309 Dictated By: Feroz Hartmann II, MD 03/07/25 1302 Signed By: <Electronically signed by Feroz Hartmann II, MD in [place]> 03/07/25 1309 Vital Signs Vital Reading Result Reference Range Collection Date/Time Height 68 [in_i] February 27, 2025 7:10nxJskojg99.71 kgNov2024 7:23am Advance Directives Advance Directive Response Recorded Date/ Time Advance Directives No September 17 7:55am Insurance Providers Guarantor Rob Hernandez Address [address] [facility] [address]Xvieozx Info.Home Phone: Payer Group Member ID Coverage Type Subscriber Relationship to Subscriber Effective Date Expiration Date MMO Id: [id number] A Reel Id: [id number] [address] [facility] [address] Home Phone: Email: [email or web address] A Reel Id: [id number] [address] [facility] [address] Home Phone: Email: [email or web address] CenterfVytRivers[facility] [id number] A Reel Id: [id number] [address] [facility] [address] Home Phone: Email: [email or web address] Insurance [facility] [address] [address] [place] [address] Work Phone: retired Id: [id number] [employer] Retired Id: [id number] A Reel Id: [id number] [address] [facility] [address] Home Phone: Email: [email or web address] Encounters Encounter Location(s) Arrival/Admit Date Discharge/Departure Date Discharge/Departure Disposition Provider(s) Departed Clinical -Lab [facility] January 20, 2025 7:49am January 20, 2025 7:50am Discharged to home care or self care (routine discharge) Moy Villa MD Departed Clinical -MRI [facility] February 27, 2025 7:38am February 27, 2025 7:39am Discharged to home care or self care (routine discharge) Norman Wakefield MD Departed Clinical -MRI [address] Closed March 07, 2025 9:38am March 07, 2025 9:39am Discharged to home care or self care (routine discharge) Tevin Lake , DO
[2025-03-11 09:10] VITALS: BP 108/76; PULSE 72; TEMP 36.2; O2SAT 93; BMI 31.5
--- OUTSIDE RECORDS SUMMARY | 2025-03-11 09:12 | XMS_ITS | Encounter Summary ---
Author Organization [facility] Address [address] [place] [address] Care Team Providers Care Air Conditioning Unit Tester Name Role Phone Moy Villa MD Primary Care Provider [phone] Moy Villa MD Unavailable [phone] Coral Ceballos LOW VOLTAGE TECHNICIAN Unavailable [phone] Radha Weiner RN Unavailable [phone] Encounter Details DateTypeDepartmentCare Team (Latest Contact Info)Gvdmzsqtziz08/19/2025Orders Only [facility] [address] [place] [address] Coral Ceballos LOW VOLTAGE TECHNICIAN [address] [place] [address] Social History Tobacco UseTypesPacks/DayYears UsedDateSmoking Tobacco: [...] times a week11/01/2024How often do you attend samaritan or confucianism services?Never11/01/2024Do you belong to any clubs or organizations such as samaritan groups, unions, fraternal or athletic groups, or [...] have six or more drinks on one occasion?Nftsgt9608/13/2024Overall Financial Resource Strain (CARDIA)AnswerDate RecordedHow hard is it for you to pay for the very basics like food, housing, medical care, and heating?Not hard at all 04/09/2024HQ-2AnswerDate RecordedPatient Health Questionnaire-2 Score0 02/25/2025[facility] of Occupational Health - Occupational Stress QuestionnaireAnswerDate RecordedDo you feel stress - tense, restless, nervous, or anxious, or unable to sleep at night because yourmind is troubled all the time - these days?Only a osbyqu9404/09/2024Exercise Vital SignAnswerDate Recorded On average, how many [...] steady place to sleep or slept in [facility] (including now)?No10/20/2022Housing Stability Vital SignAnswerDate RecordedIn [...] InformationValueDate RecordedSex Assigned at BirthNot on fileLegal TcnKgdg5206/22/2022 7:05 PM EDTGender Identity Not on fileSexual JapppuindvvYfdyikzj63/24/2023 8:33 PM EDTOccupationIndustry Job Start DateJob End DateRetiredNot on fileNot on fileNot on filedocumented as of this encounter Plan of Treatment DateTypeDepartmentCare Team (Latest Contact Info)Qkpnlcrbmni07/30/2025 2:15 PM ESTOffice Visit [facility] [address] [place] [address] Tevin Lake, [address] [place] [address] 05/28/2025 10:00 AM ESTOffice Visit [facility] [address] [place] [address] Moy Villa MD [address] [place] [address] documented as of this encounter Procedures Procedure NamePriorityDate/TimeAssociated DiagnosisCommentsCBC (INCLUDES DIFF/PLT)Zfxqioz8502/26/2025 11:30 AM ESTPSA, TOTAL AND JAXHXokxlqb39/19/2025 11:30 AM ESTdocumented in this encounter Results * CBC and differential (02/26/2025 11:30 AM EST)Specimen (Source)Anatomical Location / LateralityCollection Method / VolumeCollection TimeReceived Time BloodVenous blood specimen / Unknown Narrative Authorizing ProviderResult TypeResult StatusJessica R Lause NPLAB BLOOD ORDERABLESFinal Result * PSA, total and free (02/26/2025 11:30 AM EST)Specimen (Source)Anatomical Location / LateralityCollection Method / VolumeCollection TimeReceived Time BloodVenous blood specimen / Unknown Narrative Authorizing ProviderResult TypeResult StatusJessica R Lause NPLAB BLOOD ORDERABLESFinal Result documented in this encounter Visit Diagnoses Not on filedocumented in this encounter Additional Health Concerns AssessmentNoted TimePHQ-9 Depression Total Score: 1:00 PM EST documented as of this encounter Care Teams Team MemberRelationshipSpecialtyStart DateEnd Date Moy Villa MD [address] [place] [address] PCP - GeneralFamily Medicine09/28/22 Moy Villa MD [address] [place] [address] PCP - ACO [place]01/07/23 Coral Ceballos NP [address] [place] [address] Nurse PractitionerFamily Fiywbvwl50/30/24 Radha Weiner, YING [address] [place] [address] Registered NurseFamily Medicine10/30/24documented as of this encounter
--- OUTSIDE RECORDS SUMMARY | 2025-03-11 09:12 | XMS_ITS | Encounter Summary ---
Author Organization [facility] Address [address] [place] [address] Care Team Providers Care Field Cane Scaler Name Role Phone Moy Villa MD Primary Care Provider [phone] Moy Villa MD Unavailable [phone] Coral Ceballos COMPETENCY EVALUATED NURSE AIDE Unavailable [phone] Radha Weiner RN Unavailable [phone] Encounter Details DateTypeDepartmentCare Team (Latest Contact Info)Raddoymjphs33/28/2025External Result Encounter [facility] Unsolicited Tevin Lake, DO [address] [facility] [place], [place] [id number] Social History Tobacco UseTypesPacks/DayYears UsedDateSmoking Tobacco: FormerCigarettesQuit: [...] times a week11/01/2024How often do you attend uatsdin or adventist services?Never11/01/2024Do you belong to any clubs or organizations such as uatsdin groups, unions, fraSocialBrowse or athletic groups, or school groups?Yes11/01/2024How often [...] have six or more drinks on one occasion?Mxgnvh9208/13/2024Overall Financial Resource Strain (CARDIA)AnswerDate RecordedHow hard is it for you to pay for the very basics like food, housing, medical care, and heating?Not hard at all 04/09/2024HQ-2AnswerDate RecordedPatient Health Questionnaire-2 Score0 02/25/2025[facility] [place] of Occupational Health - Occupational Stress QuestionnaireAnswerDate RecordedDo you feel stress - tense, restless, nervous, or anxious, or unable to sleep at night because yourmind is troubled all the time - these days?Only a njguxr7104/09/2024Exercise Vital SignAnswerDate Recorded On average, how many [...] steady [facility]No10/20/2022Housing Stability Vital SignAnswerDate RecordedIn [...] InformationValueDate RecordedSex Assigned at BirthNot on fileLegal CzgLomn1306/22/2022 7:05 PM EDTGender Identity Not on fileSexual NdynegizcbqLrsssbvz62/24/2023 8:33 PM EDTOccupationIndustryJob Start DateJob End DateRetiredNot on fileNot on fileNot on filedocumented as of this encounter Plan of Treatment DateTypeDepartmentCare Team (Latest Contact Info)Ienmhdflttl25/30/2025 2:15 PM ESTOffice Visit [facility] [address] [place] [address] Tevin Lake, DO [address] [place] [address] 05/28/2025 10:00 AM ESTOffice Visit [facility] [address] [place] [phone] Moy Villa MD [address] [place] [address] documented as of this encounter Procedures Procedure NamePriorityDate/TimeAssociated DiagnosisCommentsMR LUMBAR SPINE WO TXWITIFQ89/28/2025 1:02 PM EST documented in this encounter Results * MR lumbar spine wo contrast (03/07/2025 1:02 PM EST)Anatomical Region LateralityModalitySpine, L-spineMagnetic ResonanceSpecimen (Source)Anatomical Location / LateralityCollection Method / VolumeCollection TimeReceived Time 03/07/2025 1:02 PM EST Impressions 03/07/2025 1:11 PM EST At L3-L4: There is a broad-based disc bulge with facet hypertrophy and worsening ligamentum flavum thickening. ??There is moderate to severe spinal canal stenosis with moderate right and mild left neural foraminal narrowing. ??This is worse when compared to the prior exam. ? At L4-L5: There is a circumferential disc bulge with facet hypertrophy and ligamentum flavum thickening. ??There is severe spinal canal stenosis with mild left and moderate to severe right neural foraminal narrowing with mild mass effect on the exiting right L4 nerve roots. ??This is slightly worse when compared to the prior exam. ? At L5-S1: There is a broad-based disc bulge with facet hypertrophy and endplate osteophyte formation. ??There is moderate to severe left and moderate right neural foraminal narrowing with mild mass effect on the exiting left L5 nerve roots. ??This is slightly worse. ? Impression dictated by: Feroz Hartmann M.D. ??03/07/2025 1:09 PM ? Dictation Location: RADIO-PC-24 ? Transcribed By: ? PWS ?03/07/25 1309 ? Dictated By: ?Feroz Hartmann II, MD ?03/07/25 1302 ? Signed By: <Electronically signed by Feroz Hartmann II, MD in OV> ? 03/07/25 1309 Narrative 03/07/2025 1:11 PM [facility] [place] ?[address] ? [place] [address] ? MRI Report ? Signed ? Patient: Rob Hernandez ?MR#: [id number] ?? 37 ? : 1955 ?Acct:[id number] ? Age/Sex: 69 / M ?ADM Date: 03/07/25 ? Loc: [facility] ?Room: ?Type: REG CLI ?? Attending Dr: Tevin Lake DO ?? Copies to: Tevin Lake DO ? Ordering Provider: Tevin Lake DO ?? Date of Service: 03/07/25 ?? MR/MR lumbar spine wo con: M47.816 ? MR lumbar spine wo con ??03/07/2025 10:34 AM ? SIGNS AND SYMPTOMS: Low back pain ? PROTOCOL: Multiplanar multisequence MR images of the lumbar spine without IV contrast ? COMPARISON: 03/31/2014 ? FINDINGS: The bones of the lumbar spine are in anatomic alignment. There is preservation of vertebral body. ??There is moderate to severe disc height loss at L4-5 and L5- S1. ??There is mild disc height loss throughout otherwise. ??There is Modic type I endplate edema at L4-5 and to lesser extent at L3-L4. ??Modic type II fatty endplate degenerative changes are noted at L5- S1. ??The conus terminates at the inferior endplate of the L1 vertebral body level. No epidural or paraspinous fluid collection is appreciated. ? At T12-L1: There is left-sided facet hypertrophy. ??There is mild left neural foraminal narrowing with no significant spinal canal stenosis. ??This is unchanged. ? At L1-L2: There is a broad-based disc bulge. ??There is facet hypertrophy with ligamentum flavum thickening. ??There is mild spinal canal narrowing with mild bilateral neural foraminal narrowing. ?? This is unchanged. ? At L2-L3: There is a broad-based disc bulge with facet hypertrophy and ligamentum flavum thickening. There is moderate spinal canal stenosis with mild bilateral neural foraminal narrowing. ??This is relatively unchanged. ? At L3-L4: There is a broad-based disc bulge with facet hypertrophy and worsening ligamentum flavum thickening. ??There is moderate to severe spinal canal stenosis with moderate right and mild left neural foraminal narrowing. ??This is worse when compared to the prior exam. ? At L4-L5: There is a circumferential disc bulge with facet hypertrophy and ligamentum flavum thickening. ??There is severe spinal canal stenosis with mild left and moderate to severe right neural foraminal narrowing with mild mass effect on the exiting right L4 nerve roots. ??This is slightly worse when compared to the prior exam. ? At L5-S1: There is a broad-based disc bulge with facet hypertrophy and endplate osteophyte formation. ??There is moderate to severe left and moderate right neural foraminal narrowing with mild mass effect on the exiting left L5 nerve roots. ??This is slightly worse. ? MR/MR lumbar spine wo con ?? Procedure Note Feroz Hartmann MD - 03/07/2025 [facility] [address] [address] [place] [address] MRI Report Signed Patient: Rob Hernandez AMR#: [id number] 37 : 5Acct:[id number] Age/Sex: 69 / MADM Date: 03/07/25 Loc: [facility] Room:Type: [facility] CLI Attending Dr: Tevin Lake DO Copies to: Tevin Lake DO Ordering Provider: Tevin Lake DO Date of Service: 03/07/25 MR/MR lumbar spine wo con: [id number] MR lumbar spine wo con 03/07/2025 10:34 AM SIGNS AND SYMPTOMS: Low back pain PROTOCOL: Multiplanar multisequence MR images of the lumbar spine withoutIV contrast COMPARISON: 03/31/2014 FINDINGS: The bones of the lumbar spine are in anatomic alignment. Thereis preservation of vertebral body. There is moderate to severe disc height loss at L4-5 andL5-S1. There is mild disc height loss throughout otherwise. There is Modic type I endplate edema atL4-5 and to lesser extent at L3-L4. Modic type II fatty endplate degenerative changes are noted atL5-S1. The conus terminates at the inferior endplate of the L1 vertebral body level. Noepidural or paraspinous fluid collection is appreciated. At T12-L1: There is left-sided facet hypertrophy. There is mild leftneural foraminal narrowing with no significant spinal canal stenosis. This is unchanged. At L1-L2: There is a broad-based disc bulge. There is facet hypertrophywith ligamentum flavum thickening. There is mild spinal canal narrowing with mild bilateralneural foraminal narrowing. This is unchanged. At L2-L3: There is a broad-based disc bulge with facet hypertrophy andligamentum flavum thickening. There is moderate spinal canal stenosis with mild bilateral neuralforaminal narrowing. This is relatively unchanged. At L3-L4: There is a broad-based disc bulge with facet hypertrophy andworsening ligamentum flavum thickening. There is moderate to severe spinal canal stenosis withmoderate right and mild left neural foraminal narrowing. This is worse when compared to the priorexam. At L4-L5: There is a circumferential disc bulge with facet hypertrophy and ligamentum flavum thickening. There is severe spinal canal stenosis with mild left andmoderate to severe right neural foraminal narrowing with mild mass effect on the exiting right B6dreqk roots. This is slightly worse when compared to the prior exam. At L5-S1: There is a broad-based disc bulge with facet hypertrophy andendplate osteophyte formation. There is moderate to severe left and moderate right neuralforaminal narrowing with mild mass effect on the exiting left L5 nerve roots. This is slightly worse. MR/MR lumbar spine wo con IMPRESSION: At L3-L4: There is a broad-based disc bulge with facet hypertrophy andworsening ligamentum flavum thickening. There is moderate to severe spinal canal stenosis withmoderate right and mild left neural foraminal narrowing. This is worse when compared to the priorexam. At L4-L5: There is a circumferential disc bulge with facet hypertrophy and ligamentum flavum thickening. There is severe spinal canal stenosis with mild left andmoderate to severe right neural foraminal narrowing with mild mass effect on the exiting right A8wnbci roots. This is slightly worse when compared to the prior exam. At L5-S1: There is a broad-based disc bulge with facet hypertrophy andendplate osteophyte formation. There is moderate to severe left and moderate right neuralforaminal narrowing with mild mass effect on the exiting left L5 nerve roots. This is slightly worse. Impression dictated by: Feroz Hartmann M.D. 03/07/2025 1:09 PM Dictation Location: [place] [address] Transcribed By: [facility] 03/07/25 1309 Dictated By: Feroz Hartmann II, MD 03/07/25 1302 Signed By: <Electronically signed by Feroz Hartmann II, MD inOV> 03/07/25 1309 Authorizing ProviderResult TypeResult StatusTevin Lake DOI MRI PROCEDURES Final Result documented in this encounter Visit Diagnoses Not on filedocumented in this encounter Additional Health Concerns AssessmentNoted TimePHQ-9 Depression Total Score: 1:00 PM EST documented as of this encounter Care Teams Team MemberRelationshipSpecialtyStart DateEnd Date Moy Villa MD [address] [place] [address] PCP - GeneralFamily Medicine09/28/22 Moy Villa MD [address] [place] [address] PCP - ACO [facility]01/07/23 Coral Ceballos NP [address] [place] [address] Nurse PractitionerFamily Rqdngiuc77/30/24 Radha Weiner, YING [address] [place] [address] Registered NurseFamily Medicine10/30/24documented as of this encounter
--- OUTSIDE RECORDS SUMMARY | 2025-03-11 09:12 | XMS_ITS | Clinical Summary ---
Author Organization [facility] Address [address] [place] [address] Care Team Providers Care Refractory Mixer Name Role Phone Moy Villa MD Unavailable [phone] Moy Villa MD Primary Care Provider [phone] Allergies Active AllergyReactionsCriticalityNoted DateCommentsHydrocodone-Acetaminophen Euklhrv4103/09/2016 Medications MedicationSigDispense QuantityRefillsLast FilledStart DateEnd DateStatus DULoxetine [...] AM EST03/04/2024ctive Active Problems ProblemNoted DateDiagnosed DatePrimary cibyivynjlai66/08/2024Hyperlipidemia 02/16/2024enign prostatic exhvcaaames46/08/2024Obesity, Class I, BMI 30-34.9 02/16/2024S/P PTCA (percutaneous transluminal coronary angioplasty)02/16/2024 Coronary artery disease involving nisqually heart without angina sqdmehdl69/08/2024 Engages in binge consumption of jhlmddf2602/16/2024Former dzwqxj0102/16/2024Organic erectile yazzjqrmtjn39/26/2024elayed /26/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 11/03/2023 Social History Tobacco UseTypesPacks/DayYears UsedDateSmoking Tobacco: FormerCigarettes Smokeless Tobacco: Never Comments:1 ppd x 10 years qu it in his 0s Alcohol UseStandard Drinks/WeekCommentsYes0 (1 standard drink = 0.6 oz pure alcohol)6-8 drinks once a weekSex and Gender InformationValueDate RecordedSex Assigned at BirthNot on fileLegal WvcXzqp2016 12:35 PM ESTGender Identity Not on fileSexual OrientationNot on file Last Filed Vital Signs Vital SignReadingTime TakenCommentsBlood Cdijtbwj505/6503/05/2024 7:39 AM EST Edrpj666103/05/2024 7:39 AM HLXGetidoifwas16.8 ??C (98.2 ??F)03/05/2024 7:39 AM ESTRespiratory Mkab597903/05/2024 7:39 AM ESTOxygen Ysdgotfxxw653%03/05/2024 7:39 AM ESTInhaled Oxygen Concentration--Thvtek31.7 kg (206 lb 9.1 oz)03/04/2024 11:52 AM ORHHalmmc055.2 cm (5' 7.01 )03/04/2024 11:52 AM ESTBody Mass Index32.35 03/04/2024 11:52 AM EST Plan of Treatment Health MaintenanceDue DateLast DoneCommentsAbdominal Aortic Aneurysm Screening 5Annual PCP Team Chronic Disease Visit1972Anxiety Screening 1972Depression Flmusruoc79/10/1973Hepatitis C Pedhspwgd80/10/1973CT Vcngvuiuciak76/10/2000Fecal Occult Blood11/18/19992881Qhbjckzjjknvl82/10/2000RSV Vaccine (1 - Risk 60-74 years 1-dose series)2014Shingrix Vaccine (2 of 2) Medicare Annual Wellness Visit11/09/2019Colonoscopy dvance Directive Wqduksqjqh65/01/2025Covid-19 Vaccine ( season), 07/17/2021, 01/13/2021, Additional history existsInfluenza Vaccine (#1)/09/2023, 01/26/2023, 01/15/2022, Additional history existsLDL Kylwamapxow52, 02/23/2024, 3Cologuard (FIT-DNA), 03/21/2019Colorectal Cancer Hojrtnbrp13/18/2025Diabetes Cgmnqastk60, 11/14/2023, 3DTaP,Tdap,Td Vaccine (2 - Td or Tdap)Lipid Avtgyzykq56, 02/23/2024, 3Pneumococcal Vaccine: 50+ Fvinnhonj58/20/2023, 12/31/2016, 02/26/2015 Procedures Procedure NamePriorityDate/TimeAssociated DiagnosisCommentsCOMPREHENSIVE METABOLIC CGGHNRdpcqyk92/15/2024 8:38 AM EST Peripheral vascular disease, unspecified (HCC) Pure hypercholesterolemia Routine general medical examination at a health care facility Low libido Unspecified essential hypertension Lumbar radiculopathy Vitamin D deficiency Coronary artery disease involving nisqually heart without angina pectoris, unspecified vessel or lesion type Former smoker Engages in binge consumption of alcohol LIPID PANEL, ONDJWVXTtricyt58/15/2024 8:38 AM EST Peripheral vascular disease, unspecified (HCC) Pure hypercholesterolemia Routine general medical examination at a health care facility Low libido Unspecified essential hypertension Lumbar radiculopathy Vitamin D deficiency Coronary artery disease involving nisqually heart without angina pectoris, unspecified vessel or lesion type Former smoker Engages in binge consumption of alcohol from Last 3 Months or Most Recently Relevant to Health Maintenance Results * (ABNORMAL) LIPID PANEL BASIC (02/23/2024 8:38 AM EST)ComponentValueRef Range Test MethodAnalysis TimePerformed AtPathologist SignatureCholesterol, Qeyfw523 <200 mg/dL02/23/2024 5:05 PM [facility]: <200 mg/dL, Desirable 200-239 mg/dL, Borderline high >239 mg/dL, High Lygmszonlvmy762<150 mg/dL02/23/2024 5:05 PM [facility] Comment: <150 mg/dL, Normal 150-199 mg/dL, Borderline high 200-499 mg/dL, High >499 mg/dL, Very high HDL Xhfprkaaxsz40(L)>39 mg/dL02/23/2024 5:05 PM [facility]: 40-59 mg/dL, Acceptable >59 mg/dL, High: Negative risk factor for coronary heart disease <40 mg/dL, Low: Positive risk factor for coronary heart disease Non HDL Lwirtskxrhm55<130 mg/dL02/23/2024 5:05 PM [facility]: <130 mg/dL, Optimal 130-159 mg/dL, Near optimal/above optimal 160-189 mg/dL, Borderline high 190-219 mg/dL, High >219 mg/dL, Very high Secondary prevention optimal non HDL Cholesterol levels are recommended to be <100 mg/dL Fasting Zvot65yfx03/15/2024 5:05 PM [facility] LABVLDL Ekevzpmdnnd08<30 mg/dL02/23/2024 5:05 PM [facility] TC:HDL Ratio3.13<5.10104/24/2023 5:05 PM [facility] LABLDL Cholesterol, Gbelcdtoxv50<100 mg/dL02/23/2024 5:05 PM [facility]Comment: <100 mg/dL, Optimal 100-129 mg/dL, Near optimal/above optimal 130-159 mg/dL, Borderline high 160-189 mg/dL, High >189 mg/dL, Very high Secondary prevention optimal LDL Cholesterol levels are recommended to be < 70 mg/dL LDL:HDL Ratio1.51<2.5402/23/2024 5:05 PM [facility] Comment: Reference: 1. National Cholesterol Education Program ATP III Guideline At-A-Glance Quick Desk Reference: National Heart, Lung, and Blood Freeman. National Institutes of Health. 2001: NIH Publication No. 01-3305. 2. An International Atherosclerosis Society position paper: global recommendations for the management of dyslipidemia: executive summary, Atherosclerosis. 2014: 232(2):410-413. Specimen (Source)Anatomical Location / LateralityCollection Method / Volume Collection TimeReceived TimeBloodBLOOD SPECIMEN / UnknownVenipuncture / Unknown 02/23/2024 8:38 AM EST02/23/2024 8:39 AM EST Narrative Authorizing ProviderResult TypeResult StatusBranthony Villa MDLABORATORYFinal ResultPerforming OrganizationAddressCity/State/ZIP CodePhone Number [facility] [address] [facility] [address] [place] [address], [place] [facility] [address] [place] [phone] * COMPREHENSIVE METABOLIC PANEL (02/23/2024 8:38 AM EST)ComponentValueRef Range Test MethodAnalysis TimePerformed AtPathologist SignatureProtein, Total6.96.3 - 8.0 g/dL02/23/2024 9:10 AM ESTNOR[facility]CO[facility] LABAlbumin 4.23.9 - 4.9 g/dL02/23/2024 9:10 AM ESTNOR[facility]CO[facility] Calcium, Total9.48.5 - 10.2 mg/dL02/23/2024 9:10 AM ESTNOR[facility]CO[facility] LABBilirubin, Total0.40.2 - 1.3 mg/dL02/23/2024 9:10 AM EST [facility] LABAlkaline Watwyyauzey2761 - 113 U/L 02/23/2024 9:10 AM [facility] QKFQHB8409 - 40 U/L 02/23/2024 9:10 AM [facility] YWJEDJ4888 - 54 U/L 02/23/2024 9:10 AM [facility] KHULnkhyky2089 - 99 mg/dL02/23/2024 9:10 AM [facility] LABComment: The [place] Diabetes Association (ADA) provides guidance for cutoff [...] Standards of Medical Care in Diabetes 2016, [place] Diabetes Association. Diabetes Care. 2016.39(Suppl 1). ZIB017 - 24 mg/dL02/23/2024 9:10 AM [facility] Creatinine0.990.73 - 1.22 mg/dL02/23/2024 9:10 AM [facility] XIGFdrvgs082309 - 144 mmol/L104/24/2023 9:10 AM [facility] LABPotassium4.33.7 - 5.1 mmol/L104/24/2023 9:10 AM [facility] GYYNgpxlanb35859 - 107 mmol/L104/24/2023 9:10 AM [facility] ZATKY02188 - 30 mmol/L104/24/2023 9:10 AM [facility] LABAnion Gap88 - 15 mmol/L104/24/2023 9:10 AM [facility] LABEstimated Glomerular Filtration Rate82 >=60 mL/min/1.73m 02/23/2024 9:10 AM ESTNOR[facility]CO[facility] LABComment:Estimated Glomerular Filtration Rate (eGFR) is calculated [...] VolumeCollection TimeReceived TimeBloodBLOOD SPECIMEN / UnknownVenipuncture / Lazjyfv2902/23/2024 8:38 AM EST02/23/2024 8:39 AM EST Narrative Authorizing ProviderResult TypeResult StatusBranthony Villa MDLABORATORYFinal ResultPerforming OrganizationAddressCity/State/ZIP CodePhone Number [facility] [address] [place] [phone] from Last 3 Months or Most Recently Relevant to Health Maintenance Insurance Care Teams Team MemberRelationshipSpecialtyStart DateEnd Moy Villa MD [address] [place] [place] [address] PCP - [facility]02/12/24 Moy Villa MD [address] [place] [place] [address] [facility]11/06/23
--- OUTSIDE RECORDS SUMMARY | 2025-03-11 09:12 | XMS_ITS | Encounter Summary ---
Author Organization [facility] Address [address] [place] [address] Care Team Providers Care Respiratory Coordinator Name Role Phone Moy Villa MD Primary Care Provider [phone] Moy Villa MD Unavailable [phone] [address] Ceballos GLASS TINTER Unavailable [phone] Radha Weiner RN Unavailable [phone] Encounter Details DateTypeDepartmentCare Team (Latest Contact Info)Faofwyfnfdr05/26/2025Patient Outreach [facility] [address] [place] [phone] Radha Weiner, YING [address] [place] [address] Social History Tobacco UseTypesPacks/DayYears UsedDateSmoking Tobacco: FormerCigarettesQuit: [...] times a week11/01/2024How often do you attend taoism or pentecostalism services?Never11/01/2024Do you belong to any clubs or organizations such as taoism groups, unions, fraternal or athletic groups, or [...] have six or more drinks on one occasion?Qzsfvz3208/13/2024Overall Financial Resource Strain (CARDIA)AnswerDate RecordedHow hard is it for you to pay for the very basics like food, housing, medical care, and heating?Not hard at all 04/09/2024HQ-2AnswerDate RecordedPatient Health Questionnaire-2 Score0 02/25/2025[facility] [place] [facility] - Occupational Stress QuestionnaireAnswerDate RecordedDo you feel stress - tense, restless, nervous, or anxious, or unable to sleep at night because yourmind is troubled all the time - these days?Only a apcinp5204/09/2024Exercise Vital SignAnswerDate Recorded On average, how many [...] steady place to sleep or slept in [facility] (including now)?No10/20/2022Housing Stability Vital SignAnswerDate RecordedIn [...] InformationValueDate RecordedSex Assigned at BirthNot on fileLegal UloDsvv5606/22/2022 7:05 PM EDTGender Identity Not on fileSexual SpzjtpzrvueSyfvyjee11/24/2023 8:33 PM EDTOccupationIndustry Job Start DateJob End DateRetiredNot on fileNot on fileNot on filedocumented as of this encounter Progress Notes * Radha Weiner RN - 03/05/2025 8:04 AM EST Pt calls re: wallace refill. Reviewed chart. [place] [facility] [place] [place] [facility] [place]. He is advised to contact [facility] pharmacy when they open to check on medication. The only other issue that insurance underwriter sales could see is possible need for a PA that office would need to complete. Advised will send to office for review. <March 05, 2025, 12:07 - Radha Weiner RN> [employer] is prescription coverage, per pt report. He is now stating Deejay, is filling medication. documented in this encounter Plan of Treatment DateTypeDepartmentCare Team (Latest Contact Info)Ithvmtznhxl13/30/2025 2:15 PM ESTOffice Visit [facility] [address] [place] [address] Tevin Lake, DO [address] [place] [address] 05/28/2025 10:00 AM ESTOffice Visit [facility] [address] [place] [address] Moy Villa MD [address] [place] [address] documented as of this encounter Visit Diagnoses Diagnosis Essential hypertension- Primary Unspecified essential hypertension Insomnia, unspecified type documented in this encounter Additional Health Concerns AssessmentNoted TimePHQ-9 Depression Total Score: 1:00 PM EST documented as of this encounter Care Teams Team MemberRelationshipSpecialtyStart DateEnd Date Moy Villa MD [address] [place] [address] PCP - GeneralFamily Medicine09/28/22 Moy Villa MD [address] [place] [address] PCP - [facility]01/07/23 Coral Ceballos NP [address] [place] [address] Nurse PractitionerFamily Psqmhdcf36/30/24 Radha Weiner, YING [address] [place] [address] Registered NurseFamily Medicine10/30/24documented as of this encounter
--- OUTSIDE RECORDS SUMMARY | 2025-03-11 09:12 | XMS_ITS | Encounter Summary ---
Author Organization [facility] Address [address] [place] [address] Phone Care Team Providers Care Stewardesses Teacher Name Role Phone Moy Villa MD Primary Care Provider [phone] Encounter Details DateTypeDepartmentCare Team (Latest Contact Info)Ulexdijtnlq55/21/2025Telephone [facility] [address] [address] Faina Sebastian LPN Social History Tobacco UseTypesPacks/DayYears UsedDateSmoking Tobacco: FormerCigarettesQuit: 1990Smokeless Tobacco: NeverAlcohol UseStandard Drinks/WeekCommentsYes6 (1 standard drink = 0.6 oz pure alcohol)Sex and Gender InformationValueDate RecordedSex Assigned at BirthNot on fileLegal DyfAddk04/26/2022 7:55 PM EST Gender IdentityNot on fileSexual OrientationNot on filedocumented as of this encounter Miscellaneous Notes * Telephone Encounter - Nel Freitas LPN - 03/05/2025 11:[address] Lucia's office update. Note faxed to given number at [phone]. This fax number was confirmed. * Telephone Encounter - Faina Sebastian LPN - 02/28/2025 10:52 AM EST Call from [place] with Dr. Wakefield' office. Patient has MRI guided prostate biopsy scheduled under [facility] 12.02.25. Inquiring about holding ASA 1 week prior to surgery. And requesting cardiac clearance for anesthesia. (F) [phone] (F) [phone] documented in this encounter Plan of Treatment DateTypeDepartmentCare Team (Latest Contact Info)Zegjnmnrnen50/25/2026 1:00 PM ESTOffice Visit [address] [place] [address] Jo Ann Jc, COMPRESSOR MECHANIC BUS-SALES PROMOTER [address] [facility], [address] [place] [address] 10/01/2025 2:30 PM EDTOffice Visit [address] [place] [address] Jo Ann Jc, COMPRESSOR MECHANIC BUS-SALES PROMOTER 703 [facility], [facility] [address] [place] [address] documented as of this encounter Visit Diagnoses Not on filedocumented in this encounter Additional Health Concerns AssessmentNoted TimeA fall risk assessment has been completed for the patient 02/04/2025 2:37 PM EDTdocumented as of this encounter Care Teams Team MemberRelationshipSpecialtyStart DateEnd Date Moy Villa MD [address] [place] [id number] PCP - GeneralFamily Flrouawh79/27/23documented as of this encounter
--- OUTSIDE RECORDS SUMMARY | 2025-03-11 09:12 | XMS_ITS | Clinical Summary ---
Author Organization [facility] Address [address] [place] [address] Phone Care Team Providers Care Vice President Of Communications Name Role Phone Moy Villa MD Primary Care Provider [phone] Allergies Active AllergyReactionsCriticalityNoted DateCommentsHydrocodone-Acetaminophen KgnvptnByv38/10/2024 Medications MedicationSigDispense QuantityRefillsLast FilledStart DateEnd DateStatus cholecalciferol [...] mg) by mouth once daily. 30 tablet 11006/04/54333406/04/2025ctive metoprolol succinate XL (Toprol-XL) 25 mg 24 hr tablet Indications:ASHD (arteriosclerotic heart disease)Take 0.5 tablets (12.5 mg) by mouth once daily. Do not crush or chew.ctive metoprolol succinate XL (Toprol-XL) 25 mg 24 hr tablet Indications:ASHD (arteriosclerotic heart disease)Take 1 tablet (25 mg) by mouth once daily. Do not crush or chew. 90 tablet Discontinued(Reorder) Active Problems ProblemNoted DateDiagnosed DateEssential mnyujcndwtjt62/25/2025 Assessment & Plan (02/05/2025 10:58 AM EDT): [...] lifestyle choices on overall cardiovascular health. Mixed adeqklbfgktxym04/10/2024 Assessment & Plan (02/05/2025 10:58 AM EDT): Moderate intensity statin January 2025 LDL 61, HDL 39 Assessment & Plan (06/04/2024 3:09 PM EST): Moderate intensity statin February 2024 LDL 59, HDL 39 History of percutaneous transluminal coronary /10/2024SHD (arteriosclerotic heart disease)04/19/2023 Assessment & Plan (02/05/2025 10:57 AM EDT): September 2010 - no ACS admit pLAD [...] infarct. EF 69%. TID ratio 0.99 Former okwdal3804/19/2023 Encounters DateTypeDepartmentCare OiirOhjssedehdx13/21/2025Telephone [address] [address] Faina Sebastian LPN 02/10/2025Refill [address] [place] [address] Faina Sebastian LPN ASHD (arteriosclerotic heart disease)02/04/2025 2:30 PM EDTOffice Visit [address] [place] [address] Jo Ann Jc, APPLICATIONS ENGINEER MANUFACTURING-CIVIL RIGHTS ATTORNEY ASHD (arteriosclerotic heart disease) (Primary Dx); Essential hypertension; Mixed hyperlipidemia; BMI 31.0-31.9,adult02/04/20255296Oylelb50/15/2025Results Follow-Up [place] [address] [place] [address] Leann Renteria LPN Nuclear Stress Test01/20/2025 8:25 AM EDT - 01/20/2025 11:59 PM EDTHospital Encounter at [facility] [address] [address] Discharge Disposition: Home01/20/2025 8:25 AM EDT - 01/20/2025 11:59 PM EDT Hospital Encounter at [facility] [address] [place] [address] Discharge Disposition: Home01/20/2025 8:25 AM EDTHospital Encounter [address] [address] Discharge Disposition: Home01/20/2025 8:24 AM EDTHospital Encounter [facility] [address] [place] [address] Discharge Disposition: Home01/20/2025 8:24 AM EDTHospital Encounter [facility] [address] [place] [address] ASHD (arteriosclerotic heart disease) Discharge Disposition: Home01/20/2025Scanned Document [facility] [address] [place] [address] Scanning, Generic Provider 01/20/20259125Fbnfgx20/24/2025Telephone [address] [address] Cyndi Younger LPN from Last 3 Months Family History Medical HistoryRelationNameCommentsLung cancerFatherAAAMotherRelationNameStatus CommentsFatherMother Social History Tobacco UseTypesPacks/DayYears UsedDateSmoking Tobacco: FormerCigarettesQuit: 1990Smokeless Tobacco: NeverAlcohol UseStandard Drinks/WeekCommentsYes6 (1 standard drink = 0.6 oz pure alcohol)Sex and Gender InformationValueDate RecordedSex Assigned at BirthNot on fileLegal QmgSfyi90/26/2022 7:55 PM EST Gender IdentityNot on fileSexual OrientationNot on file Last Filed Vital Signs Vital SignReadingTime TakenCommentsBlood Ghpukzhn86/6602/04/2025 2:38 PM EDT Wszmy092902/04/2025 2:38 PM EDTTemperature--Respiratory Rate--Oxygen Saturation-- Inhaled Oxygen Concentration--Eqyows12.3 kg (210 lb)02/04/2025 2:38 PM EDTHeight 172.7 cm (5' 8 )02/04/2025 2:38 PM EDTBody Mass Index31.9302/04/2025 2:38 PM EDT Plan of Treatment DateTypeDepartmentCare Team (Latest Contact Info)Eipkmgorpyd54/25/2026 1:00 PM ESTOffice Visit [address] [address] Jo Ann Jc, APPLICATIONS ENGINEER MANUFACTURING-CIVIL RIGHTS ATTORNEY 703 [facility] 2, [address] [address] 10/01/2025 2:30 PM EDTOffice Visit [address] [address] Jo Ann Jc, APPLICATIONS ENGINEER MANUFACTURING-CIVIL RIGHTS ATTORNEY 703 [facility] 2, [facility] [address] [place] [address] Health MaintenanceDue DateLast DoneCommentsCT Zclqepkuuxjj69/10/1955FIT 1954Medicare Annual Wellness Visit (AWV)1955 1721Frdgfnlzwazqi62/10/1955 MMR Vaccines (1 of 1 - Standard series)11/18/1955Diabetes Gjqkqpprw51/10/1973 Hepatitis C Tvgrymkvf05/10/1973RSV High Risk: (Elderly (60+) or Population) (1 - Risk 50-74 years 1-dose series)2004Zoster Vaccines (2 of 2)Abdominal Aortic Aneurysm (AAA) Vsgkmhwha61/10/2020 Influenza Vaccine (#1)/09/2023, 01/26/2023, 01/15/2022, Additional history existsCOVID-19 Vaccine ( season)/11/2021, 07/17/2021, 07/10/2020, Additional history existsFIT-DNA (Cologuard)03/27/2025 2DTaP/Tdap/Td Vaccines (2 - Td or Tdap)Lipid Panel 5Colonoscopy, 3Colorectal Cancer Okhdokhdj70/31/2033Pneumococcal VptgytnLbhmjwjpg47/20/2023, 12/31/2016, 02/26/2015HIB VaccinesAged OutNo longer eligible based [...] TEST, REGADENOSON W MYOCARDIAL PERFUSION SPECT (MULTI STUDY)Rthlyyl8201/20/2025 10:52 AM EDT ASHD (arteriosclerotic heart disease) [...] Tate 01/21/2025 5:10 PM Dictation workstation: ?? [id number] Narrative 01/21/2025 5:10 PM EDT Interpreted By: Kris Tate and Giannuzzi Michael STUDY: MYOCARDIAL PERFUSION STRESS TEST WITH LEXISCAN ?? Performing facility: [facility], [address] [place] [address], [address], [address] Provider: ??Jo Ann Jc RN, CIVIL RIGHTS ATTORNEY PCP: ??Dr. Kun Villa Supervising provider: ??Nhung Rader MD, FACC ?? INDICATION: Signs/Symptoms:chest pain. ?? ,I25.10 Atherosclerotic heart disease of [place] coronary artery without angina pectoris ?? HISTORY: Gender: ??M; Age: ??69 y/o ; Height: ??HT 172.7 cm cm; Weight: ?? WT 95.981 kg kg. ?? High Cholesterol; ??CAD; ??HTN; ??Fatigue; Quit smoking 35 years ago. ?? Cardiac catheterization on 2012. ??PTCA on 2010. ?? COMPARISON: Previous nuclear testing completed [id number] at [facility]. ? ACCESSION NUMBER(S): [id number] ?? ORDERING CLINICIAN: JO ANN JC ?? TECHNIQUE: ONE DAY protocol. Stress [...] PERFUSION STRESS TEST WITH LEXISCAN Performing facility: [facility], [address] [place] [address], [address], [address] Provider: Jo Ann Jc RN, CIVIL RIGHTS ATTORNEY PCP: Dr. Kun Villa Supervising provider: Nhung Rader MD, [facility] INDICATION: Signs/Symptoms:chest pain. ,I25.10 Atherosclerotic heart disease of [place] coronary artery without angina pectoris HISTORY: Gender: M; Age: 69 y/o ; Height: HT 172.7 cm cm; Weight: WT 95.981 kg kg. High Cholesterol; CAD; HTN; Fatigue; Quit smoking 35 years ago. Cardiac catheterization on 2010, 2012. PTCA on 2010. COMPARISON: Previous nuclear testing completed [id number] at [facility]. ACCESSION NUMBER(S): [id number] ORDERING CLINICIAN: JO ANN JC TECHNIQUE: ONE DAY protocol. Stress injection: [...] Kris Tate 01/21/2025 5:10 PM Dictation workstation: [id number] Authorizing ProviderResult TypeResult StatusJo Ann Jc APPLICATIONS ENGINEER MANUFACTURING-CNPCV STRESS PROCEDURESFinal Result from Last 3 [place] [address] Care Teams Team MemberRelationshipSpecialtyStart DateEnd Date Moy Villa MD [address] [place] [address] PCP - GeneralFamily Knaqxbtx55/27/23
--- OUTSIDE RECORDS SUMMARY | 2025-03-11 09:12 | XMS_ITS | Clinical Summary ---
Author Organization [facility] Address [address] [place] [address] Care Team Providers Care Paralegal Instructor Name Role Phone Unavailable Primary Care Provider Unavailabl e Social History Tobacco UseTypesPacks/DayYears UsedDateSmoking Tobacco: Never AssessedSex and Gender InformationValueDate RecordedSex Assigned at BirthNot on fileLegal Sex Male10/07/2021 12:21 AM EDTGender IdentityNot on fileSexual OrientationNot on file Plan of Treatment Not on file
--- OUTSIDE RECORDS SUMMARY | 2025-03-11 09:12 | XMS_ITS | Encounter Summary ---
Author Organization [facility] Address [address] [place] [address] Care Team Providers Care Hot Wire Glass Tube Cutter Name Role Phone Moy Villa MD Primary Care Provider [phone] Moy Villa MD Unavailable [phone] Cor[address] Ceballos CUSTOMS ENTRY WRITER Unavailable [phone] Radha Weiner RN Unavailable [phone] Encounter Details DateTypeDepartmentCare Team (Latest Contact Info)Bintpfotcxa00/26/2025Clinisync Result Encounter [facility] External Department Unsolicited Provider, Generic External Data Social History Tobacco UseTypesPacks/DayYears UsedDateSmoking Tobacco: FormerCigarettesQuit: [...] times a week11/01/2024How often do you attend cheondoism or restorationist services?Never11/01/2024Do you belong to any clubs or organizations such as cheondoism groups, unions, fraCommuniClique or athletic groups, or school groups?Yes11/01/2024How often [...] have six or more drinks on one occasion?Rdqold8908/13/2024Overall Financial Resource Strain (CARDIA)AnswerDate RecordedHow hard is it for you to pay for the very basics like food, housing, medical care, and heating?Not hard at all 04/09/2024HQ-2AnswerDate RecordedPatient Health Questionnaire-2 Score0 02/25/2025[facility] [place] of Occupational Health - Occupational Stress QuestionnaireAnswerDate RecordedDo you feel stress - tense, restless, nervous, or anxious, or unable to sleep at night because yourmind is troubled all the time - these days?Only a hbwozk0704/09/2024Exercise Vital SignAnswerDate Recorded On average, how many [...] steady place to sleep or slept in [facility] (including now)?No10/20/2022Housing Stability Vital SignAnswerDate RecordedIn the last 12 months, was there a time when you were not able to pay the mortgage or rent on time?No11/01/2024In the past 12 months, how many times have you moved where you were living? At any time in the past 12 months, were you homeless or living in a assisted (including now)?No11/01/2024Sex and Gender InformationValueDate RecordedSex Assigned at BirthNot on fileLegal EpeSfls5606/22/2022 7:05 PM EDTGender Identity Not on fileSexual DsmtsdcbczxCtocfzlz26/24/2023 8:33 PM EDTOccupationIndustryJob Start DateJob End DateRetiredNot on fileNot on fileNot on filedocumented as of this encounter Plan of Treatment DateTypeDepartmentCare Team (Latest Contact Info)Kvjuwfdqzhs50/30/2025 2:15 PM ESTOffice Visit [facility] [address] [place] [address] Brown, Tevin A, DO [address] [place] [address] 05/28/2025 10:00 AM ESTOffice Visit [facility] [address] [place] [address] Moy Villa MD [address] [place] [address] documented as of this encounter Procedures Procedure NamePriorityDate/TimeAssociated DiagnosisCommentsSRMCOH PROTHROMBIN TIME INR W/O MBVKAgxhuxw95/26/2025 2:00 PM EST CCF OGIQXnskbnp17/26/2025 2:00 PM EST ALL CBC WITH AUTO QKIJOxpkrzz25/26/2025 2:00 PM EST ALL BASIC METABOLIC ABGAZAlaqvuc65/26/2025 2:00 PM EST documented in this encounter Results * (ABNORMAL) ALL CBC WITH AUTO DIFF (03/05/2025 2:00 PM EST)ComponentValueRef RangeTest MethodAnalysis TimePerformed AtPathologist SignatureTBH WBC6.94.0 - 11.0 10 3/uLTBHTBH RBC5.144.70 - 6.10 10 6/uLTBHTBH HGB14.114.0 - 18.0 g/dLTBH TBH HCT43.942.0 - 54.0 %TBHTBH MCV85.480.0 - 94.0 fLTBHTBH MCH27.425.9 - 34.0 pgTBHTBH MCHC32.129.9 - 35.2 g/dLTBHTBH RDW19.3(H)11.0 - 15.0 %TBHTBH ERL122 150 - 450 10 3/uLTBHTBH MPV10.39.5 - 13.5 fLTBHNEUTROPHILS PERCENT AUTO45.4 43.0 - 75.0 %TBHLYMPHOCYTES PERCENT AUTO39.720.5 - 60.0 %TBHMONOCYTES PERCENT AUTO10.61.7 - 12.0 %TBHTBH EO %3.30.9 - 7.0 %TBHBASOPHILS PERCENT AUTO0.70.2 - 2.0 %TBHIMMATURE GRANULOCYTES PCT AUTO0.30.0 - 0.5 %TBHNEUTROPHILS ABSOLUTE AUTO3.11.4 - 6.5 10 3/uLTBHLYMPHOCYTES ABSOLUTE AUTO2.71.2 - 3.8 10 3/uLTBH MONOCYTES ABSOLUTE AUTO0.70.3 - 0.8 10 3/uLTBHTBH EO #0.20.0 - 0.7 10 3/uLTBH BASOPHILS ABSOLUTE AUTO0.10.0 - 0.1 10 3/uLTBHIMMATURE GRANULOCYTES ABS AUTO 0.020.00 - 0.03 10 3/uLTBHSpecimen (Source)Anatomical Location / Laterality Collection Method / VolumeCollection TimeReceived Time03/05/2025 2:00 PM EST 03/05/2025 2:11 PM EST Narrative CLINISYNC - 03/05/2025 3:38 PM EST Authorizing ProviderResult TypeResult StatusGeneric External Data Provider CLINISYNCFinal ResultPerforming OrganizationAddressCity/State/ZIP CodePhone Number [facility] * ALL BASIC METABOLIC PANEL (03/05/2025 2:00 PM EST)ComponentValueRef RangeTest MethodAnalysis TimePerformed AtPathologist VmwqkrfncCDNEAN214855 - 145 mmol/L TBHPOTASSIUM4.83.5 - 5.1 mmol/KFMQJHUVVTQH95808 - 107 mmol/LTBHCARBON DIOXIDE 31.521.0 - 32.0 mmol/LTBHANION GAP8.2PCMGLZDTYZ82929 - 106 mg/dLTBHBLOOD UREA EQULUGDB70.07.0 - 18.0 mg/dLTBHCREATININE1.110.70 - 1.30 mg/dLTBHTBH EGFR-AF CROATIAN>60>=60 mL/min/1.73m 2TBHTBH EGFR-NON AF CROATIAN>60>=60 mL/min/1.73m 2TBHBUN CREATININE RATIO13.7RIPRTXIAQT4.98.5 - 10.1 mg/dLTBHSpecimen (Source) Anatomical Location / LateralityCollection Method / VolumeCollection Time Received Time03/05/2025 2:00 PM EST03/05/2025 2:11 PM EST Narrative CLINISYNC - 03/05/2025 3:12 PM EST Authorizing ProviderResult TypeResult StatusGeneric External Data Provider CLINISYNCFinal ResultPerforming OrganizationAddressCity/State/ZIP CodePhone Number [facility] * CCF APTT (03/05/2025 2:00 PM EST)ComponentValueRef RangeTest MethodAnalysis TimePerformed AtPathologist SignaturePARTIAL THROMBOPLASTIN TIME25.222.3 - 36.2 secTBHSpecimen (Source)Anatomical Location / LateralityCollection Method / VolumeCollection TimeReceived Time03/05/2025 2:00 PM EST03/05/2025 2:11 PM EST Narrative CLINISYNC - 03/05/2025 2:50 PM EST Authorizing ProviderResult TypeResult StatusGeneric External Data Provider CLINISYNCFinal ResultPerforming OrganizationAddressCity/State/ZIP CodePhone Number [facility] * SRMCOH PROTHROMBIN TIME INR W/O COUM (03/05/2025 2:00 PM EST)ComponentValueRef RangeTest MethodAnalysis TimePerformed AtPathologist SignaturePROTHROMBIN TIME 11.09.0 - 11.6 secTWASHINGTON RURAL HEALTH COLLABORATIVE INR1.04TBHComment: DESIRED INR: 2.0-3.0 CONDITIONS NOT LISTED BELOW 2.5-3.5 FOR PROSTHETIC HEART VALVE REPLACEMENT 2.5-3.5 RECURRENT THROMBOSIS Specimen (Source)Anatomical Location / LateralityCollection Method / Volume Collection TimeReceived Time03/05/2025 2:00 PM EST03/05/2025 2:11 PM EST Narrative CLINISYNC - 03/05/2025 2:50 PM EST Authorizing ProviderResult TypeResult StatusGeneric External Data Provider CLINISYNCFinal ResultPerforming OrganizationAddressCity/State/ZIP CodePhone Number [facility] documented in this encounter Visit Diagnoses Not on filedocumented in this encounter Additional Health Concerns AssessmentNoted TimePHQ-9 Depression Total Score: 1:00 PM EST documented as of this encounter Care Teams Team MemberRelationshipSpecialtyStart DateEnd Date Moy Villa MD [address] [place] [address] PCP - GeneralFamily Medicine09/28/22 Moy Villa MD [address] [place] [address] PCP - [facility]CO [facility]01/07/23 Coral Ceballos CUSTOMS ENTRY WRITER [address] [place] [address] Nurse PractitionerFamily Xftmmpww72/30/24 Radha Weiner, RN [address] [place] [address] Registered NurseFamily Medicine10/30/24documented as of this encounter
--- OUTSIDE RECORDS SUMMARY | 2025-03-11 09:12 | XMS_ITS | Encounter Summary ---
Author Organization [facility] Address [address] [place] [address] Care Team Providers Care Information Services Consultant Name Role Phone Eliot Villa MD Primary Care Provider [phone] Eliot Villa MD Unavailable [phone]os TESTER VIBRATOR EQUIPMENT Unavailable [phone] Radha Weiner RN Unavailable [phone] Encounter Details DateTypeDepartmentCare Team (Latest Contact Info)Uhmfqxkxixq84/26/2025Clinisync Result Encounter [facility] External Department Unsolicited Provider, [...] week11/01/2024How often do you attend protestant or taoism services?Never11/01/2024Do you belong to any clubs or organizations such as protestant groups, unions, fraQingguo or athletic groups, or school groups?Yes11/01/2024How often [...] have six or more drinks on one occasion?Bjdnqh2908/13/2024Overall Financial Resource Strain (CARDIA)AnswerDate RecordedHow hard is it for you to pay for the very basics like food, housing, medical care, and heating?Not hard at all 04/09/2024HQ-2AnswerDate RecordedPatient Health Questionnaire-2 Score0 02/25/2025[facility] [place] of Occupational Health - Occupational Stress QuestionnaireAnswerDate RecordedDo you feel stress - tense, restless, nervous, or anxious, or unable to sleep at night because yourmind is troubled all the time - these days?Only a xlfaly8104/09/2024Exercise Vital SignAnswerDate Recorded On average, how many [...] steady place to sleep or slept in [facility] (including now)?No10/20/2022Housing Stability Vital SignAnswerDate [...] InformationValueDate RecordedSex Assigned at BirthNot on fileLegal SncRhgq5906/22/2022 7:05 PM EDTGender Identity Not on fileSexual KcbogbqrajdSiervnxl39/24/2023 8:33 PM EDTOccupationIndustryJob Start DateJob End DateRetiredNot on fileNot on fileNot on filedocumented as of this encounter Plan of Treatment DateTypeDepartmentCare Team (Latest Contact Info)Zatyawivujo29/30/2025 2:15 PM ESTOffice Visit [facility] [address] [place] [address] Tevin Lake, DO [address] [place] [address] 05/28/2025 10:00 AM ESTOffice Visit [facility] [address] [place] [phone] Eliot Villa MD [address] [place] [address] documented as of this encounter Procedures Procedure NamePriorityDate/TimeAssociated DiagnosisCommentsXR CHEST 2V105/05/2024 4:33 PM EST documented in this encounter Results * XR CHEST 2V (03/05/2025 4:33 PM EST)Anatomical RegionLateralityModalityOther Specimen (Source)Anatomical Location / LateralityCollection Method / Volume Collection TimeReceived Time03/05/2025 4:33 PM EST Narrative 03/05/2025 4:35 PM EST [facility] ?[address] ? [place] [address] ?XRay Report ? Signed ? Patient: ROB SANTIAGO ?MR#: [id number] ?? : 1955 ?Acct:[id number] ?? Age/Sex: 69 / M ?ADM Date: 03/05/25 ?? Loc: PST ? Attending Dr: Norman Hou M.D. ? Ordering Physician: Norman Hou M.D. ?? Date of Service: 03/05/25 ?? Procedure(s): XR chest 2V ?? Accession Number(s): [id number] ? cc: ELIOT VILLA ; Norman Hou M.D. ? [facility] ? [address] ? [place] [address] ? Patient Name: ?? ROB ??REEL ? MRN: [id number] ? date: 1955 ?Sex: M ?? Assigned Patient Location: SURGOUT ?? Current Patient Location: SURGOUT ?? Accession/Order Number: [id number] ?? Exam Date: 03/05/2025 ??14:10 ?Report Date: 03/05/2025 ??16:33 ? At the request of: ?? NORMAN ??HOU ??MD ? Procedure: ??XR chest 2V ? PA AND LATERAL CHEST: ? CLINICAL HISTORY: Preop exam ? COMPARISON: None ? FINDINGS: ? Unremarkable cardiomediastinal silhouette. ??Lungs clear. ??No effusion or ?? pneumothorax. ??Degenerative changes of thoracic spine. ? XR/XR chest 2V ?? IMPRESSION: ? NO ACUTE CARDIOPULMONARY ABNORMALITY. ? Impression dictated by: Deny Guadarrama M.D. ??03/05/2025 4:33 PM ? Dictation Location: RADIO-PC-29 ? Electronically authenticated by: [id number] ??Y ?? Date: 03/05/2025 ??16:33 ? Dictated By: ?Deny Guadarrama M.D. ? Signed By: ?03/05/25 1635 ? DD/ 1633 ? TD/TT: ? [place]: Procedure Note Radiology, Radiologist, - 03/05/2025 [place] [address] XRay Report Signed Patient: ROB SANTIAGOMR#: [id number] : [id number] Age/Sex: 69 / MADM Date: 03/05/25 Loc: [facility] Attending Dr: Norman Hou M.D. Ordering Physician: Norman Hou M.D. Date of Service: 03/05/25 Procedure(s): XR chest 2V Accession Number(s): [id number] cc: ELIOT VILLA ; Norman Hou M.D. The [place] [id number] Patient Name: ROB SANTIAGO MRN: [id number] date: 1955 Sex: M Assigned Patient Location: [facility] Current Patient Location: [facility] Accession/Order Number: [id number] Exam Date: 03/05/2025 14:10 Report Date: 03/05/2025 16:33 At the request of: NORMAN HOU MD Procedure: XR chest 2V PA AND LATERAL CHEST: CLINICAL HISTORY: Preop exam COMPARISON: None FINDINGS: Unremarkable cardiomediastinal silhouette. Lungs clear. No effusion or pneumothorax. Degenerative changes of thoracic spine. XR/XR chest 2V IMPRESSION: NO ACUTE CARDIOPULMONARY ABNORMALITY. Impression dictated by: Deny Guadarrama M.D. 03/05/2025 4:33 PM Dictation Location: [place] [address] Electronically authenticated by: [id number] Y Date: 6:33 Dictated By: Deny Guadarrama M.D. Signed By:03/05/25 1635 DD/ 1633 TD/TT: [place]: Authorizing ProviderResult TypeResult StatusGeneric External Data Provider CLINISYNC IMAGINGFinal Result documented in this encounter Visit Diagnoses Not on filedocumented in this encounter Additional Health Concerns AssessmentNoted TimePHQ-9 Depression Total Score: 1:00 PM EST documented as of this encounter Care Teams Team MemberRelationshipSpecialtyStart DateEnd Date Eliot Villa MD [address] [place] [address] PCP - GeneralFamily Medicine09/28/22 Eliot Villa MD [address] [place] [address] PCP - ACO [facility]01/07/23 Coral Ceballos NP [address] [place] [address] Nurse PractitionerFamily Xnrcegih49/30/24 Radha Weiner RN [address] [place] [address] Registered NurseFamily Medicine10/30/24documented as of this encounter
--- OUTSIDE RECORDS SUMMARY | 2025-03-11 09:12 | XMS_ITS | Encounter Summary ---
Author Organization [facility] Address [address] [place] [address] Care Team Providers Care Plant Health Manager Name Role Phone Moy Villa MD Primary Care Provider [phone] Moy Villa MD Unavailable [phone] Cor[address] Ceballos HVAC R TECH Unavailable [phone] Radha Weiner RN Unavailable [phone] Reason for Visit * ReasonOnset DateCommentsMed Ferlne1003/04/2025 Encounter Details DateTypeDepartmentCare Team (Latest Contact Info)Twftevpwsnr07/25/2025Refill [facility] [address] [place] [address] Coral Ceballos, HVAC R TECH [address] [place] [address] Primary insomnia Social History Tobacco UseTypesPacks/DayYears [...] times a week11/01/2024How often do you attend hindu or faith services?Never11/01/2024Do you belong to any clubs or organizations such as hindu groups, unions, fraternal or athletic groups, or [...] have six or more drinks on one occasion?Lzeocq4508/13/2024Overall Financial Resource Strain (CARDIA)AnswerDate RecordedHow hard is it for you to pay for the very basics like food, housing, medical care, and heating?Not hard at all 04/09/2024HQ-2AnswerDate RecordedPatient Health Questionnaire-2 Score0 02/25/2025[facility] [place] of Occupational Health - Occupational Stress QuestionnaireAnswerDate RecordedDo you feel stress - tense, restless, nervous, or anxious, or unable to sleep at night because yourmind is troubled all the time - these days?Only a gfpzer0804/09/2024Exercise Vital SignAnswerDate Recorded On average, how many [...] steady place to sleep or slept in [facility] (including now)?No10/20/2022Housing Stability Vital SignAnswerDate RecordedIn the last 12 months, was there a time when you were not able to pay the mortgage or rent on time?No11/01/2024In the past 12 months, how many times have you moved where you were living? At any time in the past 12 months, were you homeless or living in a intermediate (including now)?No11/01/2024Sex and Gender InformationValueDate RecordedSex Assigned at BirthNot on fileLegal MqyPuig7406/22/2022 7:05 PM EDTGender Identity Not on fileSexual KgkesdcyongXmrvjsxe58/24/2023 8:33 PM EDTOccupationIndustryJob Start DateJob End DateRetiredNot on fileNot on fileNot on filedocumented as of this encounter Plan of Treatment DateTypeDepartmentCare Team (Latest Contact Info)Hswxaqhlsdw46/30/2025 2:15 PM ESTOffice Visit [facility] [address] [place] [address] Tevin Lake, DO [address] [place] [address] 05/28/2025 10:00 AM ESTOffice Visit [facility] [address] [place] [phone] Moy Villa MD [address] [place] [address] documented as of this encounter Visit Diagnoses Diagnosis Primary insomnia Persistent disorder of initiating or maintaining sleep documented in this encounter Additional Health Concerns AssessmentNoted TimePHQ-9 Depression Total Score: 1:00 PM EST documented as of this encounter Care Teams Team MemberRelationshipSpecialtyStart DateEnd Date Moy Villa MD [address] [place] [address] PCP - GeneralFamily Medicine09/28/22 Moy Villa MD [address] [place] [address] PCP - ACO [facility]01/07/23 Coral Ceballos NP [address] [place] [address] Nurse PractitionerFamily Ppkymtyj58/30/24 Radha Weiner, YING [address] [place] [address] Registered NurseFamily Medicine10/30/24documented as of this encounter
--- OUTSIDE RECORDS SUMMARY | 2025-03-11 09:12 | XMS_ITS | Clinical Summary ---
Author Organization [facility] Address [address] [place] [address] Care Team Providers Care Aviation Neuropsychologist Name Role Phone Eliot Villa MD Primary Care Provider [phone] Eliot Villa MD Unavailable [phone] Coral Ceballos KINDERGARTEN TEACHER ASSISTANT Unavailable [phone] Radha Weiner RN Unavailable [phone] Allergies Active AllergyReactionsCriticalityNoted DateCommentsAcetaminophenUnknown 05/04/2021 Other Reaction(s): Itching XbfbnanmphdEyrfilz38/20/2023Hydrocodone-ZbxlxllafvdbpKecxfqzPmd65/10/2024 Medications MedicationSigDispense QuantityRefillsLast FilledStart DateEnd DateStatus metoprolol [...] by mouth every 8 (eight) hours if uzbfry8803/04/2024ctive celecoxib (CeleBREX) 100 MG capsule Take 100 mg by mouth in the morning.Active chlorhexidine (Peridex) 0.12 % solution 5Active vcjdtnij-hvfbuojos-vafXSVRLjsjgn (Polydex) 3.5-30975-8.1 ointment ophthalmic ointment 5Active tamsulosin (Flomax) 0.4 [...] Procedure Ended Active Problems ProblemNoted DateDiagnosed DateElevated PSA02/05/20253135Qpwlwgonoir80/29/2025 Incomplete bladder sduqkvjj89/25/2025Male eemlsgrtzxff09/25/2025PH with obstruction/lower urinary tract tsbnhsok45/08/2024Engages in binge consumption of srhwsun6602/16/2024S/P PTCA (percutaneous transluminal coronary angioplasty) 02/16/2024MI 31.0-31.9,adult02/16/2024elayed hfuclbmxczx59/26/2024eyronie's yaxyucr5211/03/2023Sacroiliac joint dysfunction of right side08/21/2023History of percutaneous transluminal coronary hgtfkdbiber59/10/2024Mixed hyperlipidemia 04/19/2023Former nfhvxb3611/01/2022rteriosclerosis of coronary gdtgvx9810/27/2022 Lower back pain10/27/2022Sleep apnea10/27/2022Lumbar wxtakylongoaq96/20/2021 Assessment & Plan (08/13/2024 9:34 AM EDT): Patient did report some flare-up for pain but of her all pain meds well refills sent Orders: pregabalin (Lyrica) 200 MG capsule; Take 1 capsule (200 mg) by mouth every 12 (twelve) hours Krrqkjc58/17/2021rolapsed internal /03/2021lcohol abuse09/21/2020 Chronic pain04/29/2020ower urinary tract symptoms due to benign prostatic /15/2020 Assessment & Plan (08/13/2024 9:34 AM EDT): - Due for blood work for PSA and testosterone. - Blood work for PSA and testosterone to be conducted when due. Labs were sent to [facility]. Organic erectile bkrlrzvoupb97/16/2019 Assessment & Plan (08/13/2024 9:34 AM EDT): Patient reports needing a note from his PCP Dr. Villa regarding the medical necessity of his recent urologic procedure for implantation of penis prosthesis pump Primary pwjalpvwdunskn26/11/5404Eawvlpivycscie20/22/2019Artificial knee joint utogqna4705/08/2018Essential sgcqymyfrjag49/15/2018 Assessment & Plan (08/13/2024 9:34 AM EDT): - BP well controlled in office today. Continue current med regimen. Orders: metoprolol succinate XL (Toprol-XL) 25 MG 24 hr tablet; Take 1 tablet (25 mg) by mouth Daily Vitamin D puspbgqniq07/15/2018Atherosclerosis of coronary artery without angina fxvcikho14/16/2018Pure mddnikppgzjfpzlhiwlz46/16/2018 Assessment & Plan (08/13/2024 9:34 AM EDT): Orders: atorvastatin (Lipitor) 20 MG tablet; Take 1 tablet (20 mg) by mouth Daily Generalized anxiety miexmqmg68/15/2018BMI 32.0-32.9,adult12/13/2016Fatigue 02/12/2008 Resolved Problems ProblemNoted DateDiagnosed DateResolved DateAsymptomatic microscopic hematuria 5011/01/2024Screening PSA (prostate specific antigen)11/01/2024 11/01/2024Stage 3 chronic kidney dqnhnzd53Major depression, single ohgdxup51 Encounters DateTypeDepartmentCare MvwmRxhdlmezooj12/28/2025External Result Encounter [facility] External Department Unsolicited Tevin Lake DO 03/05/2025linisync Result Encounter [facility] External Department Unsolicited Provider, Generic External Data 03/05/2025linisync Result Encounter [facility] External Department Unsolicited Provider, Generic External Data 03/05/2025Patient Outreach [facility] [address] [place] [address] Radha Weiner RN 03/04/2025Refill [facility] [address] [place] [phone] Coral Ceballos NP Primary vefykbwi99/19/2025[facility] [address] [place] [phone] Coral Ceballos NP 02/26/2025Telephone [facility] [address] [place] [phone] Coral Ceballos NP lab ebodsrkt03/19/2025Telephone [facility] [address] [place] [phone] Stella Child MA 02/25/2025 1:20 PM ESTOffice Visit [facility] [address] [place] [address] Coral Ceballos NP Routine general medical examination at health care facility (Primary Dx); Low libido; Major depressive disorder with single episode, in partial remission; Primary insomnia; Medicare annual wellness visit, subsequent; BMI 31.0-31.9,adult02/25/20250770Hzaaso60/18/2025Patient Outreach [facility] [address] [place] [address] Radha Weiner, YING 02/24/2025Refill [facility] [address] [place] [address] Coral Ceballos NP Low gmxyeg6602/20/2025bstract [facility] [address] [place] [address] Eliot Villa MD 02/18/2025 10:30 AM ESTOffice Visit N[facility] [address] [place] [address] Tevin Lake, Pain in both knees, unspecified chronicity (Primary Dx); Trigger middle finger of left hand02/18/2025 8:[address] [facility] [address] [place] [address] 02/18/2025 8:25 AM ESTAncillary Procedure [facility] [address] [place] [address] 02/18/20252904Nhoegw06/05/2025Telephone [facility] [address] [place] [address] Coral Ceballos NP Form that needs xrrfpe9702/12/2025Patient Outreach [facility] [address] [place] [address] Radha Weiner, YING 02/05/2025bstract [facility] Medicine [address] [place] [address] Eliot Villa MD 02/05/2025Patient Outreach [facility] [address] [place] [address] Radha Weiner, YING 01/29/2025Results Follow-Up [facility] [address] [place] [phone] Coral Ceballos NP CBC auto differential, Magnesium, TSH, Additional followed-up results: 6 01/27/2025 3:00 PM EDTFollow-Up [facility] [address] [place] [phone] Coral Ceballos NP Right hip pain (Primary Dx); Low testosterone level in male; Low libido; Left hip pain; Elevated PSA; Left hand pain01/27/20250006Khueww87/17/2025Refill [facility] [address] [place] [phone] Christian Angulo, Benign prostatic hyperplasia without lower urinary tract vozakcpm32/13/2025 Results Follow-Up [facility] [address] [place] [phone] Coral Ceballos NP PSA SCREEN (YEARLY) W/REFLEX ([facility])01/02/2025Patient Outreach [facility] [address] [place] [address] Radha Weiner, YING 12/16/2024 3:20 PM EDTOffice Visit [facility] [address] [place] [address] Coral Ceballos NP Left hand weakness (Primary Dx); Alcohol abuse; Left hand pain; Screening for prostate xjjxtt3812/16/2024amboo flowsheet [facility] [address] [place] [address] Coral Ceballos NP 12/16/2024Travelfrom Last 3 Months Immunizations ImmunizationAdministration DatesNext DueInfluenza, High Dose Seasonal, Preservative Free01/06/2020Influenza, High-dose Seasonal, Quadrivalent, Preservative Free01/15/2022,03/02/2021,12/30/2019Influenza, Seasonal, Quadrivalent, Xoxaonayyv73/19/2023Influenza, injectable, MDCK, preservative free, nfouxhjnzvhx01/08/2018Influenza, injectable, quadrivalent, preservative free01/03/2019,01/08/2018,12/31/2016Influenza, recombinant, quadrivalent, injectable, preservative free01/19/2018Influenza, seasonal, intradermal, preservative free02/17/2016,02/26/2015Influenza, trivalent, gldqsagvby16/06/2024 Moderna Bivalent Booster Vtaqlbwukvm00/08/2022Pneumococcal Conjugate PCV 13 12/31/2016,02/26/2015Pneumococcal Polysaccharide FHCV24864392SJQS-CAF-0 (COVID-19) vaccine, mRNA, spike protein, LNP, bivalent, preservative free, 30 mcg/0.3 mLdose, kennedy-sucrose xzganarukib76/08/2081Flxt02/11/2019Zoster, Akdqlbvxzyg91/10/2019 Family History Medical HistoryRelationNameCommentsArthritisBrother 2WilliamMental illness Brother 3MickeyCancerFatherRichard OwenDepressionMotherGrace WilhelminaHearing lossMotherGrace WilhelminaBreast cancerNeg HxColon cancerNeg HxOvarian cancerNeg HxRelationNameStatusCommentsBrother 8y5Oisrgdt 2WilliamAliveBrother 3MickeyAlive FatherRichard OwenAliveMotherGrace WilhelminaAliveSisterx4 Social History Tobacco UseTypesPacks/DayYears UsedDateSmoking Tobacco: FormerCigarettesQuit: 1992Smokeless Tobacco: Never Tobacco Cessation:Counseling Given: Not Answered Alcohol UseStandard Drinks/WeekCommentsYes6 (1 standard drink = 0.6 oz pure alcohol)caffeine intake: 2-3 cups per day of hvyegeG0933 Health LiteracyAnswer Date RecordedHow often do you [...] times a week11/01/2024How often do you attend tenriism or jain services?Never11/01/2024Do you belong to any clubs or organizations such as tenriism groups, unions, fraternal or athletic groups, or [...] have six or more drinks on one occasion?Nhbdpl1108/13/2024Overall Financial Resource Strain (CARDIA)AnswerDate RecordedHow hard is it for you to pay for the very basics like food, housing, medical care, and heating?Not hard at all 04/09/2024HQ-2AnswerDate RecordedPatient Health Questionnaire-2 Score0 02/25/2025[facility] - Occupational Stress QuestionnaireAnswerDate RecordedDo you feel stress - tense, restless, nervous, or anxious, or unable to sleep at night because yourmind is troubled all the time - these days?Only a nsnesd6104/09/2024Exercise Vital SignAnswerDate Recorded On average, how many [...] steady place to sleep or slept in [facility] (including now)?No10/20/2022Housing Stability Vital SignAnswerDate RecordedIn the last 12 months, was there a time when you were not able to pay the mortgage or rent on time?11/01/2024In the past 12 months, how many times have you moved where you were living? At any time in the past 12 months, were you homeless or living in a usp (including now)?No11/01/2024Sex and Gender InformationValueDate RecordedSex Assigned at BirthNot on fileLegal LcfRvhv1206/22/2022 7:05 PM EDTGender Identity Not on fileSexual ZahthbiyusyWannfsha65/24/2023 8:33 PM EDTOccupationIndustryJob Start DateJob End DateRetiredNot on fileNot on fileNot on file Last Filed Vital Signs Vital SignReadingTime TakenCommentsBlood Zertzxtn448/7002/25/2025 1:21 PM EST Zkzrc531202/25/2025 1:21 PM SYXBblausmspay66.3 ??C (97.3 ??F)02/25/2025 1:21 PM ESTRespiratory Xswd301104/27/2024 1:21 PM ESTOxygen Seukitcwus72%02/25/2025 1:21 PM ESTInhaled Oxygen Concentration--Rpjdwd64.4 kg (206 lb)02/25/2025 1:21 PM EST Onhpvp003.7 cm (5' 8 )02/25/2025 1:21 PM ESTBody Mass Index31.32104/27/2024 1:21 PM EST Plan of Treatment DateTypeDepartmentCare Team (Latest Contact Info)Mpczhxdluzv37/30/2025 2:15 PM ESTOffice Visit [facility] [address] [place] [address] Tevin Lake, DO [address] [facility] [place] [address] 05/28/2025 10:00 AM ESTOffice Visit [facility] [address] [place] [address] Eliot Villa MD [address] [place] [address] Health MaintenanceDue DateLast DoneCommentsCT Fybtzvjcjijr68/10/1956FIT 1955FOBT1955 5449Vsagxnjuloxul31/10/1955FIT-DNA5105/28/2021, 03/27/2022, 03/21/2019, Additional history existsInfluenza Vaccine (#1) 611/09/2023, 01/26/2023, 01/15/2022, Additional history existsPostponed from 12/09/2024 (Patient Refused)Medicare Annual Wellness (AWV)02/25/2026 02/25/2025, 02/25/2025, 02/14/2024, Additional history existsColonoscopy 3Colorectal Cancer Fxdrrbrwk62/31/2033COVID-19 Vaccine Rtatkmwiusrh35/08/2022, 07/17/2021, 01/13/2021, Additional history exists Pneumococcal Vaccine: 65+ HxxuxJxlrcyuqw57/20/2023, 12/31/2016, 02/26/2015 Procedures Procedure NamePriorityDate/TimeAssociated DiagnosisCommentsMR LUMBAR SPINE WO SNZXOUAK63/28/2025 1:02 PM EST XR CHEST 2V105/05/2024 4:33 PM EST ALL CBC WITH AUTO QMZJYhfmnqm25/26/2025 2:00 PM EST ALL BASIC METABOLIC SHCWCPmaoker18/26/2025 2:00 PM EST CCF VNNXCjghmpg75/26/2025 2:00 PM EST SRMCOH PROTHROMBIN TIME INR W/O LMQKQgshody58/26/2025 2:00 PM EST CBC (INCLUDES DIFF/PLT)Uubihcc3202/26/2025 11:30 AM ESTPSA, TOTAL AND FREERoutine 02/26/2025 11:30 AM ESTPR ARTHROCENTESIS ASPIR&/INJ SMALL JT/BURSA W/O USRoutine 02/18/2025 11:06 AM EST Trigger middle finger of left hand XR LUMBAR SPINE 2-3 JNTBRIbuhyau18/11/2025 8:21 AM EST Pain in both knees, unspecified chronicity XR HIPS BILATERAL 2 VW WITH OR WITHOUT ENNLWMPpulveq57/11/2025 8:21 AM EST Pain in both knees, unspecified chronicity PSA SCREEN (YEARLY) W/REFLEX ([facility])Qhmdfkq1501/20/2025 8:03 AM EDT Screening for prostate cancer AMLCOLM SCREEN W/COUHPLBnwxajp80/13/2025 8:03 AM EDT Left hand weakness Left hand pain RHEUMATOID FGZANSBmmdvwt49/13/2025 8:03 AM EDT Left hand weakness Left hand pain TESTOSTERONE FREE AND YUWFMKvnbsyq57/13/2025 8:03 AM EDT Low libido COMPREHENSIVE METABOLIC RMVENVljfufs19/13/2025 8:03 AM EDT Peripheral vascular disease, unspecified IRON AND TOTAL IRON BINDING HPRBOJCQGspidxw42/13/2025 8:03 AM EDT Peripheral vascular disease, unspecified LIPID EUEZLXoqwjih86/13/2025 8:03 AM EDT Pure hypercholesterolemia VITAMIN D 25 HYDROXY LSJXJOlufpud92/13/2025 8:03 AM EDT Vitamin D deficiency URIC IQRFWlgyydm98/13/2025 8:03 AM EDT Lumbar radiculopathy DXHHkcbvpb73/13/2025 8:03 AM EDT Essential hypertension KERRXAWMYNrkdmkw35/13/2025 8:03 AM EDT Routine general medical examination at health care facility Essential hypertension CBC WITH AUTO ZKGTVWZRVKEOOnhvodu19/13/2025 8:03 AM EDT Adult general medical examination WZNMLPLLPNCAjyxvkt74/31/2023 12:00 PM EST LAB COLOGUARD?? COLON CANCER PPQBAYCtgiibg88/18/2022 from Last 3 Months or Most Recently Relevant to Health Maintenance Results * MR lumbar spine wo contrast [...] M.D. ??03/07/2025 1:09 PM ? Dictation Location: [place] [address] ? Transcribed By: ? PWS ?03/07/25 1309 ? Dictated By: ?Feroz Hartmann II, MD ?03/07/25 1302 ? Signed By: <Electronically signed by Feroz Hartmann II, MD in OV> ? 11/28/25 1309 Narrative 03/07/2025 1:11 PM EST [facility] ?[facility] [place] ?[address] ? [place] [address] ? MRI Report ? Signed ? Patient: Reel,Rob A ?MR#: [id number] ?? 37 ? : 1955 ?Acct:[id number] ? Age/Sex: 69 / M ?ADM Date: 03/07/25 ? Loc: ICMR ?Room: ?Type: REG CLI ?? Attending Dr: Tevin Lake DO ?? Copies to: Tevin Lake, DO ? Ordering Provider: Tevin Lake, DO ?? Date of Service: 03/07/25 ?? [...] Procedure Note Feroz Hartmann MD - 03/07/2025 [facility] [place] [address] [place] [address] MRI Report Signed Patient: Rob Hernandez AMR#: [id number] : 5Acct:[id number] Age/Sex: 69 / MADM Date: 03/07/25 Loc: [facility] Room:Type: REG CLI Attending Dr: Tevin Lake DO Copies [...] mild mass effect on the exiting right S2qtvbg roots. This is slightly worse when compared [...] mild mass effect on the exiting right J3gkqzb roots. This is slightly worse when compared to the prior exam. At L5-S1: There is a broad-based disc bulge with facet hypertrophy andendplate osteophyte formation. There is moderate to severe left and moderate right neuralforaminal narrowing with mild mass effect on the exiting left L5 nerve roots. This is slightly worse. Impression dictated by: Feroz Hartmann M.D. 03/07/2025 1:09 PM Dictation Location: [place] [address] Transcribed By: [facility] 03/07/25 1309 Dictated By: Feroz Hartmann II, MD 03/07/25 1302 Signed By: <Electronically signed by Feroz Hartmann II, MD inOV> 03/07/25 1309 Authorizing ProviderResult TypeResult StatusTevin Lake [facility] PROCEDURES Final Result * XR CHEST 2V (03/05/2025 4:33 PM EST)Anatomical RegionLateralityModalityOther Specimen (Source)Anatomical Location / LateralityCollection Method / Volume Collection TimeReceived Time03/05/2025 4:33 PM EST Narrative 03/05/2025 4:35 PM EST [facility] ?[address] ? [place] [address] ?XRay Report ? Signed ? Patient: ROB HERNANDEZ ?MR#: [id number] ?? : 1955 ?Acct:[id number] ?? Age/Sex: 69 / M ?ADM Date: 03/05/25 ?? Loc: PST ? Attending Dr: Norman Wakefield M.D. ? Ordering Physician: Norman Wakefield M.D. ?? Date of Service: 03/05/25 ?? Procedure(s): XR chest 2V ?? Accession Number(s): [id number] ? cc: ELIOT VILLA ; Norman Wakefield M.D. ? [facility] ? [address] ? [place] [address] ? Patient Name: ?? ROB ??REEL ? MRN: [facility]:[id number] ? date: 1955 ?Sex: M ?? Assigned Patient Location: SURGOUT ?? Current Patient Location: SURGOUT ?? Accession/Order Number: [id number] ?? Exam Date: 03/05/2025 ??14:10 ?Report Date: 03/05/2025 ??16:33 ? At the request of: ?? NORMAN ??WAKEFIELD ??MD ? Procedure: ??XR chest 2V ? [...] Dictation Location: RADIO-PC-29 ? Electronically authenticated by: [id number] ??Y ?? Date: 03/05/2025 ??16:33 ? Dictated By: ?Deny Guadarrama M.D. ? Signed By: ?03/05/25 1635 ? DD/ 1633 ? TD/TT: ? Retail Store Assistant: Procedure Note Radiology, Radiologist, MD - 03/05/[address] [address] XRay Report Signed Patient: ROB HERNANDEZMR#: [id number] : 5Acct:[id number] Age/Sex: 69 / MADM Date: 03/05/25 Loc: PST Attending Dr: Norman Wakefield M.D. Ordering Physician: Norman Wakefield M.D. Date of Service: 03/05/25 Procedure(s): XR chest 2V Accession Number(s): [id number] cc: ELIOT VILLA ; Norman Wakefield M.D. The [address] [address] Patient Name: ROB HERNANDEZ MRN: [facility]:[id number] date: 1955 Sex: M Assigned Patient Location: SURGOUT Current Patient Location: SURGOUT Accession/Order Number: [id number] Exam Date: 03/05/2025 14:10 Report Date: 03/05/2025 16:33 At the request of: NORMAN WAKEFIELD MD Procedure: XR chest 2V PA AND LATERAL CHEST: CLINICAL HISTORY: Preop exam COMPARISON: None FINDINGS: Unremarkable cardiomediastinal silhouette. Lungs clear. No effusion or pneumothorax. Degenerative changes of thoracic spine. XR/XR chest 2V IMPRESSION: NO ACUTE CARDIOPULMONARY ABNORMALITY. Impression dictated by: Deny Guadarrama M.D. 03/05/2025 4:33 PM Dictation Location: [place] [address] Electronically authenticated by: [id number] Y Date: 6:33 Dictated By: Deny Guadarrama M.D. Signed By:03/05/251634 DD/ 32 TD/TT: Retail Store Assistant: Authorizing ProviderResult TypeResult StatusGeneric External Data Provider CLINISYNC IMAGINGFinal Result * SRMCOH PROTHROMBIN TIME INR W/O COUM (03/05/2025 2:00 PM EST)ComponentValueRef RangeTest MethodAnalysis TimePerformed AtPathologist SignaturePROTHROMBIN TIME 11.09.0 - 11.6 secTBHTBH INR1.04TBHComment: DESIRED INR: 2.0-3.0 CONDITIONS NOT LISTED BELOW 2.5-3.5 FOR PROSTHETIC HEART VALVE REPLACEMENT 2.5-3.5 RECURRENT THROMBOSIS Specimen (Source)Anatomical Location / LateralityCollection Method / Volume Collection TimeReceived Time03/05/2025 2:00 PM EST03/05/2025 2:11 PM EST Narrative CLINISYNC - 03/05/2025 2:50 PM EST Authorizing ProviderResult TypeResult StatusGeneric External Data Provider CLINISYNCFinal ResultPerforming OrganizationAddressCity/State/ZIP CodePhone Number [facility] * [facility] APTT (03/05/2025 2:00 PM EST)ComponentValueRef RangeTest MethodAnalysis TimePerformed AtPathologist SignaturePARTIAL THROMBOPLASTIN TIME25.222.3 - 36.2 secTBHSpecimen (Source)Anatomical Location / LateralityCollection Method / VolumeCollection TimeReceived Time03/05/2025 2:00 PM EST03/05/2025 2:11 PM EST Narrative ANDREEANC - 03/05/2025 2:50 PM EST Authorizing ProviderResult TypeResult StatusGeneric External Data Provider CLINISYNCFinal ResultPerforming OrganizationAddressCity/State/ZIP CodePhone Number [facility] * (ABNORMAL) ALL CBC WITH AUTO DIFF (03/05/2025 2:00 PM EST)ComponentValueRef RangeTest MethodAnalysis TimePerformed AtPathologist SignatureTBH WBC6.94.0 - 11.0 10 3/uLTBHTBH RBC5.144.70 - 6.10 10 6/uLTBHTBH HGB14.114.0 - 18.0 g/dLTBH TBH HCT43.942.0 - 54.0 %TBHTBH MCV85.480.0 - 94.0 fLTBHTBH MCH27.425.9 - 34.0 pgTBHTBH MCHC32.129.9 - 35.2 g/dLTBHTBH RDW19.3(H)11.0 - 15.0 %TBHTBH KXZ087 150 - 450 10 3/uLTBHTBH MPV10.39.5 - [...] Data Provider CLINISYNCFinal ResultPerforming OrganizationAddressCity/State/ZIP CodePhone Number [facility] * ALL BASIC METABOLIC PANEL (03/05/2025 2:00 PM EST)ComponentValueRef RangeTest MethodAnalysis TimePerformed AtPathologist UsjvkwjwfQMOMID996391 - 145 mmol/L TBHPOTASSIUM4.83.5 - 5.1 mmol/WNGIXGEETMQI64344 - 107 mmol/LTBHCARBON DIOXIDE 31.521.0 - 32.0 mmol/LTBHANION GAP8.1SWHCAQVYOK50737 - 106 mg/dLTBHBLOOD UREA TEHXLWBJ24.07.0 - 18.0 mg/dLTBHCREATININE1.110.70 - 1.30 mg/dLTBHTBH EGFR-AF ANGUILLAN>60>=60 mL/min/1.73m 2TBHTBH EGFR-NON AF ANGUILLAN>60>=60 mL/min/1.73m 2TBHBUN CREATININE RATIO13.4JTMXHHBEDE0.98.5 - 10.1 mg/dLTBHSpecimen (Source) Anatomical Location / LateralityCollection Method / VolumeCollection Time Received Time03/05/2025 2:00 PM EST03/05/2025 2:11 PM EST Narrative ANDREEANC - 03/05/2025 3:12 PM EST Authorizing ProviderResult TypeResult StatusGeneric External Data Provider CLINISYNCFinal ResultPerforming OrganizationAddressty/State/ZIP CodePhone Number [facility] TB * CBC and differential (02/26/2025 11:30 AM EST)Specimen (Source)Anatomical Location / LateralityCollection Method / VolumeCollection TimeReceived Time BloodVenous blood specimen / Unknown Narrative Authorizing ProviderResult TypeResult StatusJessica R Tucker NPLAB BLOOD ORDERABLESFinal Result * PSA, total and free (02/26/2025 11:30 AM EST)Specimen (Source)Anatomical Location / LateralityCollection Method / VolumeCollection TimeReceived Time BloodVenous blood specimen / Unknown Narrative Authorizing ProviderResult TypeResult StatusCoral Ceballos NPLAB BLOOD ORDERABLESFinal Result * DC ARTHROCENTESIS ASPIR&/INJ SMALL JT/BURSA W/O US (02/18/2025 [...] Result * (ABNORMAL) PSA SCREEN (YEARLY) W/REFLEX ([facility]) (01/20/2025 8:03 AM EDT) ComponentValueRef RangeTest MethodAnalysis TimePerformed AtPathologist SignaturePSA SCREEN (YEARLY) W/IUONRM21.960(H)0.000 - 4.000 ng/mL01/20/2025 1:02 PM [facility] CtrComment: Serial tumor marker results determined by assays using different manufacturers or methods may not be comparable. [facility] Laboratory edgerman and method: Applied Identity DXI, CHEMILUMINESCENT IMMUNOASSAY. Specimen (Source)Anatomical Location / LateralityCollection Method / Volume Collection TimeReceived TimeOtherTopography unknown / Ndbvqvx6701/20/2025 8:03 AM EDT1 8:03 AM EDT Narrative Authorizing ProviderResult TypeResult StatusJessjerry Ceballos NPLAB BLOOD ORDERABLESFinal ResultPerforming OrganizationAddressCity/State/ZIP CodePhone Number [facility] [address] [place] [address], [facility] [address] [place] [address] * (ABNORMAL) CBC auto differential (01/20/2025 8:03 AM EDT)ComponentValueRef RangeTest MethodAnalysis TimePerformed AtPathologist IhdvhqtupHXO57.1(H)4.1 - 10.5 [CFU]/mL01/20/2025 12:03 PM [facility] CtrUNCORRECTED WHITE BLOOD COUNT14.1(H)4.1 - 10.5 10*3/uL01/20/2025 12:03 PM [facility] CtrRBC5.093.90 - 5.60 10*6/uL01/20/2025 12:03 PM [facility] XirVELPXUMVBQ81.113.0 - 17.0 g/dL01/20/2025 12:03 PM EDT [facility] HwjFMYPLBURCD68.238.8 - 50.0 %01/20/2025 12:03 PM [facility] TxtAQD87.0(L)83.5 - 101 fL01/20/2025 12:03 PM [facility] YgfRMU97.7(L)27.5 - 35.2 pg01/20/2025 12:03 PM [facility] SqhHRMN75.532.5 - 35.6 g/dL01/20/2025 12:03 PM [facility] CtrRED CELL DISTRIBUTION WIDTH, RDW19.5(H)12.0 - 14.8 %01/20/2025 12:03 PM [facility] CtrPLATELET ASRJT149 150 - 450 10*3/uL01/20/2025 12:03 PM [facility] CtrMEAN PLATELET VOLUME, MPV8.16.6 - 10.1 fL01/20/2025 12:03 PM [facility] CtrNEUTROPHILS, %74.2. %01/20/2025 12:03 PM [facility] CtrLYMPHOCYTES, %15.9. %01/20/2025 12:03 PM [facility] CtrMONOCYTE/MACROPHAGE, %9.0. %01/20/2025 12:03 PM [facility] CtrEOSINOPHILS, %0.6. %01/20/2025 12:03 PM [facility] CtrBASOPHILS, %0.3. %01/20/2025 12:03 PM [facility] CtrNRBC0.00 - 0.5 /100{WBC}01/20/2025 12:03 PM [facility] AtpKQSDXKTCYGV58.5(H)1.8 - 7.7 10*3/uL01/20/2025 12:03 PM [facility] CtrLYMPHOCYTES2.31.00 - 4.8 10*3/uL01/20/2025 12:03 PM [facility] CtrMONOCYTES1.3(H)0.0 - 0.8 10*3/uL 01/20/2025 12:03 PM [facility] CtrEOSINOPHILS0.10.0 - 0.45 10*3/uL01/20/2025 12:03 PM [facility] CtrBASOPHILS0.00.0 - 0.2 10*3/uL01/20/2025 12:03 PM [facility] CtrSpecimen (Source)Anatomical Location / LateralityCollection Method / VolumeCollection TimeReceived TimeBlood (Blood)01/20/2025 8:03 AM EDT1 8:03 AM EDT Narrative Authorizing ProviderResult TypeResult StatusEliot GARCÍA BLOOD ORDERABLESFinal ResultPerforming OrganizationAddressCity/State/ZIP CodePhone Number [facility] [address] [place] [address], [facility] [address] [place] [address] * (ABNORMAL) Iron and TIBC (01/20/2025 8:03 AM EDT)ComponentValueRef RangeTest MethodAnalysis TimePerformed AtPathologist QjihvzgiyEVAO53(L)50 - 212 ug/dL 01/20/2025 12:21 PM [facility] CtrTOTAL IRON BINDING AWCDQNBL774736 - 450 ug/dL01/20/2025 12:21 PM [facility]tr% IRON SATURATION5.1(L)20 - 50 %01/20/2025 12:21 PM [facility] ZqjVZPEHYNPJUQ703883 - 362 mg/dL01/20/2025 12:21 PM [facility] CtrSpecimen (Source)Anatomical Location / Laterality Collection Method / VolumeCollection TimeReceived TimeOtherTopography unknown / Sjaixgq7501/20/2025 8:03 AM EDT1 8:03 AM EDT Narrative Authorizing ProviderResult TypeResult StatusBranthony GARCÍA BLOOD ORDERABLESFinal ResultPerforming OrganizationAddressCity/State/ZIP CodePhone Number [facility] [address] [place] [address], [facility] [address] [place] [address] * Vitamin D 25 hydroxy Total (01/20/2025 8:03 AM EDT)ComponentValueRef RangeTest MethodAnalysis TimePerformed AtPathologist SignatureVITAMIN D 25 HYDROXY TOTAL87.330 - 100 ng/mL01/20/2025 12:48 PM [facility] Comment: VITAMIN D STATUS ?? 25(OH)VITAMIN D RANGE (ng/mL) Deficient <20 Insufficient 20 to <30 Sufficient ? 30 to 100 Reference: Chester MF,Speedy NC, Noemy AMAYA, et al. Evaluation,treatment, and prevention of vitamin D deficiency; an Endocrine Society clinical practice guideline. JCEM. 2010; 96(7):1911-30. Specimen (Source)Anatomical Location / LateralityCollection Method / Volume Collection TimeReceived TimeOtherTopography unknown / Qzjvyji6301/20/2025 8:03 AM EDT1 8:03 AM EDT Narrative Authorizing ProviderResult TypeResult StatusEliot Villa [facility] BLOOD ORDERABLESFinal ResultPerforming OrganizationAddressty/[facility] CodePhone Number [facility] [address] [place] [address], [place] [address] * Rheumatoid factor (01/20/2025 8:03 AM EDT)ComponentValueRef RangeTest Method Analysis TimePerformed AtPathologist SignatureRHEUMATOID CLTPBW17.0<14.0 01/21/2025 3:36 AM EDTFIRELANDSComment: Performed at: ??[facility] - [facility] [address] ??[id number] Valve And Regulator Repairer: Sergio Fox PhD, Phone: ??[phone] Specimen (Source)Anatomical Location / LateralityCollection Method / Volume Collection TimeReceived TimeOtherTopography unknown / Hqvnqfv7801/20/2025 8:03 AM EDT1 8:03 AM EDT Narrative Authorizing ProviderResult TypeResult StatusCoral Ceballos [facility] BLOOD ORDERABLESFinal ResultPerforming OrganizationAddressty/[facility]/ZIP CodePhone Number [address] * Testosterone, free, total (01/20/2025 8:03 AM EDT)ComponentValueRef RangeTest MethodAnalysis TimePerformed AtPathologist SignatureTESTOSTERONE,405182 - 916 ng/dL01/22/2025 3:07 AM EDTFIRELANDSComment: Adult male reference interval is based on a population of healthy nonobese males (BMI <30) between 19 and 39 years old. Haley et.al. JCEM 2017,102;5031-6848. PMID: [id number]. TESTOSTERONE,FREE3.06.6 - 18.1 pg/mL01/22/2025 3:07 AM EDTFIRELANDSComment: Performed at: ??[facility] ??[id number] Valve And Regulator Repairer: Sergio Fox PhD, Phone: ??[phone] Performed at: ??[facility] [address] ??[id number] Valve And Regulator Repairer: Siddhartha Lomeli MD, Phone: ??[phone] Specimen (Source)Anatomical Location / LateralityCollection Method / Volume Collection TimeReceived TimeOtherTopography unknown / Xjhqijp0901/20/2025 8:03 AM EDT1 8:03 AM EDT Narrative Authorizing ProviderResult TypeResult StatusEliot Villa MDL[facility] BLOOD ORDERABLESFinal ResultPerforming OrganizationAddressCity/State/[facility] CodePhone Number [address] [address], * [place] (01/20/2025 8:03 AM EDT)ComponentValueRef RangeTest MethodAnalysis Time Performed AtPathologist SignatureANTINUCLEAR ABS, IFANegative.01/21/2025 5:08 PM EDTFIRELANDSComment: Negative <1:80 ? Borderline ??1:80 Positive >1:80 ICAP nomenclature: AC-0 For more information about Hep-2 cell patterns use ANApatterns.org, the official website for the International Consensus on Antinuclear Antibody ([place]) Patterns (ICAP). Performed at: ??[facility] [address] ??[id number] Valve And Regulator Repairer: Sergio Fox PhD, Phone: ??[phone] Specimen (Source)Anatomical Location / LateralityCollection Method / Volume Collection TimeReceived TimeOtherTopography unknown / Gifojet7301/20/2025 8:03 AM EDT1 8:03 AM EDT Narrative Authorizing ProviderResult TypeResult StatusCoral Moranuse [facility] BLOOD ORDERABLESFinal ResultPerforming OrganizationAddressty/State/ZIP CodePhone Number [place] [address] [place] [address], * Uric acid (01/20/2025 8:03 AM EDT)ComponentValueRef RangeTest MethodAnalysis TimePerformed AtPathologist SignatureURIC ACID4.84.4 - 7.6 mg/dL01/20/2025 12:21 PM [facility] CtrSpecimen (Source)Anatomical Location / LateralityCollection Method / VolumeCollection TimeReceived TimeOther Topography unknown / Sqvpmtg2301/20/2025 8:03 AM EDT1 8:03 AM EDT Narrative Authorizing ProviderResult TypeResult StatusEliot Villa MDLAB BLOOD ORDERABLESFinal ResultPerforming OrganizationAddressCity/State/ZIP CodePhone Number [address] [place] [address], [facility] [address] [place] [address] * TSH (01/20/2025 8:03 AM EDT)ComponentValueRef RangeTest MethodAnalysis Time Performed AtPathologist SignatureTHYROID STIMULATING HORMONE1.980.45 - 5.33 u[iU]/mL01/20/2025 12:36 PM [facility] CtrSpecimen (Source) Anatomical Location / LateralityCollection Method / VolumeCollection Time Received TimeOtherTopography unknown / Xyptotm2101/20/2025 8:03 AM EDT1 8:03 AM EDT Narrative Authorizing ProviderResult TypeResult StatusEliot Villa MDLAB BLOOD ORDERABLESFinal ResultPerforming OrganizationAddressCity/State/ZIP CodePhone Number [address] [place] [address], [facility] [address] [place] [address] * Magnesium (01/20/2025 8:03 AM EDT)ComponentValueRef RangeTest MethodAnalysis TimePerformed AtPathologist SignatureMAGNESIUM2.41.9 - 2.7 mg/dL01/20/2025 12:21 PM [facility] CtrSpecimen (Source)Anatomical Location / LateralityCollection Method / VolumeCollection TimeReceived TimeOther Topography unknown / Bkisokf1801/20/2025 8:03 AM EDT1 8:03 AM EDT Narrative Authorizing ProviderResult TypeResult StatusEliot GARCÍA BLOOD ORDERABLESFinal ResultPerforming OrganizationAddressCity/State/ZIP CodePhone Number [facility] [address] [facility] [place] [address], [facility] [address] [place] [address] * (ABNORMAL) Lipid panel (01/20/2025 8:03 AM EDT)ComponentValueRef RangeTest MethodAnalysis TimePerformed AtPathologist QzscadtdkWUFHMOUUAAO659(L)140 - 200 mg/dL01/20/2025 12:21 PM [facility] CtrComment: Chol less than 200 mg/dl ?low risk Chol 201-239 mg/dl ?borderline risk Chol 240 mg/dl and greater ?high risk HDL VPOAYHMYUIQ2451 - 92 mg/dL01/20/2025 12:21 PM [facility] CtrComment: HDL CHOL ATP-III CLASSIFICATION ? Cardiovascular ? Risk HDL > or equal to 60 mg/dL LOW HDL < 40 mg/dL HIGH TRIGLYCERIDE W/FHYFAK565 - 149 mg/dL01/20/2025 12:21 PM [facility] CtrComment: TRIG ATP III CLASSIFICATION TRIG less than 150 mg/dL ?Normal TRIG 150-199 mg/dL ?Borderline high TRIG 200-500 mg/dL ?High TRIG greater than 500 mg/dL ?? Very high Standard traceable to the Center for Disease Conrtrol and Prevention (CDC) test method. LDL CHOLESTEROL,TZFTAEMPEF117 - 100 mg/dL01/20/2025 12:21 PM [facility] CtrComment: LDL ATP III CLASSIFICATION LDL less than 100 mg/dL ? Optimal LDL 100-129 mg/dL ? Near or above optimal LDL 130-159 mg/dL ? Borderline high LDL 160-189 mg/dL ? High LDL greater than 189 mg/dL ?Very high VLDL OBRFXATQDTB72zy/dL01/20/2025 12:21 PM [facility] CHOL/HDL RATIO3.1<5.010 12:21 PM [facility] Specimen (Source)Anatomical Location / LateralityCollection Method / Volume Collection TimeReceived TimeOtherTopography unknown / Dvhljso3501/20/2025 8:03 AM EDT1 8:03 AM EDT Narrative Authorizing ProviderResult TypeResult StatusEliot GARCÍA BLOOD ORDERABLESFinal ResultPerforming OrganizationAddressCity/State/ZIP CodePhone Number [facility] [address] [place] [address], [facility] [address] [place] [address] * (ABNORMAL) Comprehensive metabolic panel (01/20/2025 8:03 AM EDT)Component ValueRef RangeTest MethodAnalysis TimePerformed AtPathologist SignatureGlucose 9870 - 100 mg/dL01/20/2025 12:21 PM [facility] CtrComment: Random Glucose Reference Range is dependent on time and content of last meal. Glucose of more than 200 mg/dL in a nonstressed, ambulatory subject supports the diagnosis of Diabetes Mellitus. ADA recommended reference range WPS413 - 25 mg/dL01/20/2025 12:21 PM [facility] CtrCREATININE 1.100.70 - 1.30 mg/dL01/20/2025 12:21 PM [facility] ESTIMATED GFR>60. 12:21 PM [facility] BywCvorud449 136 - 145 mmol/L1 12:21 PM [facility] CtrPotassium, Bld4.43.5 - 5.1 mmol/L1 12:21 PM [facility] Mmzpozqi1945 - 107 mmol/L1 12:21 PM [facility] Carbon Frjhazy90.1(H)21.0 - 31.0 mmol/L1 12:21 PM [facility] CtrAnion Gap11.36.0 - 15.010 12:21 PM [facility] CtrCalcium9.08.6 - 10.3 mg/dL01/20/2025 12:21 PM [facility] CtrTOTAL PROTEIN7.06.4 - 8.9 g/dL01/20/2025 12:21 PM [facility] CtrALBUMIN LEVEL3.93.5 - 5.7 g/dL01/20/2025 12:21 PM EDT [facility] CtrGLOBULIN3.1g/dL01/20/2025 12:21 PM [facility] CtrALBUMIN/GLOBULIN RATIO1.310 12:21 PM [facility] CtrBILIRUBIN,TOTAL0.70.3 - 1.0 mg/dL01/20/2025 12:21 PM EDT [facility] CtrASPARTATE AMINO TPGIJSSPQKP2283 - 39 U/L1 12:21 PM [facility] CtrALANINE MBYXVWSUIWESMOAV358 - 52 U/L 01/20/2025 12:21 PM [facility] CtrALKALINE KBCKIGSRYFH1503 - 104 U/L1 12:21 PM [facility] CtrSpecimen (Source) Anatomical Location / LateralityCollection Method / VolumeCollection Time Received TimeOtherTopography unknown / Iapiohe1001/20/2025 8:03 AM EDT1 8:03 AM EDT Narrative Authorizing ProviderResult TypeResult StatusBranthony Villa MDLAB BLOOD ORDERABLESFinal ResultPerforming OrganizationAddressCity/State/ZIP CodePhone Number [facility] [address] [place] [address], [facility] [address] [place] [address] * Colonoscopy (05/10/2022 12:00 PM EST)Anatomical RegionLateralityModality EndoscopySpecimen (Source)Anatomical Location / LateralityCollection Method / VolumeCollection TimeReceived Time01/ 12:00 PM EST Narrative 06/14/2022 12:00 PM EST PERFORMED AT [facility] LOCATION:[id number] Diverticulosis Procedure Note CONVERSION, GENERIC - 08/25/2022 PERFORMED AT [facility] LOCATION:[id number] Diverticulosis Authorizing ProviderResult TypeResult StatusAmy Warchol NPENDOSCOPY [...] (Deepali Montoya al, N Engl J Med 2014;370(14):3715-6967.) Cologuard may produce a false negative or false positive result (no colorectal cancer or precancerous polyp present at colonoscopy follow up). A negative Cologuard test result does not guarantee the absence of CRC or advanced adenoma (pre-cancer). The current Cologuard screening interval is every 3 years. ([place] [employer] Society and U.S. Multi-Society Task Force). Cologuard performance data in a 10,000 patient pivotal study using colonoscopy as the reference method can be accessed at the following location: www.En Noir.com/results. Additional description of the Cologuard test process, warnings and precautions can be found at www.cologuard.com. Specimen (Source)Anatomical Location / LateralityCollection Method / Volume Collection TimeReceived Time03/27/2022 Narrative Authorizing ProviderResult TypeResult StatusCarrie Taylor [facility] MOLECULAR DIAGNOSTICS ORDERABLESFinal ResultPerforming OrganizationAddressCity/State/ZIP CodePhone Number [facility] from Last 3 Months or Most Recently Relevant to Health Maintenance Insurance Care Teams Team MemberRelationshipSpecialtyStart DateEnd Date Eliot Villa MD [address] [place] [address] PCP - GeneralFamily Medicine09/28/22 Eliot Villa MD [address] [place] [address] PCP - ACO [facility]01/07/23 Coral Ceballos NP [address] [place] [address] Nurse PractitionerFatxly Oasiwuor73/30/24 Radha Weiner, YING [address] [place] [address] Registered NurseMemorial [facility] And [facility]10/30/24
--- OUTSIDE RECORDS SUMMARY | 2025-03-11 09:13 | XMS_ITS | Encounter Summary ---
Author Organization [facility] Address [address] [place] [address] Care Team Providers Care Trial Lawyer Name Role Phone Moy Villa MD Primary Care Provider Moy Villa MD Unavailable [phone] Coral Ceballos TURN DOWN ATTENDANT Unavailable [phone] Radha Weiner RN Unavailable [phone] Encounter Details DateTypeDepartmentCare Team (Latest Contact Info)Hvyxjarilyu11/19/2025Telephone [facility] [address] [place] [address] Stella Child MA Social History Tobacco UseTypesPacks/DayYears [...] times a week11/01/2024How often do you attend congregational or uatsdin services?Never11/01/2024Do you belong to any clubs or organizations such as congregational groups, unions, fraEx[employer] or athletic groups, or school groups?Yes11/01/2024How often [...] have six or more drinks on one occasion?Mmurkj9308/13/2024Overall Financial Resource Strain (CARDIA)AnswerDate RecordedHow hard is it for you to pay for the very basics like food, housing, medical care, and heating?Not hard at all 04/09/2024HQ-2AnswerDate RecordedPatient Health Questionnaire-2 Score0 02/25/2025[facility] [place] of Occupational Health - Occupational Stress QuestionnaireAnswerDate RecordedDo you feel stress - tense, restless, nervous, or anxious, or unable to sleep at night because yourmind is troubled all the time - these days?Only a jnimnc3204/09/2024Exercise Vital SignAnswerDate Recorded On average, how many [...] steady place to sleep or slept in [facility] (including now)?No10/20/2022Housing Stability Vital SignAnswerDate RecordedIn the last 12 months, was there a time when you were not able to pay the mortgage or rent on time?No11/01/2024In the past 12 months, how many times have you moved where you were living? At any time in the past 12 months, were you homeless or living in a fci (including now)?No11/01/2024Sex and Gender InformationValueDate RecordedSex Assigned at BirthNot on fileLegal StcLzof3106/22/2022 7:05 PM EDTGender Identity Not on fileSexual TzmtmaknmbzCbtpqtfh20/24/2023 8:33 PM EDTOccupationIndustryJob Start DateJob End DateRetiredNot on fileNot on fileNot on filedocumented as of this encounter Progress Notes * Radha Weiner RN - 02/26/2025 9:15 AM EST <February 26, 2025, 09:17 - Rdaha Weiner RN> Call to [facility] for follow up <February 26, 2025, [...] incorrectly marked from our office. Tuan Ceballos TURN DOWN ATTENDANT signed form. They would like an updated form that states the needles are for his testosterone injections. documented in this encounter Miscellaneous Notes * Telephone Encounter - Stella Child MA - 02/26/2025 10:17 AM EST Letter wrote faxed to number with [place]. * Telephone Encounter - Stella Child MA - 02/26/2025 8:58 AM EST Lakia Larsen TURN DOWN ATTENDANT at the [facility] stating that the form we filled out stated he has type 2 DM and is not currently taking any medications for it and was asking if he was doing diet control for his DM. Call back number [phone]. Looking through patients chart he is not a DM and the form Coral Ceballos filled out had anywhere tomark off that he was a DM. The form just asked about his medications and if he was cleared to work. Spoke with patients BARRON Garcia on what is going on and she will contact [facility]. documented in this encounter Plan of Treatment DateTypeDepartmentCare Team (Latest Contact Info)Lsgqwqvhsvf41/30/2025 2:15 PM ESTOffice Visit [facility] [address] [place] [address] Tevin Lake, DO [address] [place] [address] 05/28/2025 10:00 AM ESTOffice Visit [facility] [address] [place] [phone] Moy Villa MD [address] [place] [address] documented as of this encounter Visit Diagnoses Diagnosis Low testosterone level in male documented in this encounter Additional Health Concerns AssessmentNoted TimePHQ-9 Depression Total Score: 1:00 PM EST documented as of this encounter Care Teams Team MemberRelationshipSpecialtyStart DateEnd Date Moy Villa MD [address] [place] [address] PCP - GeneralFamily Medicine09/28/22 Moy Villa MD [address] [place] [address] PCP - ACO [facility]01/07/23 Coral Ceballos TURN DOWN ATTENDANT [address] [place] [address] Nurse PractitionerFamily Fmocvqlu61/30/24 Radha Weiner, YING [address] [place] [address] Registered NurseFamily Medicine10/30/24documented as of this encounter
--- OUTSIDE RECORDS SUMMARY | 2025-03-11 09:13 | XMS_ITS | Encounter Summary ---
Author Organization [facility] Address [address] [place] [address] Care Team Providers Care Crime Prevention Worker Name Role Phone Moy Villa MD Primary Care Provider [phone] Moy Villa MD Unavailable [phone] Coral Ceballos ENGINEER SYSTEM ADMINISTRATOR Unavailable [phone] Radha Weiner RN Unavailable [phone] Encounter Details DateTypeDepartmentCare Team (Latest Contact Info)Okbkjecxogr75/18/2025Travel Social History Tobacco UseTypesPacks/DayYears UsedDateSmoking Tobacco: FormerCigarettesQuit: [...] times a week11/01/2024How often do you attend hoahaoism or hinduism services?Never11/01/2024Do you belong to any clubs or organizations such as hoahaoism groups, unions, Unsocial or athletic groups, or school groups?Yes11/01/2024How often [...] have six or more drinks on one occasion?Wrbcyn7208/13/2024Overall Financial Resource Strain (CARDIA)AnswerDate RecordedHow hard is it for you to pay for the very basics like food, housing, medical care, and heating?Not hard at all 04/09/2024HQ-2AnswerDate RecordedPatient Health Questionnaire-2 Score0 02/25/2025[facility] [place] of Occupational Health - Occupational Stress QuestionnaireAnswerDate RecordedDo you feel stress - tense, restless, nervous, or anxious, or unable to sleep at night because yourmind is troubled all the time - these days?Only a lpfkrt9504/09/2024Exercise Vital SignAnswerDate Recorded On average, how many [...] place to sleep or slept in [facility] (including now)?No10/20/2022Housing Stability Vital SignAnswerDate RecordedIn the last 12 months, was there a time when you were not able to pay the mortgage or rent on time?No11/01/2024In the past 12 months, how many times have you moved where you were living? At any time in the past 12 months, were you homeless or living in a jail (including now)?No11/01/2024Sex and Gender InformationValueDate RecordedSex Assigned at BirthNot on fileLegal YsuXtfv9406/22/2022 7:05 PM EDTGender Identity Not on fileSexual IdpgralgiarFicxenjb82/24/2023 8:33 PM EDTOccupationIndustryJob Start DateJob End DateRetiredNot [...] 1:00 PM Stella Law MAPatient Health Questionnaire-2 Xvvcz03304/27/2024 1:00 PM Stella Law MA * QuestionAnswerDate [...] 1:00 PM Stella Law MAPatient Health Questionnaire-9 Oqcbf38204/27/2024 1:00 PM Stella Law MA documented as of this encounter Plan of Treatment DateTypeDepartmentCare Team (Latest Contact Info)Nxytzudcgsx35/30/2025 2:15 PM ESTOffice Visit [facility] [address] [place] [address] Tevin Lake, DO [address] [place] [address] 05/28/2025 10:00 AM ESTOffice Visit [facility] [address] [place] [address] Moy Villa MD [address] [place] [address] documented as of this encounter Visit Diagnoses Not on filedocumented in this encounter Additional Health Concerns AssessmentNoted TimePHQ-9 Depression Total Score: 1:00 PM EST documented as of this encounter Care Teams Team MemberRelationshipSpecialtyStart DateEnd Date Moy Villa MD [address] [place] [address] PCP - GeneralFamily Medicine09/28/22 Moy Villa MD [address] [place] [address] PCP - ACO [facility]01/07/23 Coral Ceballos, ENGINEER SYSTEM ADMINISTRATOR [address] [place] [address] Nurse PractitionerFamily Wskhdndc95/30/24 Radha Weiner, YING [address] [place] [address] Registered NurseFamily Medicine10/30/24documented as of this encounter
--- OUTSIDE RECORDS SUMMARY | 2025-03-11 09:13 | XMS_ITS | Encounter Summary ---
Author Organization [facility] Healthcare Address [address] [place] [address] Care Team Providers Care Host/Hostess Ground Name Role Phone Moy Villa MD Primary Care Provider [phone] Moy Villa MD Unavailable [phone] [address] Ceballos SHEET IRONWORKER Unavailable [phone] Radha Weiner RN Unavailable [phone] Encounter Details DateTypeDepartmentCare Team (Latest Contact Info)Dhffeuxxexi64/18/2025Patient Outreach [facility] [address] [place] [phone] Radha Weiner, Y[place] [address] [place] [address] Social History Tobacco UseTypesPacks/DayYears UsedDateSmoking Tobacco: FormerCigarettesQuit: [...] times a week11/01/2024How often do you attend methodist or baptism services?Never11/01/2024Do you belong to any clubs or organizations such as methodist groups, unions, fraternal or athletic groups, or [...] have six or more drinks on one occasion?Xuhdli2608/13/2024Overall Financial Resource Strain (CARDIA)AnswerDate RecordedHow hard is it for you to pay for the very basics like food, housing, medical care, and heating?Not hard at all 04/09/2024HQ-2AnswerDate RecordedPatient Health Questionnaire-2 Score0 02/25/2025[facility] [place] of Occup[facility] - Occupational Stress QuestionnaireAnswerDate RecordedDo you feel stress - tense, restless, nervous, or anxious, or unable to sleep at night because yourmind is troubled all the time - these days?Only a yzojlo4804/09/2024Exercise Vital SignAnswerDate Recorded On average, how many [...] InformationValueDate RecordedSex Assigned at BirthNot on fileLegal VqxNjqg1206/22/2022 7:05 PM EDTGender Identity Not on fileSexual IquwvuocvmyPzwvxdsg91/24/2023 8:33 PM EDTOccupationIndustryJob Start DateJob End DateRetiredNot on fileNot on fileNot on filedocumented as of this encounter Progress Notes * Radha Weiner RN - 02/25/2025 9:10 AM EST Refill request Isidorostephanie 01/27/25 NOV 03/03/25 Advised will send to [...] Plan of Treatment DateTypeDepartmentCare Team (Latest Contact Info)Spsfqlqwiml57/30/2025 2:15 PM ESTOffice Visit [facility] [address] [place] [phone] Tevin Lake, DO [address] [place] [address] 05/28/2025 10:00 AM ESTOffice Visit [facility] [address] [place] [address] Moy Villa MD [address] [place] [address] documented as of this encounter Visit Diagnoses Diagnosis Essential hypertension Unspecified essential hypertension Other chronic pain documented in this encounter Additional Health Concerns AssessmentNoted TimePHQ-9 Depression Total Score: 1:00 PM EST documented as of this encounter Care Teams Team MemberRelationshipSpecialtyStart DateEnd Date Moy Villa MD [address] [place] [address] PCP - GeneralFagaly Medicine09/28/22 Moy Villa MD [address] [place] [address] PCP - ACO [facility]01/07/23 Coral Ceballos NP [address] [place] [address] Nurse PractitionerFamily Tmqhmjek61/30/24 Radha Weiner, YING [address] [place] [address] Registered NurseFamily Medicine10/30/24documented as of this encounter
--- OUTSIDE RECORDS SUMMARY | 2025-03-11 09:13 | XMS_ITS | Encounter Summary ---
Author Organization [facility] Address [address] [place] [address] Care Team Providers Care Photovoltaic Fabrication Technician Name Role Phone Moy Villa MD Primary Care Provider [phone] Moy Villa MD Unavailable [phone] Cor[address] Ceballos REAL ESTATE LEGAL ASSISTANT Unavailable [phone] Radha Weiner RN Unavailable [phone] Reason for Visit * ReasonOnset DateCommentsMed Khlkez1702/24/2025 Encounter Details DateTypeDepartmentCare Team (Latest Contact Info)Xladebciyrv48/17/2025Refill [facility] [address] [place] [address] Coral Ceballos, REAL ESTATE LEGAL ASSISTANT [address] [place] [address] Low libido Social History Tobacco [...] week11/01/2024How often do you attend congregational or denominational services?Never11/01/2024Do you belong to any clubs or organizations such as congregational groups, unions, fraternal or athletic groups, or [...] have six or more drinks on one occasion?Yytadk5708/13/2024Overall Financial Resource Strain (CARDIA)AnswerDate RecordedHow hard is it for you to pay for the very basics like food, housing, medical care, and heating?Not hard at all 04/09/2024HQ-2AnswerDate RecordedPatient Health Questionnaire-2 Score0 02/25/2025[facility] [place] [facility] Occup[facility] - Occupational Stress QuestionnaireAnswerDate RecordedDo you feel stress - tense, restless, nervous, or anxious, or unable to sleep at night because yourmind is troubled all the time - these days?Only a qheocp34/31/2024Exercise Vital SignAnswerDate Recorded On average, how many [...] steady place to sleep or slept in [facility] (including now)?No10/20/2022Housing Stability Vital SignAnswerDate RecordedIn the last 12 months, was there a time when you were not able to pay the mortgage or rent on time?No11/01/2024In the past 12 months, how many times have you moved where you were living? At any time in the past 12 months, were you homeless or living in a fpc (including now)?No11/01/2024Sex and Gender InformationValueDate RecordedSex Assigned at BirthNot on fileLegal PhzHpcs7506/22/2022 7:05 PM EDTGender Identity Not on fileSexual MnxmulpswgfPnpbmteb29/24/2023 8:33 PM EDTOccupationIndustryJob Start DateJob End DateRetiredNot on fileNot on fileNot on filedocumented as of this encounter Miscellaneous Notes * Telephone Encounter - Natalie Mackay MA - 02/25/2025 8:07 AM EST [place]: 01/27/2025 NOV: 03/03/2025 documented in this encounter Plan of Treatment DateTypeDepartmentCare Team (Latest Contact Info)Hqhwvgdgnvv20/30/2025 2:15 PM ESTOffice Visit [facility] [address] [place] [phone] Tevin Lake, [address] [place] [address] 05/28/2025 10:00 AM ESTOffice Visit [facility] [address] [place] [phone] Moy Villa MD [address] [place] [address] documented as of this encounter Visit Diagnoses Diagnosis Low libido documented in this encounter Additional Health Concerns AssessmentNoted TimePHQ-9 Depression Total Score: 10:31 AM EDT documented as of this encounter Care Teams Team MemberRelationshipSpecialtyStart DateEnd Date Moy Villa MD [address] [place] [address] PCP - GeneralFamily Medicine09/28/22 Moy Villa MD [address] [place] [address] PCP - ACO [facility]01/07/23 Coral Ceballos NP [address] [place] [address] Nurse PractitionerFamily Rxnmkbjl30/30/24 Radha Weiner, IYNG [address] [place] [address] Registered NurseFamily Medicine10/30/24documented as of this encounter
--- OUTSIDE RECORDS SUMMARY | 2025-03-11 09:13 | XMS_ITS | Encounter Summary ---
Author Organization [facility] Address [address] [place] [address] Care Team Providers Care Strategy Manager Name Role Phone Moy Villa MD Primary Care Provider [phone] Moy Villa MD Unavailable [phone]os JEWELRY SALES COORDINATOR Unavailable [phone] Radha Weiner RN Unavailable [phone] Reason for Visit * ReasonOnset DateCommentslab pcvedwzv36/19/2025 Encounter Details DateTypeDepartmentCare Team (Latest Contact Info)Kqooutvglpa89/19/2025Telephone [facility] [address] [place] [address] Coral Ceballos, JEWELRY SALES COORDINATOR [address] [place] [address] lab question Social History Tobacco UseTypesPacks/DayYears [...] times a week11/01/2024How often do you attend scientologist or orthodoxy services?Never11/01/2024Do you belong to any clubs or organizations such as scientologist groups, unions, fraternal or athletic groups, or [...] have six or more drinks on one occasion?Cvxdaj3508/13/2024Overall Financial Resource Strain (CARDIA)AnswerDate RecordedHow hard is it for you to pay for the very basics like food, housing, medical care, and heating?Not hard at all 04/09/2024HQ-2AnswerDate RecordedPatient Health Questionnaire-2 Score0 02/25/2025[facility] [place] of Occupational Health - Occupational Stress QuestionnaireAnswerDate RecordedDo you feel stress - tense, restless, nervous, or anxious, or unable to sleep at night because yourmind is troubled all the time - these days?Only a bfufhe4504/09/2024Exercise Vital SignAnswerDate Recorded On average, how many [...] steady place to sleep or slept in [facility] (including now)?No10/20/2022Housing Stability Vital SignAnswerDate [...] InformationValueDate RecordedSex Assigned at BirthNot on fileLegal OfoKxph7106/22/2022 7:05 PM EDTGender Identity Not on fileSexual DhinatfmlxvAladobpb86/24/2023 8:33 PM EDTOccupationIndustryJob Start DateJob End DateRetiredNot [...] Plan of Treatment DateTypeDepartmentCare Team (Latest Contact Info)Wkgogwsflqr44/30/2025 2:15 PM ESTOffice Visit [facility] [address] [place] [address] Tevin Lake, DO [address] [place] [address] 05/28/2025 10:00 AM ESTOffice Visit [facility] [address] [place] [phone] Moy Villa MD [address] [place] [address] documented as of this encounter Visit Diagnoses Not on filedocumented in this encounter Additional Health Concerns AssessmentNoted TimePHQ-9 Depression Total Score: 1:00 PM EST documented as of this encounter Care Teams Team MemberRelationshipSpecialtyStart DateEnd Date Moy Villa MD [address] [place] [address] PCP - GeneralFamily Medicine09/28/22 Moy Villa MD [address] [place] [address] PCP - ACO [facility]01/07/23 Coral Ceballos NP [address] [place] [address] Nurse PractitionerFamily Svltptbh39/30/24 Radha Weiner, RN [address] [place] [address] Registered NurseFamily Medicine10/30/24documented as of this encounter
[2025-03-11] MEDS: CEFAZOLIN SODIUM 1 GM/50 ML D5W PREMIX IV (09:46)
[2025-03-11] MEDS: GENTAMICIN SULFATE 120 MG in 0.9 % SODIUM CHLORIDE 100 ML 206 MG IV (10:56)
[2025-03-11] MEDS: LIDOCAINE HCL 1% 100 MG/10 ML MDV 20 ML INJ (11:14)
--- NOTE | 2025-03-11 11:51 | P.URON_ITS ---
Urology Surgery Operative Note Operative Note Procedure Date: 03/11/25 Time Out Performed: yes Pre-op Diagnosis: Elevated PSA and prostate lesion by MRI Post-op Diagnosis: same as pre-op Procedures performed: 1. Transperineal prostate MRI fusion biopsies Anesthesia: MAC and local Primary Surgeon: Norman Wakefield Complications: None Estimated blood loss (mL): 10 Findings: 1 area of interest on the right transitional zone Specimens: 1. 5 dedicated biopsies from the area of interest. These were sent separately labeled area of interest. 2. Standard precision point mapped out biopsies; 10 from each side. Indications for Procedures: This gentleman has a history of prostatitis and elevated PSA. His recent MRI revealed a PI-RADS 4 lesion. He now presents for transperineal prostate MRI fusion biopsies. He has signed an informed consent after risks were explained. Some of these risks include bleeding, infection, urosepsis and anesthesia to name a few. Detailed description of Procedure: The patient was kept on the [place] bed and brought to the operating room. He was in the supine position. SCDs were placed on his lower extremities and turned on and functioning during the entire case. Timeout was done by all parties in the room. We all agreed upon the patient's identification and the planned procedures for this patient. The patient was then repositioned into the modified dorsolithotomy position after MAC anesthesia was administered. All pressure points were satisfactorily padded. Perineum was sterilely prepped and draped in the usual fashion. I started by passing the UroNav ultrasound probe per rectum with the precision point device attached. I then marked to the right and the left sides of the perineum where punctures would take place. I then used 1% plain lidocaine and created a wheal in each of these 2 sites and then infiltrated deeply. I then passed the spinal needle through the introducer and into the patient's right side and then achieved deeper anesthesia up to the apex of the prostate. This was done on both sides. We then did segmentation so as to fuse the MRI images onto the live ultrasound. At this time we then identified the area of interest and lined it up. I then was able to take 5 excellent biopsies from the area of interest covering the entire area. These were all sent separately labeled area of interest. I then did the precision point mapped out biopsies. First the posterior areas were done lateral medial and base on both sides. Then the anterior areas were done medial and lateral. 2 biopsies were taken from each side. At the end of the procedure the probe was removed. He was then [facility] and wheeled to PACU in stable condition.
[2025-03-11 11:53] VITALS: BP 106/65; PULSE 65; TEMP 36.5; O2SAT 93
[2025-03-11 12:08] VITALS: BP 113/80; PULSE 66; O2SAT 96
[2025-03-11 12:23] VITALS: BP 111/85; PULSE 66; O2SAT 99
[2025-03-11 12:53] VITALS: BP 108/62; PULSE 66; O2SAT 94
== END 2025-03-11 13:05 | disposition home or self-care (01) ==
LOC: SURGOUT 09:09
PROVIDERS: PCP Family Medicine; Visit Provider Urology
PROC: (CPT 55700; principal; 2025-03-11 10:00)
DX: R97.20 Elevated prostate specific antigen [PSA] (principal); N42.9 Disorder of prostate, unspecified; E78.5 Hyperlipidemia, unspecified; M19.90 Unspecified osteoarthritis, unspecified site; I10 Essential (primary) hypertension; I25.10 Atherosclerotic heart disease of native coronary artery without angina pectoris; Z87.891 Personal history of nicotine dependence; I25.2 Old myocardial infarction; Z95.5 Presence of coronary angioplasty implant and graft; N40.1 Benign prostatic hyperplasia with lower urinary tract symptoms; F41.9 Anxiety disorder, unspecified
CPT/HCPCS: 55700; 36415; J0131; J0690; J1100; J1580; J2250; J2371; J2704